=== PATIENT | female | born 1980 | race Caucasian/White ===

== ENCOUNTER → 2016-07-22 | Outpatient (CLI) | payer OTHER ==
[~2016-07-22] MED LIST: ALBUAER INH; ALBUAER2 INH; BUDE0.25 INH; ESCI10TA17 PO; FLUT0.15 INH; IPRASOL4 INH; MONT1TAB3 PO; MULT-506 PO; OMEP40CA PO; PLMINSR25 INH; PRED20TA2 PO; PRLSR20 PO; PROM25TA9 PO; PRVIN525X INH; RANI300T PO; RANI300T2 PO; VNTHFA/IN INH
--- NOTE | 2016-07-22 16:03 | DIAGNOSTIC IMAGING REPORT ---
Right upper quadrant ultrasound GALLBLADDER-ABD LIMITED CLINICAL HISTORY: R10.11 Abdominal pain, RUQ (right upper quadrant)Eval for joesph. Pain. Nausea. TECHNIQUE: Ultrasound COMPARISON STUDY: 07/03/2015 FINDINGS: Fatty infiltration of liver. Normal gallbladder. Common bile duct 4 mm. Pancreas and right kidney unremarkable. IMPRESSION: Fatty infiltration of liver. Otherwise negative study Electronically signed by: Norberto Craft M.D. 07/22/2016 4:02 PM Dictated Date/Time: 07/22/2016 4:01 PM
[2016-07-22 16:37] LABS: BASO % 0.5 %; BASO ABS # 0.03 K/uL (0-0.2); COMPLETE YES; EOS % 1.2 %; HEMATOCRIT 38.4 % (37-47); IG% 0.2 %; LYMPH % 34.9 %; LYMPH ABS # 2.27 K/uL (1.2-3.4); MEAN CELL VOLUME 86.3 fL (80-100); MEAN CORPUSCULAR HGB CONC 33.6 g/dl (32-36); MEAN PLATELET VOLUME 9.6 fL (7.4-10.4); MONO % 6.8 %; NEUT % 56.4 %; PLATELET COUNT 370 K/uL (130-400); RED BLOOD COUNT 4.45 M/uL (4.2-5.4); WHITE BLOOD COUNT 6.51 K/uL (4.8-10.8)
[2016-07-22 16:52] LABS: MANUAL MICROSCOPIC REQUIRED? YES; URINE APPEARANCE SL CLOUDY (CLEAR); URINE BILIRUBIN NEG (NEG); URINE COLOR YELLOW; URINE NITRITE NEG (NEG); URINE PH 5.5 (4.5-7.5); URINE SPECIFIC GRAVITY >= 1.030 (1.000-1.030); UROBILINOGEN NEG (NEG)
[2016-07-22 16:55] LABS: ALT/SGPT 23 U/L (12-78); AMYLASE 92 U/L (25-115); BLOOD UREA NITROGEN 10 mg/dl (7-18); BUN/CREATININE RATIO 10.6 (10-20); CALCIUM 8.9 mg/dl (8.5-10.1); CARBON DIOXIDE 27 mmol/L (21-32); CHLORIDE 106 mmol/L (98-107); CREATININE 0.98 mg/dl (0.60-1.20); GLUCOSE 84 mg/dl (70-99); POTASSIUM 3.9 mmol/L (3.5-5.1); SODIUM 141 mmol/L (136-145)
[2016-07-22 16:59] LABS: ALB/GLOB RATIO 0.9 (0.9-2); ALKALINE PHOSPHATASE 51 U/L (45-117); AST/SGOT 36 U/L (15-37); CHOLESTEROL 185 mg/dl (0-200); CHOLESTEROL/HDL RATIO 3.4; HDL CHOLESTEROL 55 mg/dl; TRIGLYCERIDES 113 mg/dl (0-150); VERY LOW DENSITY LIPOPROT CALC 23 mg/dl
[2016-07-22 17:05] LABS: REVIEW REQ? NO
[2016-07-22 17:08] LABS: URINE RBC 0-4 /hpf (0-4); URINE WBC 0 /hpf (0-5)
[2016-07-22 17:10] LABS: URINE BACTERIA 1+ (NEG); ZZUR CULT IF INDIC CLEAN CATCH YES
== END | disposition home or self-care (01) ==
LOC: C.ULTR 15:14
PROVIDERS: ATTEND Nurse Practitioner Family
DX: R10.11 Right upper quadrant pain (principal); Z13.220 Encounter for screening for lipoid disorders; K76.0 Fatty (change of) liver, not elsewhere classified

== ENCOUNTER → 2016-08-10 | Outpatient (CLI) | payer OTHER ==
[~2016-08-10] MED LIST changes: -PRED20TA2 PO; +SINCALIDE INJ 2.1 MCG in SODIUM CHLORIDE 0.9% 100ML 100 ML IV ONE
--- NOTE | 2016-08-10 11:48 | DIAGNOSTIC IMAGING REPORT ---
NUCLEAR HEPATOBILIARY SCAN WITH EJECTION FRACTION IMAGING CLINICAL HISTORY: Right upper quadrant abdominal pain. COMPARISON STUDY: Abdominal ultrasound dated 07/22/16. TECHNIQUE: Dynamic images of the liver and anterior abdomen were obtained every 5 minutes for a total of 60 minutes following the IV administration of 5.7mCi of technetium 99m Choletec. 2.1 mcg of sincalide was then injected with additional images acquired every 5 minutes for 45 minutes to calculate the gallbladder ejection fraction. The patient noted discomfort with the Kinevac injection. FINDINGS: The hepatobiliary scan shows prompt and homogeneous hepatic uptake. There is visualized activity within the intra and extrahepatic biliary tree at 15 minutes, and within the gallbladder at 15 minutes. There is normal biliary to bowel transit, with small bowel visualized by 70 minutes. On the sincalide imaging, the gallbladder ejection fraction was measured at 65%. IMPRESSION: 1. Unremarkable nuclear hepatobiliary scan. There is no scintigraphic evidence of cholecystitis. 2. The gallbladder ejection fraction measured 65% which is normal. Electronically signed by: Carlos Rodriguez M.D. 08/10/2016 11:47 AM Dictated Date/Time: 08/10/2016 11:45 AM
== END | disposition home or self-care (01) ==
LOC: C.NUCL 07:55
PROVIDERS: ATTEND Surgery
DX: R10.11 Right upper quadrant pain (principal)

== ENCOUNTER → 2016-08-31 | Day surgery (SDC) | payer OTHER ==
[2016-08-28 14:39] VITALS: BMI 42.0
[~2016-08-31] VITALS: Ht 157.5 cm; Wt 104.5 kg
[~2016-08-31] MED LIST changes: -ALBUAER2 INH; -BUDE0.25 INH; -ESCI10TA17 PO; +LIDOCAINE HCL 2% 2 ML VIAL (20MG/ML) ONE; -MULT-506 PO; -OMEP40CA PO; +PROPOFOL IV EMULSION 10 MG/ML 20 ML VIAL IV ONE; -RANI300T PO; -SINCALIDE INJ 2.1 MCG in SODIUM CHLORIDE 0.9% 100ML 100 ML IV ONE
[2016-08-31 09:37] VITALS: Ht 157.5 cm; Wt 104.5 kg
--- NOTE | 2016-08-31 10:10 | Endo History and Physical ---
History & Physical Date of Service: Aug 31, 2016. Chief Complaint: ABDOMINAL PAIN Referring Physician: GEOVANNY PRINCE NP History of Present Illness 36 yo CF who presents for EGD secondary to RUQ abdominal pain. Past Surgical History Hx Cardiac Surgery: No Hx Internal Defibrillator: No Hx Pacemaker: No Hx Abdominal Surgery: Yes (LEFT OOPHERECTOMY, PARTIAL HYSTER, , APPY, TUBAL LIGATION) Hx of Implantable Prosthesis: No Hx Post-Op Nausea and Vomiting: Yes Hx Cancer Surgery: No Hx Thoracic Surgery: No Hx Orthopedic: No Hx Urinary Tract Surgery: No Family History IBD Social History Smoking Status: Never Smoker Hx Substance Use: No Hx Alcohol Use: Yes (RARELY) Allergies Coded Allergies: Ciprofloxacin (Verified Allergy, Intermediate, FACIAL SWELLING/HIVES, 08/28) Moxifloxacin (Verified Adverse Reaction, Mild, VOMITING, 08/28/16) Current Medications Reported Home Medications Medications Dose Route/Sig Max Daily Dose Days Date Category Zantac (Ranitidine HCl) 300 Mg Tab 300 Mg PO HS 08/28/16 Reported Proventil Hfa (Albuterol Sulfate) 108 Mcg/Act Aer 1-2 Puff INH DIRECTED PRN 08/28/16 Reported Phenergan (Promethazine HCl) 25 Mg Tab 25 Mg PO Q6H PRN 08/28/16 Reported Prilosec (Omeprazole) 20 Mg Capcr 20 Mg PO BID 08/28/16 Reported Singulair (Montelukast Sodium) 10 Mg Tab 10 Mg PO HS 08/28/16 Reported Duoneb (Ipratropium-Albuterol) 3 Ml Nebu 1 Treatment INH Q4H PRN 08/28/16 Reported Flonase Allergy Relief (Fluticasone Propionate (Nasal)) 50 Mcg/Act Spr 1 [place] INH QAM 08/28/16 Reported Pulmicort Respules 0.25MG/2ML (Budesonide) 0.25 Mg/2 Ml Nebu 2 Ml INH DIRECTED PRN 08/28/16 Reported Vital Signs Weight (Kilograms): 104.55 Height (Feet): 5 Height (Inches): 2 Date Time Temp Pulse Resp B/P Pulse Ox O2 Delivery O2 Flow Rate FiO2 08/31/16 09:35 36.8 58 16 114/60 98 Room Air Physical Exam General Appearance: WD/WN, no apparent distress Respiratory/Chest: Auscultation: breath sounds normal Cardiovascular: Heart Auscultation: RRR Abdomen: Bowel Sounds: normal Inspection & Palpation: soft, non-distended, no tenderness, guarding & rebound Assessment and Plan Assessment: 36 yo CF who presents for EGD secondary to RUQ abdominal pain. Plan: Proceed with EGD.
--- NOTE | 2016-08-31 11:06 | GI REPORT ---
Procedure Date: 08/31/2016 10:48 AM Procedure: Upper GI endoscopy Indications: Abdominal pain in the right upper quadrant Medicines: Monitored Anesthesia Care Complications: No immediate complications. Estimated Blood Loss: Estimated blood loss: none. Procedure: Pre-Anesthesia Assessment: - Prior to the procedure, a History and Physical was performed, and patient medications and allergies were reviewed. The patient's tolerance of previous anesthesia was also reviewed. The risks and benefits of the procedure and the sedation options and risks were discussed with the patient. All questions were answered, and informed consent was obtained. Prior Anticoagulants: The patient has taken no previous anticoagulant or antiplatelet agents. ASA Grade Assessment: III - A patient with severe systemic disease. After reviewing the risks and benefits, the patient was deemed in satisfactory condition to undergo the procedure. After obtaining informed consent, the endoscope was passed under direct vision. Throughout the procedure, the patient's blood pressure, pulse, and oxygen saturations were monitored continuously. The scope was introduced through the mouth, and advanced to the second part of duodenum. The upper GI endoscopy was accomplished without difficulty. The patient tolerated the procedure well. Findings: LA Grade A (one or more mucosal breaks less than 5 mm, not extending between tops of 2 mucosal folds) esophagitis with no bleeding was found. A small hiatus hernia was present. Localized mild inflammation characterized by erythema was found in the gastric antrum. Biopsies were taken with a cold forceps for histology. The examined duodenum was normal. Impression: - LA Grade A reflux esophagitis. - Small hiatus hernia. - Gastritis. Biopsied. - Normal examined duodenum. Recommendation: - Resume previous diet. - Continue present medications. - Await pathology results. - Return to primary care physician as previously scheduled. Cayetano Garcia DO 08/31/2016 11:06:04 AM This report has been signed electronically. Note Initiated On: 08/31/2016 10:48 AM I attest to the content of the Intraoperative Record and orders documented therein, exceptions below
--- NOTE | 2016-08-31 11:14 | Discharge Instructions ---
Endoscopy Patient Instructions Date / Procedure(s) Performed Aug 31, 2016. EGD Allergy Information Coded Allergies: Ciprofloxacin (Verified Allergy, Intermediate, FACIAL SWELLING/HIVES, 08/28) Moxifloxacin (Verified Adverse Reaction, Mild, VOMITING, 08/28/16) Discharge Date / Findings Aug 31, 2016. Gastritis s/p biopsies Hiatal hernia Reflux esophagitis Medication Instructions OK to resume all medications today as prescribed. Reported Home Medications Medications Dose Route/Sig Max Daily Dose Days Date Category Zantac (Ranitidine HCl) 300 Mg Tab 300 Mg PO HS 08/28/16 Reported Proventil Hfa (Albuterol Sulfate) 108 Mcg/Act Aer 1-2 Puff INH DIRECTED PRN 08/28/16 Reported Phenergan (Promethazine HCl) 25 Mg Tab 25 Mg PO Q6H PRN 08/28/16 Reported Prilosec (Omeprazole) 20 Mg Capcr 20 Mg PO BID 08/28/16 Reported Singulair (Montelukast Sodium) 10 Mg Tab 10 Mg PO HS 08/28/16 Reported Duoneb (Ipratropium-Albuterol) 3 Ml Nebu 1 Treatment INH Q4H PRN 08/28/16 Reported Flonase Allergy Relief (Fluticasone Propionate (Nasal)) 50 Mcg/Act Spr 1 [place] INH QAM 08/28/16 Reported Pulmicort Respules 0.25MG/2ML (Budesonide) 0.25 Mg/2 Ml Nebu 2 Ml INH DIRECTED PRN 08/28/16 Reported Provider Instructions Activity Restrictions - No exercising or heavy lifting for 24 hours. - Do not drink alcohol the day of the procedure. - Do not drive a car or operate machinery until the day after the procedure. - Do not make any important decisions or sign important papers in 24 hours after the procedure. Following Day: - Return to full activity which may include returning to work/school. Diet Start your diet with liquids and light foods (jello, soup, juice, toast). Then eat your usual diet if not nauseated. Treatment For Common After Affects For mild abdominal pain, bloating, or excessive gas: - Rest - Eat lightly - Lie on right side Follow-Up Information Follow-up with GEOVANNY PRINCE NP as scheduled Anesthesia Information What You Should Know You have had a procedure that required some medicine to reduce anxiety and discomfort. This treatment is called moderate sedation. After receiving the treatment, you may be sleepy, but you will be able to breathe on your own. The effects of the treatment may last for several hours. Follow these instructions along with Activity/Diet recommendations noted above: * Do NOT do anything where dizziness or clumsiness would be dangerous. * Rest quietly at home today, then you can be up and about tomorrow. * Have a responsible person stay with you the rest of today. * You may have had an I.V. today. If so, you may take the dressing off later today. Recommendations Call your doctor if: * Trouble breathing * Continuous vomiting for more than 24 hours * Temperature above 101 degrees * Severe abdominal pain or bloating * Pain not relieved by pain medicine ordered * There is increased drainage or redness from any incision * A large amount of rectal bleeding greater than 2-3 tablespoons. (If you had a polyp/s removed or have hemorrhoids, a small amount of blood - from the rectum is to be expected.) * You have any unanswered questions or concerns. IN THE EVENT OF A SERIOUS EMERGENCY, GO TO THE NEAREST EMERGENCY ROOM Your discharge instructions were prepared by provider Cayeatno Garcia. Patient Instructions Signature Page Estefanía Phani Patient (or Guardian) Signature/Date: I have read and understand the instructions given to me by my caregivers. Caregiver/RN/Doctor Signature/Date: The above-named patient and/or guardian has received patient instructions on this date. + Original Patient Signature Page (only) stays with chart. Please make copy for patient.
[2016-08-31 11:34] VITALS: BP 106/57; PULSE 64; O2SAT 98
--- NOTE | 2016-08-31 11:34 | Anesthesiology Progress Note ---
Anesthesia Post Op Note Date & Time Aug 31, 2016 at 11:33 Vital Signs Pain Intensity: 6 Vital Signs Past 12 Hours Date Time Temp Pulse Resp B/P Pulse Ox O2 Delivery O2 Flow Rate FiO2 08/31/16 11:19 57 18 113/58 98 Room Air 08/31/16 11:04 75 18 91/52 97 Room Air 08/31/16 09:35 36.8 58 16 114/60 98 Room Air Notes Mental Status: alert / awake / arousable, participated in evaluation Pt Amnestic to Procedure: Yes Nausea / Vomiting: adequately controlled Pain: adequately controlled Airway Patency, RR, SpO2: stable & adequate BP & HR: stable & adequate Hydration State: stable & adequate Anesthetic Complications: no major complications apparent
== END | disposition home or self-care (01) ==
LOC: C.GI 09:16
PROVIDERS: ATTEND Internal Medicine
DX: R10.11 Right upper quadrant pain (principal); K21.0 Gastro-esophageal reflux disease with esophagitis; K44.9 Diaphragmatic hernia without obstruction or gangrene

== ENCOUNTER → 2016-09-15 | Outpatient (CLI) | payer OTHER ==
[~2016-09-15] MED LIST changes: -LIDOCAINE HCL 2% 2 ML VIAL (20MG/ML) ONE; -PROPOFOL IV EMULSION 10 MG/ML 20 ML VIAL IV ONE; -PRVIN525X INH; -VNTHFA/IN INH
[2016-09-16 12:53] LABS: URINE APPEARANCE CLEAR (CLEAR); URINE BILIRUBIN NEG (NEG); URINE COLOR YELLOW; URINE NITRITE NEG (NEG); URINE SPECIFIC GRAVITY 1.021 (1.000-1.030); UROBILINOGEN NEG (NEG)
[2016-09-16 13:04] LABS: MANUAL MICROSCOPIC REQUIRED? NO; REVIEW REQ? YES
== END | disposition home or self-care (01) ==
LOC: C.LABSPEC 11:28
PROVIDERS: ATTEND Nurse Practitioner Family
DX: R35.0 Frequency of micturition (principal); R39.15 Urgency of urination; A49.8 Other bacterial infections of unspecified site

== ENCOUNTER → 2017-01-07 | Outpatient (CLI) | payer OTHER ==
[2017-01-10 14:08] LABS: CHLAMYDIA TRACH RNA*** NOT DETECTED (NOT DETECTED); GC (NEIS GONORRHOEAE)RNA** NOT DETECTED (NOT DETECTED)
== END | disposition home or self-care (01) ==
LOC: C.LABSPEC 13:13
PROVIDERS: ATTEND Obstetrics & Gynecology
DX: Z11.3 Encounter for screening for infections with a predominantly sexual mode of transmission (principal)

== ENCOUNTER → 2017-01-07 | Outpatient (CLI) | payer OTHER | END | disposition home or self-care (01) | LOC: C.LAB 10:50 | PROVIDERS: ATTEND Obstetrics & Gynecology | DX: Z11.3 Encounter for screening for infections with a predominantly sexual mode of transmission (principal) ==

== ENCOUNTER → 2017-05-20 | Outpatient (CLI) | payer OTHER ==
[2017-05-20 17:55] LABS: BASO % 0.4 %; BASO ABS # 0.03 K/uL (0-0.2); COMPLETE YES; EOS % 4.2 %; HEMATOCRIT 38.6 % (37-47); IG% 0.3 %; LYMPH % 37.2 %; LYMPH ABS # 2.49 K/uL (1.2-3.4); MEAN CELL VOLUME 87.9 fL (80-100); MEAN CORPUSCULAR HEMOGLOBIN 28.9 pg (25-34); MEAN CORPUSCULAR HGB CONC 32.9 g/dl (32-36); MEAN PLATELET VOLUME 9.3 fL (7.4-10.4); MONO % 9.4 %; NEUT % 48.5 %; PLATELET COUNT 364 K/uL (130-400); RED BLOOD COUNT 4.39 M/uL (4.2-5.4)
[2017-05-20 18:11] LABS: ALT/SGPT 22 U/L (12-78); BLOOD UREA NITROGEN 15 mg/dl (7-18); BUN/CREATININE RATIO 15.4 (10-20); C-REACTIVE PROTEIN < 0.29 mg/dl (0-0.29); CALCIUM 8.5 mg/dl (8.5-10.1); CARBON DIOXIDE 26 mmol/L (21-32); CHLORIDE 105 mmol/L (98-107); GLUCOSE 79 mg/dl (70-99); POTASSIUM 3.8 mmol/L (3.5-5.1); SODIUM 138 mmol/L (136-145)
[2017-05-20 18:13] LABS: ALB/GLOB RATIO 0.9 (0.9-2); ALKALINE PHOSPHATASE 62 U/L (45-117); AST/SGOT 35 U/L (15-37)
[2017-05-25 05:31] LABS: IGA SERUM 242 mg/dL (81-463); TIS TRANS IGA 1 U/mL (<4)
== END | disposition home or self-care (01) ==
LOC: C.LAB1850 16:39
PROVIDERS: ATTEND Registered Nurse
DX: K63.89 Other specified diseases of intestine (principal)

== ENCOUNTER → 2017-07-06 | Outpatient (CLI) | payer OTHER | END | disposition home or self-care (01) | LOC: C.LAB1850 11:14 | PROVIDERS: ATTEND Family Medicine | DX: E53.8 Deficiency of other specified B group vitamins (principal); R53.83 Other fatigue ==

== ENCOUNTER → 2017-07-06 | Outpatient (CLI) | payer OTHER | END | disposition home or self-care (01) | LOC: C.PAPS 13:26 | PROVIDERS: ATTEND Obstetrics & Gynecology | DX: Z01.419 Encounter for gynecological examination (general) (routine) without abnormal findings (principal) ==

== ENCOUNTER → 2017-07-12 | Outpatient (CLI) | payer OTHER ==
--- NOTE | 2017-07-12 16:16 | DIAGNOSTIC IMAGING REPORT ---
CHEST 2 VIEWS ROUTINE HISTORY: J45.901 Asthma with acute [id number] COMPARISON: Chest 09/23/2013. FINDINGS: The lungs are clear. Cardiac silhouette is normal in size. No pleural effusions. No pneumothorax. IMPRESSION: No acute process. Electronically signed by: German Slade M.D. 07/12/2017 4:15 PM Dictated Date/Time: 07/12/2017 4:14 PM
== END | disposition home or self-care (01) ==
LOC: C.LAB1850 15:38
PROVIDERS: ATTEND Nurse Practitioner Family
DX: J45.901 Unspecified asthma with (acute) exacerbation (principal)

== ENCOUNTER 2020-04-21 19:11 | Inpatient (IN) ==
[2020-04-21] MEDS ORDERED: SODIUM CHLORIDE 0.9% 1000ML 1,000 ML IV ONE (19:28)
--- NOTE | 2020-04-21 19:32 | Emergency Department Note ---
Impression & Plan Syncope, Anemia, GI bleed ED Provider Note NAME: SHANA TATE AGE: 39 SEX: F : 1980 ARRIVES VIA: Walk-In INFORMANT: Patient ED PROVIDER(S): Garland Khan DO CHIEF COMPLAINT: Unresponsiveness HPI: Patient is a 39-year-old female with a past medical history of asthma and esophagitis and Crohn's disease who presents the ER for an episode where she pas sed out and had diffuse upper body shaking for about 20 seconds. This resolved. She was out for about a total of 2 to 3 minutes. When she woke up she was a little confused but within 3 minutes knew exactly where she was or what was and what was going on. This was witnessed by her daughters. Following this she has some paresthesias of the left lateral mid forearm to 1st digit. No weakness. S he also has some paresthesias in her tongue. Denies any loss of bowel or bladder. Admits to some midsternal chest pain. No shortness of breath. No belly pain nausea vomiting or diarrhea. She has had this happen to her once before in the past but was never seen. ROS: See above HPI for pertinent positives & negatives. A total of 10 systems reviewed and were otherwise negative. PAST MEDICAL HISTORY:See Below PAST SURGICAL HISTORY:See Below FAMILY HISTORY:See Below SOCIAL HISTORY:See Below HOME MEDICATIONS:See Below ALLERGIES:See Below VITALS:See Below PHYSICAL EXAMINATION: GENERAL: Sitting up in bed, alert, well appearing, well nourished, no distress, non-toxic EYE EXAM: normal conjunctiva. PERRL and EOM's grossly intact. OROPHARYNX: no exudate, no erythema, lips, buccal mucosa, and tongue normal and mucous membranes are moist NECK: supple, no nuchal rigidity, no adenopathy, non-tender LUNGS: Clear to auscultation. Normal chest wall mechanics HEART: no murmurs, S1 normal and S2 normal ABDOMEN: abdomen soft, non-tender, normo-active bowel sounds, no masses, no rebound or guarding. BACK: Back is symmetrical on inspection and there is no deformity, no midline tenderness, no CVA tenderness. SKIN: no rashes and no bruising UPPER EXTREMITIES: upper extremities are grossly normal. LOWER EXTREMITIES: No pitting edema. NEURO EXAM: Normal sensorium, cranial nerves II-XII intact, normal speech, no weakness of arms, no weakness of legs. No drift. Finger to nose intact. Gross sensation intact. [id number] intact. Rapid alternating movements of upper extremities intact MEDICAL DECISION MAKING: Pt is a 39 y/o female who presents to the ER for syncope versus seizure episode of unresponsiveness. There was no shaking of the upper extremities. When she woke up there is a slight postictal phase. She is completely appropriate at this time. She has some paresthesias in the left upper extremity and tongue which are resolved in the tongue and improving in the left hand. She is completely neurologically intact. Significant anemia at 7.3 with a hemoglobin is trended down from 11. D-dimer was elevated and CT angio was performed and unremarkable. BMP on LFTs bilirubin and troponin was negative. Lipase was normal. Rectal with scant heme positive stool. Patient was given IV fluids. EKG was nondiagnostic. She was updated bedside admitted for further work-up of her syncope/seizure in combination with worsening anemia and midsternal chest pain with an unchanged EKG and negative troponin. Triage Nursing notes reviewed. Prior medical records reviewed Vital Signs: reviewed and remarkable for HTN and tachy Differential diagnosis: Differential diagnosis includes etiologies such as infection, hypoglycemia, electrolyte abnormalities, cardiac sources, intracerebral event, trauma, toxi cologic, neurologic, as well as others were entertained. ER treatment provided: See below Diagnostics interpreted by me: ECG: Sinus rhythm rate 81 Normal axis T wave inversion in lead III Normal QTC No PVCs Cardiac Monitoring: An order was placed for continuous cardiac monitoring. The monitor shows a rate of 84 with sinus rhythm. Laboratory studies: As stated above and show below. Imaging studies: CT of the head was negative CT Angio of the chest shows no acute pathology. Consultation(s): Discussed with Dr. Duke Savage for further evaluation ED COURSE: Procedures: none Critical Care: None Past Med/Surg History Medical History (Updated 04/21/20 @ 23:28 by Garland Khan DO) Asthmatic bronchitis delivery delivered Depression Dysfunctional uterine bleeding (11/15/11) Pneumonia Solitary thyroid nodule Surgical History H/O section H/O oophorectomy Left H/O: hysterectomy History of appendectomy Hx of tubal ligation [place] teeth removed Family History Mother Breast cancer Colon cancer Father COPD (chronic obstructive pulmonary disease) Colon cancer Crohn's disease Other Arthritis Asthma Atypical chest pain Cancer Chronic cough Hypertension Kidney stone Migraine Denies family history of Ovarian cancer Prostate cancer Myocardial infarction Social History Smoking Status: Never smoker Hx Alcohol Use: Yes Alcohol type: wine Alcohol Intake Frequency: Monthly or Less Hx Substance Use: No Preferred Language: Venezuelan Communication Ability: Effective Visual Impairment: No Limitations Hearing Ability: Normal marital status: Current Living Situation: Spouse current occupational status: employed current occupation: works at [employer] Feels Safe at Home: Yes Childhood Exposure to Second-Hand Smoke: Yes Dental Care, Regularly: Yes Physical Activity Frequency: 3-4 Times per Week Seatbelt Use: always Sunscreen Use: Yes Do you think of yourself as: straight/heterosexual Allergies Allergies Allergy/AdvReac Type Severity Reaction Status Date / Time Cipro Allergy Intermediate FACIAL Verified 08/31/16 14:37 SWELLING/HIVES ciprofloxacin Allergy MO FACIAL Verified 04/21/20 20:14 SWELLING/HIVES cat dander Allergy Unknown Verified 04/21/20 20:14 dog dander Allergy Unknown Verified 04/21/20 20:14 house dust Allergy Unknown Verified 04/21/20 20:14 mold Allergy Unknown Verified 04/21/20 20:14 pollen extracts Allergy Unknown Verified 04/21/20 20:14 wheat Allergy Unknown Verified 04/21/20 20:14 moxifloxacin AdvReac CA VOMITING Verified 04/21/20 20:14 Home Meds Home Medications Medication Instructions Recorded Confirmed ipratropium-albuterol 3 ml INHALATION Q4H PRN 03/06/18 04/21/20 fluticasone 500 mcg-salmeterol 50 1 puffs INHALATION BID PRN ea 07/11/19 04/21/20 mcg/dose blistr powdr for inhalation fluticasone propionate [Flonase 1 spray INTRANASAL QAM PRN 04/21/20 04/21/20 Allergy Relief] Previous Rx's Medication Instructions Recorded montelukast 10 mg tablet 10 mg PO PM #90 tab 01/19/19 famotidine 20 mg tablet 20 mg PO BID 42 Days #84 tab 04/14/19 albuterol sulfate 90 mcg/actuation 1 - 2 puff INHALATION Q6H PRN #6.7 09/29/19 aerosol inhaler gm inhaler,assist devices,access #1 ea 09/29/19 pantoprazole 40 mg tablet,delayed 40 mg PO BID #180 tab 01/25/20 release escitalopram oxalate 20 mg tablet 20 mg PO DAILY #30 tab 02/14/20 ferrous sulfate 325 mg (65 mg 325 mg PO BID #60 tab 02/23/20 iron) tablet,delayed release cyclobenzaprine 5 mg tablet 5 mg PO DAILY PRN #30 tab 03/27/20 sodium,potassium,mag sulfates 17.5 177 ml PO .COMPLEX #354 ml 04/15/20 gram-3.13 gram-1.6 gram oral soln Results & Data (ED) Vital Signs Vital Signs - 24 hr 04/21/20 19:13 04/21/20 20:38 04/21/20 21:15 Temperature 36.9 C Temperature Source Oral Pulse Rate 100 H Pulse Rate [Finger] 99 H Respiratory Rate 20 21 Respiratory Effort / Characteristics Non-Labored Spontaneous Non-Labored Spontaneous Respiratory Depth Normal Normal Blood Pressure 169/100 H Blood Pressure [Right Arm] 132/94 Blood Pressure Mean 123 Blood Pressure Mean [Right Arm] 106 Pulse Oximetry 98 99 Oxygen Delivery Method Room Air Room Air Room Air Sepsis Recent Fever Within 48 Hours No Sepsis New/Unexplained Change in Mental Status No Sepsis Action Taken by Nursing No Action Required Laboratory Data Result diagrams: 04/21/20 20:10 04/21/20 20:10 Lab Results 04/21/20 04/21/20 04/21/20 Range/Units 20:10 20:10 20:10 WBC 7.67 (4.8-10.8) K/uL RBC 3.77 L (4.2-5.4) M/uL Hgb 7.3 L (12.0-16.0) g/dL Hct 26.0 L (37-47) % MCV 69.0 L (80-100) fL MCH 19.4 L (25-34) pg MCHC 28.1 L (32-36) g/dL RDW Std Deviation 44.5 (36.4-46.3) fL RDW Coeff of [place] 17.5 H (11.5-14.5) % Plt Count 531 H (130-400) K/uL MPV 9.0 (7.4-10.4) fL Immature Gran % (Auto) 0.3 % Neut % (Auto) 57.3 % Lymph % (Auto) 32.1 % [place] % (Auto) 6.4 % Eos % (Auto) 3.4 % Baso % (Auto) 0.5 % Neut # (Auto) 4.40 (1.4-6.5) K/uL Lymph # (Auto) 2.46 (1.2-3.4) K/uL [place] # (Auto) 0.49 (0.11-0.59) K/uL Eos # (Auto) 0.26 (0-0.5) K/uL Baso # (Auto) 0.04 (0-0.2) K/uL Immature Gran # (Auto) 0.02 (0.00-0.02) K/uL Hypochromasia Present Microcytosis Present Ovalocytes 1+ PT 10.2 (9.0-12.0) Seconds INR 1.0 (0.9-1.1) APTT 23.4 (21.0-31.0) Seconds PTT Ratio 0.8 D-Dimer 1080 H* (0-500) ug/L FEU Sodium 139 (136-145) mmol/L Potassium 3.8 (3.5-5.1) mmol/L Chloride 107 (98-107) mmol/L Carbon Dioxide 27 (21-32) mmol/L Anion Gap 5.0 (3-11) BUN 14 (7-18) mg/dl Creatinine 0.98 (0.6-1.2) mg/dl Est Cr Clr Drug Dosing 94.0 ml/min Est GFR ( Amer) 83.0 Est GFR (Non-Af Amer) 71.6 BUN/Creatinine Ratio 14.6 (10-20) Glucose 97 (70-99) mg/dl Calcium 8.7 (8.5-10.1) mg/dl Total Bilirubin 0.2 (0.2-1) mg/dl AST 34 (15-37) U/L ALT 18 (12-78) U/L Alkaline Phosphatase 77 (45-117) U/L Troponin I < 0.015 (0-0.045) ng/ml Total Protein 7.8 (6.4-8.2) gm/dl Albumin 3.5 (3.4-5.0) gm/dl Globulin 4.3 H (2.5-4.0) gm/dl Albumin/Globulin Ratio 0.8 L (0.9-2) Lipase 216 (73-393) U/L Administered Medications Discontinued Medications Sodium Chloride (Nss 1000ml) 1,000 mls @ 999 mls/hr IV .Q1H1M ONE Stop: 04/21/20 20:28 Last Infusion: 04/21/20 21:31 Dose: 0 mls/hr Documented by: [id number] Admin: 04/21/20 20:28 Dose: 999 mls/hr Documented by: [id number] Ioversol (Optiray 320 125ml) 120 ml IV ONCE ONE Stop: 04/21/20 21:27 Last Admin: 04/21/20 21:28 Dose: 120 ml Documented by: [id number] Discharge Plan Visit Data Chief Complaint: Illness Stated Complaint: SYNCOPE, TINGLING IN L HAND, CHEST PAIN, [place] ED Provider: Garland Khan Discharge Problem: Syncope, Anemia, GI bleed Forms Stand Alone Forms: [facility] Hypertension Diagnostics Prescriptions Prescriptions: No Action famotidine [Acid Salvage Clerk (famotidine)] 20 mg tablet 20 mg PO BID 42 Days Qty: 84 RF: 3 pantoprazole 40 mg tablet,delayed release (DR/EC) 40 mg PO BID Qty: 180 RF: 1 escitalopram oxalate 20 mg tablet 20 mg PO DAILY Qty: 30 RF: 5 ferrous sulfate 325 mg (65 mg iron) tablet,delayed release (DR/EC) 325 mg PO BID Qty: 60 RF: 0 Suprep Bowel Prep Kit 17.5-3.13-1.6 gram recon soln 177 ml PO .COMPLEX Qty: 354 RF: 0 montelukast [Singulair] 10 mg tablet 10 mg PO PM Qty: 90 RF: 0 cyclobenzaprine 5 mg tablet 5 mg PO DAILY PRN (Reason: muscle spasm) Qty: 30 RF: 0 fluticasone propion-salmeterol 500-50 mcg/dose blister with device 1 puffs inhalation BID PRN (Reason: Shortness Of Breath) RF: 0 albuterol sulfate [Proventil HFA] 90 mcg/actuation HFA aerosol inhaler 1 - 2 puff INHALATION Q6H PRN (Reason: Shortness Of Breath) Qty: 6.7 RF: 3 (DME) inhaler,assist devices,access Device See Rx Instructions .ROUTE .MEDSUPPLY Qty: 1 RF: 0 fluticasone propionate [Flonase Allergy Relief] 50 mcg/actuation spray,suspension 1 spray INTRANASAL QAM PRN (Reason: Nasal Congestion) RF: 0 ipratropium-albuterol 0.5 mg-3 mg(2.5 mg base)/3 mL Solution For Nebulization 3 ml Inhalation Q4H PRN (Reason: Shortness Of Breath) RF: 0 Discharge Problem: Syncope Qualifiers: Syncope type: unspecified Qualified Code(s): R55 - Syncope and collapse Anemia Qualifiers: Anemia type: unspecified type Qualified Code(s): D64.9 - Anemia, unspecified GI bleed Qualifiers: GI bleed type/associated pathology: unspecified gastrointestinal hemorrhage type Qualified Code(s): K92.2 - Gastrointestinal hemorrhage, unspecified
--- NOTE | 2020-04-21 20:01 | XRay Report ---
XR chest 1V portable CLINICAL HISTORY: Atypical chest pain. COMPARISON STUDY: Chest radiograph July 11, 2019. FINDINGS: Lung volumes are normal. There is no pneumothorax or pleural effusion. A small hiatal herni a is present. Cardiac size is at the upper limits of normal. There is no consolidation or evidence fo r pulmonary edema. IMPRESSION: 1. No acute cardiopulmonary findings. 2. Hiatal hernia. ACT 112: Negative or not required by law. Electronically signed by: Wojciech Emery M.D. 04/21/2020 7:59 PM
[2020-04-21 20:33] LABS: Partial Thromboplastin Ratio 0.8; Partial Thromboplastin Time 23.4 Seconds (21.0-31.0); Prothrombin Time 10.2 Seconds (9.0-12.0)
[2020-04-21 20:37] LABS: D Dimer 1080 ug/L FEU (0-500)
[2020-04-21 20:43] LABS: Alanine Aminotransferase 18 U/L (12-78); Albumin Level 3.5 gm/dl (3.4-5.0); Aspartate Aminotransferase 34 U/L (15-37); BUN Creatinine Ratio 14.6 (10-20); Blood Urea Nitrogen 14 mg/dl (7-18); Calcium 8.7 mg/dl (8.5-10.1); Carbon Dioxide 27 mmol/L (21-32); Chloride 107 mmol/L (98-107); Est GFR (Non-African American) 71.6; Glucose 97 mg/dl (70-99); Lipase 216 U/L (73-393); Potassium 3.8 mmol/L (3.5-5.1); Sodium 139 mmol/L (136-145)
[2020-04-21 20:45] LABS: Basophils # (auto) 0.04 K/uL (0-0.2); Basophils % (auto) 0.5 %; Eosinophils # (auto) 0.26 K/uL (0-0.5); Eosinophils % (auto) 3.4 %; Hemoglobin 7.3 g/dL (12.0-16.0); Hypochromasia Present; Immature Granulocytes # (auto) 0.02 K/uL (0.00-0.02); Immature Granulocytes % (auto) 0.3 %; Lymphocytes # (auto) 2.46 K/uL (1.2-3.4); Lymphocytes % (auto) 32.1 %; Mean Corpuscular Hemoglobin 19.4 pg (25-34); Mean Corpuscular Hgb Conc 28.1 g/dL (32-36); Microcytosis Present; Monocytes # (auto) 0.49 K/uL (0.11-0.59); Monocytes % (auto) 6.4 %; Neutrophils % (auto) 57.3 %; Ovalocytes 1+; Platelet Count 531 K/uL (130-400); RDW Coefficient of Variation 17.5 % (11.5-14.5); RDW Standard Deviation 44.5 fL (36.4-46.3); Red Blood Count 3.77 M/uL (4.2-5.4); White Blood Count 7.67 K/uL (4.8-10.8)
[2020-04-21 20:48] LABS: Albumin Globulin Ratio 0.8 (0.9-2); Alkaline Phosphatase 77 U/L (45-117); Bilirubin,Total 0.2 mg/dl (0.2-1); Globulin 4.3 gm/dl (2.5-4.0); Total Protein 7.8 gm/dl (6.4-8.2); Troponin I < 0.015 ng/ml (0-0.045)
[2020-04-21] MEDS ORDERED: OPTIRAY 320 125ml IV ONE (21:26)
--- NOTE | 2020-04-21 23:10 | History & Physical Report ---
Date of Service April 21, 2020 Assessment & Plan (1) Syncope: Estefanía Faith is a 39-year-old female with a past medical history of asthma, reflux esophagitis with hiatal hernia, concern for Crohn's versus IBD not on steroids or Biologics, and progressive lightheadedness who presents to [facility] emergency department following an episode of syncope. Syncope suspect 2/2 anemia of chronic GI bleed Patient with syncopal episode, lasted less than 1 minute, did not strike her head. No tongue biting, does not appear consistent with seizure by history. CThead: No acute findings Hemoglobin decreased to 7.2, Hemoccult positive. Patient with hemoglobin of 11 2 years ago, 8.32 months ago. Pending outpatient work-up and was to have GI evaluation this Wednesday. Microcytosis 69fL Iron studies pending Type and screen ordered, blood consent completed. Transfused 2 hemoglobin threshold of 7.0. Continue iron supplementation, patient may benefit from IV iron infusion during admission GI bleed management as below EKG shows no acute changes and no signs of ischemia Cardiac exam reveals a systolic murmur most likely flow murmur, given episode of sudden syncope x2 we will proceed with TTE Chronic GI bleed Hemoccult positive stool, patient with no dick bleeding or hematemesis by hi story Microcytosis and anemia as above Protonix 40 mg twice daily IV push Famotidine 20 mg twice daily IV push GI consulted Hemodynamically stable at this time N.p.o. plus meds 2 g Rocephin x1 dose given for GI bleed. No signs of acute abdomen Chest pain Patient with some chest pain on admission. Reproducible, center of chest EKG without ischemic findings, troponin negative on admission. Repeat troponin at 6 hours. Suspect noncardiac, differential includes costochondritis TTE pending for syncope with murmur as above D-dimer elevated at 1080, unclear etiology. CTA shows no PE, no effusion/consolidation consistent with pneumonia. No leg swelling Or edema on LE exam. Asthma Continue home inhalers Continue montelukast 10 mg daily DuoNebs as needed Anxiety Continue Lexapro 20 mg daily Patient has a pending outpatient Covid test which was ordered as preop by gastroenterology. She has a history of allergy with cough when exposed to dust or allergens, but otherwise has not had any cough, shortness of breath, fever, chills, change in taste or smell, or diarrhea. She denies any Covid exposures prior to admission. DVT prophylaxis: SCDs. Defer pharmacal prophylaxis pharmacal prophylaxis contraindicated in the setting of GI bleed Diet: N.p.o. NSS +20 KCl 125 cc/h Disposition: Medical/surgical with telemetry CODE STATUS: Full code, discussed with patient at bedside (2) Anemia: (3) Chronic reflux esophagitis: (4) Allergic rhinitis: (5) Asthma: History of Present Illness Chief Complaint: Syncope Primary Care Provider: Bhavya Israel MD Estefanía Faith is a 39-year-old female with a past medical history of asthma, reflux esophagitis with hiatal hernia, concern for Crohn's versus IBD not on steroids or Biologics, and progressive lightheadedness who presents to the emergency department following an episode of syncope. Estefanía reports her symptoms began several months ago and she had a syncopal episode in February. She was found to have low blood counts at that time. She was pursuing outpatient work-up, and was scheduled for a GI evaluation this Wednesday for which she has a pending Covid test although she has had no symptoms of Covid. She reports that she presented to the emergency department because at dinner the evening of admission she was in an otherwise normal state of health when she became extremely lightheaded and her 16 and 17-year-old girls saw her become confused, lay back, and have an episode of body shaking. This episode lasted less than 1 minute and when she came to she quickly returned to her normal baseline level of cognitive function with no strength or neurologic deficits. She had a headache in the back and front of her head following this episode which has been throbbing. She did not have any incontinence or tongue biting during this episode. In the past few weeks she has had progressively worsening lightheadedness when standing too quickly or bending over. She has had intermittently low blood pressure. She had a Hemoccult positive stool on admission. At her outpatient work-up she was noted to be progressively anemic, with a hemoglobin of 11 2 years ago which had dropped to 8/9 as an outpatient 2 months ago. She was pending outpatient work-up as above. She has been taking iron twice daily, but notes that this upsets her stomach and sometimes cause her to become nauseous or vomit. She has intermittently had episodes of sudden nausea and vomiting without blood or bile when eating meals, but reports that this is inconsistent and is not usually preceded by feeling nauseous during the day. She has a history of intermittent bowel changes which were thought to be possibly due to Crohn's versus IBD, she reports she does not have any family history of Crohn's or autoimmune disease. She has not had blood in her bowel movements. She denies recent diarrhea and constipation. She has not had any fever, chills, cough, change in taste or smell, or Covid exposure. She is having some central chest pain which is worse with pressing on it. Du ring her episode she did not fall and strike her head or chest. Medical history: Reviewed Surgical history: Reviewed Allergies: Reviewed Family history: No family history of colorectal cancer, remaining family history reviewed Social history: Denies tobacco, alcohol, and recreational drug use. Lives at home with her and 2 daughters. No sick contacts in the home. CODE STATUS: Full code Allergies Allergy/AdvReac Type Severity Reaction Status Date / Time Cephalosporins Allergy Severe anaphylaxis Verified 04/21/20 23:54 Cipro Allergy Intermediate FACIAL Verified 08/31/16 14:37 SWELLING/HIVES ciprofloxacin Allergy MO FACIAL Verified 04/21/20 20:14 SWELLING/HIVES cat dander Allergy Unknown Verified 04/21/20 20:14 dog dander Allergy Unknown Verified 04/21/20 20:14 house dust Allergy Unknown Verified 04/21/20 20:14 mold Allergy Unknown Verified 04/21/20 20:14 pollen extracts Allergy Unknown Verified 04/21/20 20:14 wheat Allergy Unknown Verified 04/21/20 20:14 moxifloxacin AdvReac [place] VOMITING Verified 04/21/20 20:14 Home Medications Home Medications Medication Instructions Recorded Confirmed Type ipratropium-albuterol 3 ml INHALATION Q4H PRN 03/06/18 04/21/20 History montelukast 10 mg tablet 10 mg PO PM #90 tab 01/19/19 04/21/20 Rx famotidine 20 mg tablet 20 mg PO BID 42 Days #84 tab 04/14/19 04/21/20 Rx fluticasone 500 mcg-salmeterol 50 1 puffs INHALATION BID PRN ea 07/11/19 04/21/20 History mcg/dose blistr powdr for inhalation albuterol sulfate 90 mcg/actuation 1 - 2 puff INHALATION Q6H PRN #6.7 09/29/19 04/21/20 Rx aerosol inhaler gm inhaler,assist devices,access #1 ea 09/29/19 04/21/20 Rx pantoprazole 40 mg tablet,delayed 40 mg PO BID #180 tab 01/25/20 04/21/20 Rx release escitalopram oxalate 20 mg tablet 20 mg PO DAILY #30 tab 02/14/20 04/21/20 Rx ferrous sulfate 325 mg (65 mg 325 mg PO BID #60 tab 02/23/20 04/21/20 Rx iron) tablet,delayed release cyclobenzaprine 5 mg tablet 5 mg PO DAILY PRN #30 tab 03/27/20 04/21/20 Rx sodium,potassium,mag sulfates 17.5 177 ml PO .COMPLEX #354 ml 04/15/20 04/21/20 Rx gram-3.13 gram-1.6 gram oral soln fluticasone propionate [Flonase 1 spray INTRANASAL QAM PRN 04/21/20 04/21/20 History Allergy Relief] Past Med/Surg History Medical History Asthmatic bronchitis delivery delivered Depression Dysfunctional uterine bleeding (11/15/11) Pneumonia Solitary thyroid nodule Surgical History H/O section H/O oophorectomy Left H/O: hysterectomy History of appendectomy Hx of tubal ligation [place] teeth removed Family History Mother Breast cancer Colon cancer Father COPD (chronic obstructive pulmonary disease) Colon cancer Crohn's disease Other Arthritis Asthma Atypical chest pain Cancer Chronic cough Hypertension Kidney stone Migraine Denies family history of Ovarian cancer Prostate cancer Myocardial infarction Social History Smoking Status: Never smoker Hx Alcohol Use: Yes Alcohol type: wine Alcohol Intake Frequency: Monthly or Less Hx Substance Use: No Preferred Language: Yakut Communication Ability: Effective Visual Impairment: No Limitations Hearing Ability: Normal Wire Dropper Required: No Beliefs That Will Affect Care: None marital status: Current Living Situation: Spouse and Family Current Living Situation Comment: and 2 children current occupational status: employed current occupation: works at intermediate Feels Safe at Home: Yes Safety Concerns: Feels Safe At This Time Childhood Exposure to Second-Hand Smoke: Yes Dental Care, Regularly: Yes Physical Activity Frequency: 3-4 Times per Week Seatbelt Use: always Sunscreen Use: Yes Do you think of yourself as: straight/heterosexual Assistive Devices: None Review of Systems Review of Systems: All systems reviewed & are unremarkable except as noted in HPI & below Physical Exam Physical Exam: General: A&Ox3. NAD. Cooperative. HEENT: Atraumatic, normocephalic.Pupils equal and reactive to light and accommodation. Extraocular movements intact without nystagmus. Visual acuity grossly intact. Hearing grossly intact. Pulm: CTAB A&P. -wheezes, -rales, -rhonchi. Symmetrical chest rise. No increase work of breathing. No respiratory distress. Cardiac: RRR, Systolic murmur present at right upper sternal border consistent with flow murmur.. No carotid bruits appreciated. Abdominal: Nontender, nondistended, soft. BS present. Extremities: Warm, dry. Family Services Specialist strength, shoulder flexion/extension, internal rotation, external rotation, ankle dorsiflexion/plantar flexion, hip flexion intact with 5/5 strength and symmetrical. Sensation to soft touch intact in fingers and toes bilaterally without asymmetry. PT and radial pulses intact without asymmetry. Results & Data Results & Data ([facility]) Vital Signs (Past 12 Hours) Vital Signs Temp Pulse Pulse Resp BP BP Pulse Ox 04/21/20 21:15 99 H 21 132/94 99 04/21/20 19:13 36.9 C 100 H 20 169/100 H 98 Code Status & VTE Plan VTE Prophylaxis Plan VTE Prophylaxis will be ordered: Yes Supervising Physician Co-Signing Physician Notes Attending addendum: I have physically seen this patient, have supervised the medical residents activities, and agree with the H&P unless as otherwise noted. Assessment and Plan: Syncope and collapse- Secondary to symptomatic anemia Symptomatic anemia secondary to presumptive upper GI bleed/moderate hiatal hernia- Hemoglobin 7.3 upon admission. Hemoglobin was 8.3 on 02/22/2020, and baseline is around 11.1. Patient has been using increased amount of NSAIDs over the past several months. NPO except essential medications Protonix 40 mg IV twice daily NSS + KCl 20 mEq at 100 mL's per hour H&H every 6 hours Zofran 4 mg IV every 6 hours as needed Ceftriaxone 1 g IV daily Consult gastroenterology Asthma continue usual home inhalers and montelukast. Duonebs every 2 hours when necessary. Anxiety- Continue Lexapro 20 mg daily Remaining orders and notations as noted Resident Activity Tracking Resident Involvement: Resident Care Provided Care Provided: Adult Hospital Medicine
[2020-04-21] MEDS ORDERED: SODIUM CHLORIDE 0.9% 1000ML 500 ML IV ONE (23:55)
[2020-04-21] MEDS ORDERED: CYCLOBENZAPRINE HCL 10 MG TAB PO PRN (23:55)
[2020-04-21] MEDS ORDERED: ALBUT/IPRATROP 3MG/0.5MG NEB 3 ML VIAL INH PRN (23:55)
[2020-04-22] MEDS ORDERED: FLUTICASONE/VILANTEROL 200/25MCG 14 PUFFS/INHALER INH PRN (00:15)
[2020-04-22] MEDS: NSS + 20MEQ KCL 20 MEQ/1,000 ML BAG IV SCH ×3 (00:29→15:24)
[2020-04-22] MEDS: FAMOTIDINE 20 MG in SYRINGE 3 ML IV SCH ×3 (00:35→21:21)
[2020-04-22] MEDS: PANTOprazole 40 MG in SYRINGE 0 ML IV SCH ×3 (00:35→21:21)
[2020-04-22 00:47] LABS: Ferritin 2.5 ng/ml (8-388)
[2020-04-22] MEDS: ACETAMINOPHEN 325 MG TAB PO PRN (01:04)
[2020-04-22 05:35] LABS: BUN Creatinine Ratio 19.7 (10-20); Blood Urea Nitrogen 15 mg/dl (7-18); Carbon Dioxide 24 mmol/L (21-32); Chloride 111 mmol/L (98-107); Creatinine Clr Calc Pharmacy 121.1 ml/min; Est GFR (African American) 112.9; Est GFR (Non-African American) 97.4; Glucose 88 mg/dl (70-99); Potassium 4.3 mmol/L (3.5-5.1); Sodium 140 mmol/L (136-145)
[2020-04-22 05:40] LABS: Hematocrit (blood only) 23.6 % (37-47); Hemoglobin 6.5 g/dL (12.0-16.0); Mean Corpuscular Hemoglobin 19.1 pg (25-34); Mean Corpuscular Hgb Conc 27.5 g/dL (32-36); Mean Corpuscular Volume 69.4 fL (80-100); Mean Platelet Volume 8.2 fL (7.4-10.4); Platelet Count 426 K/uL (130-400); RDW Coefficient of Variation 17.4 % (11.5-14.5); RDW Standard Deviation 44.4 fL (36.4-46.3)
[2020-04-22 05:42] LABS: Troponin I < 0.015 ng/ml (0-0.045)
[2020-04-22 05:43] LABS: Basophils # (auto) 0.03 K/uL (0-0.2); Basophils % (auto) 0.6 %; Eosinophils # (auto) 0.26 K/uL (0-0.5); Hypochromasia Present; Lymphocytes # (auto) 2.21 K/uL (1.2-3.4); Lymphocytes % (auto) 42.5 %; Monocytes # (auto) 0.36 K/uL (0.11-0.59); Monocytes % (auto) 6.9 %; Neutrophils # (auto) 2.34 K/uL (1.4-6.5)
[2020-04-22] MEDS ORDERED: SODIUM CHLORIDE 0.9% 250 ML IV PRN (05:43)
[2020-04-22] MEDS ORDERED: diphenhydrAMINE Capsule 25 MG CAP PO ONE (05:43)
[2020-04-22] MEDS ORDERED: ACETAMINOPHEN 500 MG TAB PO ONE (05:46)
--- NOTE | 2020-04-22 06:59 | CT Scan Report ---
CT head/brain wo con CLINICAL HISTORY: 39 years-old Female with TIMMONS. Acute headache TECHNIQUE: Multiple axial CT images of the head were obtained without contrast. A dose lowering tech nique was utilized adhering to the principles of ALARA. CT DOSE: 537.48 mGy.cm COMPARISON: Head CT 02/16/2007 FINDINGS: No acute intracranial hemorrhage, midline shift, intracranial mass, hydrocephalus, territorial ischem ia or abnormal extra-axial collection. The calvarium is intact. Mastoid air cells are clear. Mild mucosal thickening of the imaged ethmoid air cells. Soft tissues and imaged orbits are unremarkable. IMPRESSION: No acute intracranial abnormality. ACT 112: Negative or not required by law. The above report was generated using voice recognition software. It may contain grammatical, syntax o r spelling errors. Electronically signed by: Marco Padilla M.D. 04/22/2020 6:58 AM
--- NOTE | 2020-04-22 07:22 | CT Scan Report ---
CT angio chest PE protocol CT DOSE: 768.71 mGy.cm HISTORY: 39 years-old Female with +dd and cp. Acute midsternal chest pain TECHNIQUE: Multiple CTA images of the chest were obtained after the intravenous administration of 120 ml Optiray 320. Coronal and sagittal MIPS were obtained from the axial data set and were submitted for review. All measurements were obtained according to NASCET criteria. A dose lowering technique w as utilized adhering to the principles of ALARA. COMPARISON: Chest radiograph of same day, CTA chest 09/23/2013 FINDINGS: CTA: Heart is upper limits of normal in size. No pericardial effusion. No thoracic aortic aneurysm or diss ection. There is patency of the imaged great vessels. The pulmonary artery is opacified to the level of the proximal subsegmental branches and demonstrates no filling defects to suggest thromboembolic d isease. CT CHEST: Unremarkable thyroid. No adenopathy by CT size criteria. The inferior left lung base is partially out side the [id number]. No pneumothorax, pleural effusion, overt pulmonary edema or airspace consolid ation typical for pneumonia. Mild bilateral bronchial wall thickening is noted in addition to mild bi lateral mosaic attenuation of the lungs. Central airways appear patent. Moderate hiatal hernia with mild mid and distal esophageal wall thickening. Soft tissues and breast p arenchyma appear unremarkable. Right shoulder rotator cuff calcific tendinosis. IMPRESSION: 1. No evidence of pulmonary thromboembolic disease. 2. No pleural effusion, adenopathy or airspace consolidation. 3. Mild bronchial wall thickening suggests reactive airway disease versus bronchitis. Mild associated air trapping. 4. Moderate hiatal hernia. ACT 112: Negative or not required by law. The above report was generated using voice recognition software. It may contain grammatical, syntax o r spelling errors. Electronically signed by: Marco Padilla M.D. 04/22/2020 7:21 AM
[2020-04-22] MEDS: FERROUS SULFATE 325 MG TAB PO SCH ×2 (07:34→21:11)
[2020-04-22] MEDS: ESCITALOPRAM OXALATE 20 MG TAB PO SCH (07:35)
--- NOTE | 2020-04-22 09:27 | Gastrointestinal Consultation ---
Date of Consultation April 22, 2020 Assessment & Plan (1) GI bleed: (2) Chest pain: (3) Syncope: Diff dx: PUD vs AVM vs IBD vs malignancy vs other. 1. Remain NPO for now. 2. Stat COVID-19 LINUX DEVELOPER swab pre-op. 3. EGD with Dr. Lemons for further evaluation. 4. Continue IV blood resuscitation. 5. Maintain 2 large bore IVs. 6. Continue Pantoprazole 40 mg IV BID. 7. Continue Famotidine 20 mg IV BID. 8. Additional recommendations pending results of testing. Thank you for allowing us to participate in the care of this pleasant patient. If you have questions or concerns, please do not hesitate to contact us. Supervising Physician Co-Signing Physician Notes I personally evaluated the patient and agree with the findings as documented by MACY Gregorio Exam: abd: soft, nt, nd Proceed with EGD. risks/benefits and procedure discussed with patient, who agrees to proceed History of Present Illness Reason for Consultation: [facility] Requesting Physician: Dr. 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 At that time, due to reports of worsened symptoms of 6-MP and mesalamine, a trial of mesalamine alone was suggested. She then became lost to follow up but had stopped all therapy. Despite this, she states she was doing very well from an IBD standpoint. Denies having any abdominal pain, diarrhea, bloody or black stools. She has been noted, however, to have intermittent postprandial vomiting which occurs within 30 minutes of eating. She states there are no specific food triggers. In addition, she has been having hypotension and syncopal episodes for the past few months. Given her history, an outpatient colonoscopy was ordered by her PCP and is pending. She presented to the ER last night with complaints of chest pain, shortness of breath and syncope. On arrival, she was noted to be profoundly anemic with a H&H of 7.3/26.0. MCV 69.0. She is currently receiving IV blood products and have been stated on double dose PPI and H2RA IV. She endorses occasional NSAID use and alcohol 1-2 glasses of wine per day. No tobacco. No family history of IBD but father with colon cancer. Allergies Allergy/AdvReac Type Severity Reaction Status Date / Time Cephalosporins Allergy Severe anaphylaxis Verified 04/21/20 23:54 Cipro Allergy Intermediate FACIAL Verified 08/31/16 14:37 SWELLING/HIVES ciprofloxacin Allergy MO FACIAL Verified 04/21/20 20:14 SWELLING/HIVES cat dander Allergy Unknown Verified 04/21/20 20:14 dog dander Allergy Unknown Verified 04/21/20 20:14 house dust Allergy Unknown Verified 04/21/20 20:14 mold Allergy Unknown Verified 04/21/20 20:14 pollen extracts Allergy Unknown Verified 04/21/20 20:14 wheat Allergy Unknown Verified 04/21/20 20:14 moxifloxacin AdvReac [place] VOMITING Verified 04/21/20 20:14 Home Medications Home Medications Medication Instructions Recorded Confirmed Type ipratropium-albuterol 3 ml INHALATION Q4H PRN 03/06/18 04/21/20 History montelukast 10 mg tablet 10 mg PO PM #90 tab 01/19/19 04/21/20 Rx famotidine 20 mg tablet 20 mg PO BID 42 Days #84 tab 04/14/19 04/21/20 Rx fluticasone 500 mcg-salmeterol 50 1 puffs INHALATION BID PRN ea 07/11/19 04/21/20 History mcg/dose blistr powdr for inhalation albuterol sulfate 90 mcg/actuation 1 - 2 puff INHALATION Q6H PRN #6.7 09/29/19 04/21/20 Rx aerosol inhaler gm inhaler,assist devices,access #1 ea 09/29/19 04/21/20 Rx pantoprazole 40 mg tablet,delayed 40 mg PO BID #180 tab 01/25/20 04/21/20 Rx release escitalopram oxalate 20 mg tablet 20 mg PO DAILY #30 tab 02/14/20 04/21/20 Rx ferrous sulfate 325 mg (65 mg 325 mg PO BID #60 tab 02/23/20 04/21/20 Rx iron) tablet,delayed release cyclobenzaprine 5 mg tablet 5 mg PO DAILY PRN #30 tab 03/27/20 04/21/20 Rx sodium,potassium,mag sulfates 17.5 177 ml PO .COMPLEX #354 ml 04/15/20 04/21/20 Rx gram-3.13 gram-1.6 gram oral soln fluticasone propionate [Flonase 1 spray INTRANASAL QAM PRN 04/21/20 04/21/20 History Allergy Relief] Patient History Medical History Asthmatic bronchitis delivery delivered Depression Dysfunctional uterine bleeding (11/15/11) Pneumonia Solitary thyroid nodule Surgical History H/O section H/O oophorectomy Left H/O: hysterectomy History of appendectomy Hx of tubal ligation [place] teeth removed Family History Mother Breast cancer Colon cancer Father COPD (chronic obstructive pulmonary disease) Colon cancer Crohn's disease Other Arthritis Asthma Atypical chest pain Cancer Chronic cough Hypertension Kidney stone Migraine Denies family history of Ovarian cancer Prostate cancer Myocardial infarction Social History Smoking Status: Never smoker Hx Alcohol Use: Yes Alcohol type: wine Alcohol Intake Frequency: Monthly or Less Hx Substance Use: No Preferred Language: Indonesian Communication Ability: Effective Visual Impairment: No Limitations Hearing Ability: Normal Link Wire Fabric Machine Operator Required: No Beliefs That Will Affect Care: None marital status: Current Living Situation: Spouse and Family Current Living Situation Comment: and 2 children current occupational status: employed current occupation: works at skilled nursing Feels Safe at Home: Yes Safety Concerns: Feels Safe At This Time Childhood Exposure to Second-Hand Smoke: Yes Dental Care, Regularly: Yes Physical Activity Frequency: 3-4 Times per Week Seatbelt Use: always Sunscreen Use: Yes Do you think of yourself as: straight/heterosexual Assistive Devices: None Review of Systems Review of Systems: All systems reviewed & are unremarkable except as noted in HPI & below Physical Exam Constitutional: WD/WN, vitals as above Eyes: EOM intact bilaterally Neck: normal appearance Respiratory: normal respiratory effort, lungs clear to auscultation Cardiovascular: Rate/Rhythm: regular rate and regular rhythm Heart Sounds: no gallop and no murmur Gastrointestinal (Abdomen): normal bowel sounds, soft, nontender, no hepatosplenomegaly Inspection/Auscultation: abdomen not distended Musculoskeletal: Extremities: no cyanosis no lower extremity edema Skin: no rashes, warm and dry + pallor Neurologic: moves all extremities Psychiatric: A+Ox3, euthymic affect Results & Data ([facility]) Vital Signs (Past 12 Hours) Vital Signs Temp Pulse Pulse Resp BP BP BP 04/22/20 09:12 36.8 C 76 22 118/82 04/22/20 08:24 36.8 C 67 16 118/80 04/22/20 08:09 36.8 C 76 18 112/74 04/22/20 08:06 36.6 C 74 18 109/72 04/22/20 07:50 36.4 C L 93 H 18 125/82 04/22/20 07:43 36.4 C L 78 16 111/49 L 04/22/20 07:23 84 04/22/20 04:35 76 04/22/20 03:20 36.7 C 78 20 129/81 04/21/20 23:55 36.8 C 87 20 148/67 H 04/21/20 23:35 127/72 04/21/20 23:30 95 H 19 04/21/20 23:00 94 H 22 Pulse Ox 04/22/20 09:12 100 04/22/20 08:24 99 04/22/20 08:09 99 04/22/20 08:06 98 04/22/20 07:50 99 04/22/20 07:43 97 04/22/20 07:23 04/22/20 04:35 04/22/20 03:20 99 04/21/20 23:55 99 04/21/20 23:35 04/21/20 23:30 97 04/21/20 23:00 97 Laboratory Results Abnormal lab results 04/21/20 04/21/20 04/21/20 Range/Units 20:10 20:10 20:10 RBC 3.77 L (4.2-5.4) M/uL Hgb 7.3 L (12.0-16.0) g/dL Hct 26.0 L (37-47) % MCV 69.0 L (80-100) fL MCH 19.4 L (25-34) pg MCHC 28.1 L (32-36) g/dL RDW Coeff of [place] 17.5 H (11.5-14.5) % Plt Count 531 H (130-400) K/uL D-Dimer 1080 H* (0-500) ug/L FEU Chloride (98-107) mmol/L Calcium (8.5-10.1) mg/dl Iron (35-150) mcg/dl Ferritin (8-388) ng/ml Globulin 4.3 H (2.5-4.0) gm/dl Albumin/Globulin Ratio 0.8 L (0.9-2) Crossmatch 04/22/20 04/22/20 04/22/20 Range/Units 00:12 00:12 05:04 RBC 3.40 L (4.2-5.4) M/uL Hgb 6.5 L* (12.0-16.0) g/dL Hct 23.6 L (37-47) % MCV 69.4 L (80-100) fL MCH 19.1 L (25-34) pg MCHC 27.5 L (32-36) g/dL RDW Coeff of [place] 17.4 H (11.5-14.5) % Plt Count 426 H (130-400) K/uL D-Dimer (0-500) ug/L FEU Chloride (98-107) mmol/L Calcium (8.5-10.1) mg/dl Iron 12 L (35-150) mcg/dl Ferritin 2.5 L (8-388) ng/ml Globulin (2.5-4.0) gm/dl Albumin/Globulin Ratio (0.9-2) Crossmatch See Detail 04/22/20 Range/Units 05:04 RBC (4.2-5.4) M/uL Hgb (12.0-16.0) g/dL Hct (37-47) % MCV (80-100) fL MCH (25-34) pg MCHC (32-36) g/dL RDW Coeff of [place] (11.5-14.5) % Plt Count (130-400) K/uL D-Dimer (0-500) ug/L FEU Chloride 111 H (98-107) mmol/L Calcium 8.0 L (8.5-10.1) mg/dl Iron (35-150) mcg/dl Ferritin (8-388) ng/ml Globulin (2.5-4.0) gm/dl Albumin/Globulin Ratio (0.9-2) Crossmatch PG Care Time/CCT Total # of Minutes Spent Total Time Spent with Patient: Total time spent is greater than 50% in coordination of care (as documented) at patient's floor/unit and/or counseling patient: Coding Level of Care Code 19430 Inpt Consult Level 4 Diagnoses GI bleed K92.2 GI bleed type/associated pathology: unspecified gastrointestinal hemorrhage type Chest pain R07.9 Syncope R55 Syncope type: unspecified (1) GI bleed GI bleed type/associated pathology: unspecified gastrointestinal hemorrhage type Qualified Code(s): K92.2 - Gastrointestinal hemorrhage, unspecified (2) Syncope Syncope type: unspecified Qualified Code(s): R55 - Syncope and collapse
--- NOTE | 2020-04-22 09:44 | XRay Report ---
XR chest 1V portable HISTORY: 39 years-old Female SOB with transfusion acute shortness of breath COMPARISON: CTA of the chest and chest radiograph 04/21/2020. TECHNIQUE: Portable AP view of the chest FINDINGS: Cardiomediastinal and hilar silhouettes are within normal limits. No pneumothorax, pleural effusion, airspace consolidation or overt pulmonary edema. Hiatal hernia. Bones appear grossly intact. Right sh oulder rotator cuff calcific tendinosis. IMPRESSION: No acute process. ACT 112: Negative or not required by law. The above report was generated using voice recognition software. It may contain grammatical, syntax o r spelling errors. Electronically signed by: Marco Padilla M.D. 04/22/2020 9:42 AM
--- NOTE | 2020-04-22 10:13 | Electrocardiogram Report ---
Test Reason : Blood Pressure : / mmHG Vent. Rate : 081 BPM Atrial Rate : 081 BPM P-R Int : 176 ms QRS Dur : 088 ms QT Int : 390 ms P-R-T Axes : 021 -15 -01 degrees QTc Int : 453 ms Normal sinus rhythm Normal ECG When compared with ECG of 23-SEP-2013 12:20, T wave amplitude has decreased in Anterior leads Confirmed by Chetan Argueta ([id number]) on 04/22/2020 10:12:31 AM Referred By: REFERRED SELF Confirmed By:Chetan Argueta
[2020-04-22 10:15] LABS: Blood Urine Negative (Negative)
--- NOTE | 2020-04-22 11:56 | XCELERA ---
[id number]
--- NOTE | 2020-04-22 14:47 | Anesthesiology Consultation ---
Date of Service April 22, 2020 Assessment & Plan (1) Encounter for pre-operative examination: Chart Review Chart Review: Acceptable Risk for Surgery and Patient NOT seen in Pre Admission Testing Consults Requested none ASA ASA2 Proposed Anesthesia Anesthesia Type: MAC Risk / Benefits Reviewed With: PT / POA / Parent / Guardian, Accepts Plan and Informed Consent Obtained Additional Comments: patient was transfused on the floor after this morning Hb of 6.5 History Surgery Operation Date: 04/22/20 18:00 Proposed Procedures p Esophagogastroduodenoscopy Dr. Vesta Lemons MD Height/Weight Height: 5 ft 2 in Weight: 121.8 kg Allergies Allergy/AdvReac Type Severity Reaction Status Date / Time Cephalosporins Allergy Severe anaphylaxis Verified 04/21/20 23:54 Cipro Allergy Intermediate FACIAL Verified 08/31/16 14:37 SWELLING/HIVES ciprofloxacin Allergy MO FACIAL Verified 04/21/20 20:14 SWELLING/HIVES cat dander Allergy Unknown Verified 04/21/20 20:14 dog dander Allergy Unknown Verified 04/21/20 20:14 house dust Allergy Unknown Verified 04/21/20 20:14 mold Allergy Unknown Verified 04/21/20 20:14 pollen extracts Allergy Unknown Verified 04/21/20 20:14 wheat Allergy Unknown Verified 04/21/20 20:14 moxifloxacin AdvReac NC VOMITING Verified 04/21/20 20:14 Medications Home Medications Medication Instructions Recorded Confirmed Last Taken ipratropium-albuterol 3 ml INHALATION Q4H PRN 03/06/18 04/21/20 Unknown montelukast 10 mg tablet 10 mg PO PM #90 tab 01/19/19 04/21/20 Unknown famotidine 20 mg tablet 20 mg PO BID 42 Days #84 tab 04/14/19 04/21/20 Unknown fluticasone 500 mcg-salmeterol 50 1 puffs INHALATION BID PRN ea 07/11/19 04/21/20 Unknown mcg/dose blistr powdr for inhalation albuterol sulfate 90 mcg/actuation 1 - 2 puff INHALATION Q6H PRN #6.7 09/29/19 04/21/20 Unknown aerosol inhaler gm inhaler,assist devices,access #1 ea 09/29/19 04/21/20 Unknown pantoprazole 40 mg tablet,delayed 40 mg PO BID #180 tab 01/25/20 04/21/20 Unknown release escitalopram oxalate 20 mg tablet 20 mg PO DAILY #30 tab 02/14/20 04/21/20 Unknown ferrous sulfate 325 mg (65 mg 325 mg PO BID #60 tab 02/23/20 04/21/20 Unknown iron) tablet,delayed release cyclobenzaprine 5 mg tablet 5 mg PO DAILY PRN #30 tab 03/27/20 04/21/20 Unknown sodium,potassium,mag sulfates 17.5 177 ml PO .COMPLEX #354 ml 04/15/20 04/21/20 Unknown gram-3.13 gram-1.6 gram oral soln fluticasone propionate [Flonase 1 spray INTRANASAL QAM PRN 04/21/20 04/21/20 Unknown Allergy Relief] Active Medications Generic Name Dose Route Start Last Admin Trade Name Freq PRN Reason Stop Dose Admin Acetaminophen 650 mg 04/21/20 23:55 04/22/20 01:04 Acetaminophen 325 Mg Tab PO 05/21/20 23:54 650 mg Q4H PRN Administration Pain or Fever Escitalopram Oxalate 20 mg 04/22/20 09:00 04/22/20 07:35 Escitalopram Oxalate 20 Mg Tab PO 05/22/20 08:59 20 mg DAILY HELEN Administration Ferrous Sulfate 325 mg 04/22/20 09:00 04/22/20 07:34 Ferrous Sulfate 325 Mg Tab PO 05/22/20 08:59 Not Given BID HELEN Potassium Chloride/Sodium Chloride 20 meq in 1,000 mls @ 120 mls/hr 04/21/20 23:55 04/22/20 13:42 Normal Saline W/20 Meq Kcl IV 05/21/20 23:54 120 mls/hr .Q8H20M HELEN Infusion Pantoprazole Sodium 40 mg/ 10 mls @ 5 mls/min 04/21/20 23:55 04/22/20 07:35 Syringe IV 05/21/20 23:54 5 mls/min BID HELEN Administration Famotidine 20 mg/ Syringe 5 mls @ 2.5 mls/min 04/21/20 23:55 04/22/20 07:35 IV 05/21/20 23:54 2.5 mls/min BID HELEN Administration NPO Date Last Intake of Fluids: 04/22/20 Time Last Intake of Fluids: 14:30 Last Intake of Fluids Comment: sips and chips till patient arrived to endoscopy unit Date Last Intake of Solids: 04/21/20 Time Last Intake of Solids: 18:00 Past Medical History Medical History Asthmatic bronchitis delivery delivered Depression Dysfunctional uterine bleeding (11/15/11) Pneumonia Solitary thyroid nodule Exercise / Class Metabolic Activity II 4-5 Yardwork/Stairs/Walk up hill Past Family History Family History Mother Breast cancer Colon cancer Father COPD (chronic obstructive pulmonary disease) Colon cancer Crohn's disease Other Arthritis Asthma Atypical chest pain Cancer Chronic cough Hypertension Kidney stone Migraine Denies family history of Ovarian cancer Prostate cancer Myocardial infarction Past Surgical History Surgical History H/O section H/O oophorectomy Left H/O: hysterectomy History of appendectomy Hx of tubal ligation [place] teeth removed Past Anesthesia History No Hx of Anesthesia Complications and No Family Hx of Anesthesia Complications History of PONV No Hx of PONV and No Hx of Motion Sickness Social History Smoking Status: Never smoker Hx Alcohol Use: Yes Alcohol type: wine alcohol intake frequency: holidays/special occasions only Hx Substance Use: No Physical Exam Vital Signs Last Vital Signs Temp 36.8 C 04/22/20 14:35 Pulse 75 04/22/20 14:35 Resp 18 04/22/20 14:35 BP 131/69 04/22/20 14:35 Pulse Ox 98 04/22/20 14:35 ENMT Mouth: no dentition abnormality Thyromental Distance: > or= 3.5 Finger Breadths Mallampati Class: II Neck normal visual inspection Respiratory normal respiratory effort Auscultation: lungs clear to auscultation bilaterally Cardiovascular Rate/Rhythm: regular rate and regular rhythm Psychiatric Orientation: alert Testing Laboratory Results 04/22/20 05:04 04/22/20 05:04 PT 10.2 Seconds (9.0-12.0) 04/21/20 20:10 INR 1.0 (0.9-1.1) 04/21/20 20:10 APTT 23.4 Seconds (21.0-31.0) 04/21/20 20:10 Blood Type O Positive 04/22/20 00:12 Antibody Screen NEGATIVE 04/22/20 00:12
--- NOTE | 2020-04-22 15:19 | GI REPORT ---
Patient Name: Estefanía Jeronimo Procedure Date: 04/22/2020 2:46 PM Date of : 1980 Admit Type: Inpatient Age: 39 Gender: Female Attending MD: Mohamud Lemons MD Procedure: Upper GI endoscopy Providers: Mohamud Lemons MD Referring MD: Chrystal Rick Indications: Unexplained iron deficiency anemia Medicines: Monitored Anesthesia Care Complications: No immediate complications. Estimated blood loss: None. Estimated Blood Loss: Estimated blood loss: none. Procedure: Pre-Anesthesia Assessment: - Prior Anticoagulants: The patient has taken no previous anticoagulant or antiplatelet agents. - ASA Grade Assessment: II - A patient with mild systemic disease. After obtaining informed consent, the endoscope was passed under direct vision. Throughout the procedure, the patient's blood pressure, pulse, and oxygen saturations were monitored continuously. The Endoscope was introduced through the mouth, and advanced to the second part of duodenum. The upper GI endoscopy was accomplished without difficulty. The patient tolerated the procedure well. Findings: LA Grade B (one or more mucosal breaks greater than 5 mm, not extending between the tops of two mucosal folds) esophagitis with no bleeding was found. Biopsies were taken with a cold forceps for histology. Estimated blood loss: none. A medium-sized hiatal hernia was present. A single 8 mm sessile polyp with no stigmata of recent bleeding was found in the stomach. The polyp was removed with a cold snare. Resection and retrieval were complete. Estimated blood loss: none. Diffuse moderate inflammation characterized by erosions and erythema was found in the stomach. Biopsies were taken with a cold forceps for Helicobacter pylori testing. Estimated blood loss: none. The duodenal bulb and second portion of the duodenum were normal. Impression: - LA Grade B esophagitis. Biopsied. - Medium-sized hiatal hernia. - A single gastric polyp. Resected and retrieved. - Gastritis. Biopsied. - Normal duodenal bulb and second portion of the duodenum. Recommendation: - Return patient to hospital blood for ongoing care. - Clear liquid diet today. - Await pathology results. -prep with golytely/nulytely tonight, colonoscopy tomorrow to further evaluate anemia. Mohamud Lemons MD 04/22/2020 3:19:28 PM This report has been signed electronically. Note Initiated On: 04/22/2020 2:46 PM Number of Addenda: 0 I attest to the content of the Intraoperative Record and orders documented therein, exceptions below {[id number]}
--- NOTE | 2020-04-22 16:18 | Anesthesiology Progress Note ---
Date of Service April 22, 2020 Anesthesia Post Procedure Vital Signs Vital Signs: Temp Pulse Pulse Resp BP BP BP 04/22/20 16:14 36.6 C 61 20 113/75 04/22/20 15:49 68 17 121/94 04/22/20 15:33 75 17 127/77 04/22/20 15:19 88 18 103/71 04/22/20 15:07 72 04/22/20 14:35 36.8 C 75 18 131/69 04/22/20 13:41 36.5 C 65 18 113/75 04/22/20 11:48 36.7 C 79 18 127/85 04/22/20 11:18 36.7 C 76 20 116/75 04/22/20 11:03 36.4 C L 86 20 129/79 04/22/20 10:46 36.7 C 79 20 124/83 04/22/20 10:00 36.7 C 72 18 116/82 04/22/20 09:12 36.8 C 76 22 118/82 04/22/20 08:24 36.8 C 67 16 118/80 04/22/20 08:09 36.8 C 76 18 112/74 04/22/20 08:06 36.6 C 74 18 109/72 04/22/20 07:50 36.4 C L 93 H 18 125/82 04/22/20 07:43 36.4 C L 78 16 111/49 L 04/22/20 07:23 84 04/22/20 04:35 76 04/22/20 03:20 36.7 C 78 20 129/81 04/21/20 23:55 36.8 C 87 20 148/67 H 04/21/20 23:35 127/72 04/21/20 23:30 95 H 19 04/21/20 23:00 94 H 22 04/21/20 21:15 99 H 21 132/94 04/21/20 19:13 36.9 C 100 H 20 169/100 H Pulse Ox 04/22/20 16:14 100 04/22/20 15:49 100 04/22/20 15:33 100 04/22/20 15:19 98 04/22/20 15:07 04/22/20 14:35 98 04/22/20 13:41 97 04/22/20 11:48 98 04/22/20 11:18 95 04/22/20 11:03 94 04/22/20 10:46 98 04/22/20 10:00 99 04/22/20 09:12 100 04/22/20 08:24 99 04/22/20 08:09 99 04/22/20 08:06 98 04/22/20 07:50 99 04/22/20 07:43 97 04/22/20 07:23 04/22/20 04:35 04/22/20 03:20 99 04/21/20 23:55 99 04/21/20 23:35 04/21/20 23:30 97 04/21/20 23:00 97 04/21/20 21:15 99 04/21/20 19:13 98 Pain Intensity Chest: Pain Intensity: 6 Head: Pain Intensity: 6 Transfer of Care Handoff Completed per policy Notes Mental Status: alert / awake / arousable and participated in evaluation Patient Amnestic to Procedure: Yes Nausea / Vomiting: adequately controlled Pain: adequately controlled Airway Patency, RR, SpO2: stable & adequate BP & HR: stable & adequate Hydration State: stable & adequate Anesthetic Complications: no major complications apparent and Pt Satisfied with anesthetic care
[2020-04-22 16:27] LABS: Hematocrit (blood only) 28.2 % (37-47); Hemoglobin 8.4 g/dL (12.0-16.0)
--- NOTE | 2020-04-22 16:41 | Hospitalist Progress Note ---
Date of Service April 22, 2020 Assessment & Plan (1) Chest pain: Likely related to sx anemia EKG without ischemic findings, trop x3 D-dimer elevated at 1080, unclear etiology. CTA shows no PE, no effusion/consolidation consistent with pneumonia ECHO with EF 55-60, neg for valvular issues (2) Syncope: (1) Syncope: Estefanía Faith is a 39-year-old female with a past medical history of asthma, reflux esophagitis with hiatal hernia, concern for Crohn's versus IBD not on steroids or Biologics, and progressive lightheadedness who presents to the emergency department following an episode of syncope. Syncope suspect 2/2 anemia of chronic GI bleed Patient with syncopal episode, lasted less than 1 minute, did not strike her head. No tongue biting, does not appear consistent with seizure by history. CThead: No acute findings Hemoglobin decreased to 7.2 on admission, was 8.3 2 months ago Pt has ongoing outpt work-up and was to have c-scope this Wednesday. Hemoccult positive in ED. Microcytosis 69fL Iron studies with low iron and high normal TIBC Type and screen ordered, blood consent completed. 2 units PRBC ordered. Pt with chest pain and SOB with initial bag, sx similar to prior CP and SOB CXR WNL, VSS Tolerated 2nd unit without issue. Hb s/p 2nd unit was 8.4 (has received roughly 1.5 units), will hold on further transfusion GI c/s: EGD 04/22 with esophagitis, gastritis, polyp and bx pending Planning for c-scope tomorrow Continue iron supplementation, patient may benefit from IV iron infusion during admission as she has not tolerated PO iron as outpt Start venofer 200mg IV x5 doses, first dose 04/22 EKG shows no acute changes and no signs of ischemia Cardiac exam reveals a systolic murmur most likely flow murmur, given episode of sudden syncope x2 we will proceed with TTE (3) GI bleed: Microcytosis and anemia as above Protonix 40 mg twice daily IV push Famotidine 20 mg twice daily IV push GI consulted (4) Asthma: Stable, continue home meds Continue home inhalers Continue montelukast 10 mg daily DuoNebs as needed (5) Chronic reflux esophagitis: As above (6) Anxiety: Continue Lexapro 20 mg daily (7) DVT prophylaxis: SCDs given above Patient has a pending outpatient Covid test which was ordered as preop by gastroenterology. She has a history of allergy with cough when exposed to dust or allergens, but otherwise has not had any cough, shortness of breath, fever, chills, change in taste or smell, or diarrhea. She denies any Covid exposures prior to admission. Admission and Anticipated Discharge Date Admission Date: April 21, 2020 Results & Data Results & Data ([facility]) Vital Signs (Past 12 Hours) Vital Signs Temp Pulse Pulse Resp BP BP Pulse Ox 04/22/20 16:14 36.6 C 61 20 113/75 100 04/22/20 15:49 68 17 121/94 100 04/22/20 15:33 75 17 127/77 100 04/22/20 15:19 88 18 103/71 98 04/22/20 15:07 72 04/22/20 14:35 36.8 C 75 18 131/69 98 04/22/20 13:41 36.5 C 65 18 113/75 97 04/22/20 11:48 36.7 C 79 18 127/85 98 04/22/20 11:18 36.7 C 76 20 116/75 95 04/22/20 11:03 36.4 C L 86 20 129/79 94 04/22/20 10:46 36.7 C 79 20 124/83 98 04/22/20 10:00 36.7 C 72 18 116/82 99 04/22/20 09:12 36.8 C 76 22 118/82 100 04/22/20 08:24 36.8 C 67 16 118/80 99 04/22/20 08:09 36.8 C 76 18 112/74 99 04/22/20 08:06 36.6 C 74 18 109/72 98 04/22/20 07:50 36.4 C L 93 H 18 125/82 99 04/22/20 07:43 36.4 C L 78 16 111/49 L 97 04/22/20 07:23 84 PG Care Time/CCT Total # of Minutes Spent Total Time Spent with Patient: Total time spent is greater than 50% in coordination of care (as documented) at patient's floor/unit and/or counseling patient: Coding Level of Care Code 70932 Subseq Hosp Care Lvl 3 Diagnoses Chest pain R07.9 Syncope R55 Syncope type: unspecified GI bleed K92.2 GI bleed type/associated pathology: unspecified gastrointestinal hemorrhage type Asthma J45.909 Chronic reflux esophagitis K21.0 Anxiety F41.9 DVT prophylaxis Z29.9 (1) GI bleed GI bleed type/associated pathology: unspecified gastrointestinal hemorrhage type Qualified Code(s): K92.2 - Gastrointestinal hemorrhage, unspecified (2) Syncope Syncope type: unspecified Qualified Code(s): R55 - Syncope and collapse
[2020-04-22] MEDS ORDERED: ONDANSETRON INJ 2 MG/ML 2 ML VIAL IV PRN (18:03)
[2020-04-22] MEDS: IRON SUCROSE 200 MG in 0.9 % SODIUM CHLORIDE 100 ML IV SCH (18:44)
[2020-04-22] MEDS: LAVAGE SOLUTION 4000ML PO SCH ×2 (19:30→19:40)
--- NOTE | 2020-04-22 19:52 | Billing Data ---
Date of Service April 22, 2020 Coding Level of Care Code 92852 Initial Inpt Care Lvl 3
[2020-04-22] MEDS: MONTELUKAST SODIUM 10 MG TABLET PO SCH (21:12)
[2020-04-23] MEDS: NSS + 20MEQ KCL 20 MEQ/1,000 ML BAG IV SCH ×3 (02:22→20:15)
[2020-04-23] MEDS: PANTOprazole 40 MG in SYRINGE 0 ML IV SCH ×2 (08:52→21:45)
[2020-04-23] MEDS: FAMOTIDINE 20 MG in SYRINGE 3 ML IV SCH ×2 (08:52→21:54)
[2020-04-23 09:20] LABS: Basophils # (auto) 0.02 K/uL (0-0.2); Basophils % (auto) 0.3 %; Eosinophils # (auto) 0.18 K/uL (0-0.5); Eosinophils % (auto) 3.1 %; Hemoglobin 8.4 g/dL (12.0-16.0); Immature Granulocytes # (auto) 0.01 K/uL (0.00-0.02); Immature Granulocytes % (auto) 0.2 %; Lymphocytes % (auto) 20.4 %; Mean Corpuscular Hemoglobin 20.7 pg (25-34); Mean Corpuscular Volume 71.6 fL (80-100); Monocytes # (auto) 0.37 K/uL (0.11-0.59); Monocytes % (auto) 6.3 %; Neutrophils # (auto) 4.09 K/uL (1.4-6.5); Neutrophils % (auto) 69.7 %; Platelet Count 480 K/uL (130-400); RDW Coefficient of Variation 19.1 % (11.5-14.5); RDW Standard Deviation 49.1 fL (36.4-46.3); Red Blood Count 4.05 M/uL (4.2-5.4); White Blood Count 5.87 K/uL (4.8-10.8)
[2020-04-23] MEDS: ESCITALOPRAM OXALATE 20 MG TAB PO SCH (09:48)
[2020-04-23] MEDS: FERROUS SULFATE 325 MG TAB PO SCH ×2 (09:48→21:44)
[2020-04-23 09:49] LABS: Hypochromasia Present; Microcytosis Present
[2020-04-23] MEDS ORDERED: POLYETHYLENE (MIRALAX) 17 GM PACK PO SCH ×2 (10:00→18:00)
--- NOTE | 2020-04-23 10:05 | Gastroenterology Progress Note ---
Date of Service April 23, 2020 Assessment & Plan (1) GI bleed: (2) Chest pain: (3) Syncope: Diff dx: PUD vs AVM vs IBD vs malignancy vs other. No findings on EGD to explain anemia. 1. Due to poor preparation, colonoscopy for today was cancelled. 2. Continue clear liquid diet today. 3. MiraLAX/Gatorade preparation this evening. 4. Colonoscopy with Dr. Garcia tomorrow. 5. Maintain 2 large bore IVs. 6. Continue Pantoprazole 40 mg IV BID. 7. Continue Famotidine 20 mg IV BID. 8. Additional recommendations pending results of testing. Thank you for allowing us to participate in the care of this pleasant patient. If you have questions or concerns, please do not hesitate to contact us. Admission and Anticipated Discharge Date Admission Date: April 21, 2020 Subjective Patient did not tolerated Golytely bowel preparation last evening due to reports of intolerance to taste. She denies any abdominal pain, n/v, or overt GIB sx. H&H has improved to 8.4/29.0. Continues twice daily PPI and H2RA. Review of Systems Review of Systems: All systems reviewed & are unremarkable except as noted in HPI & below Physical Exam Constitutional: WD/WN, vitals as above Respiratory: normal respiratory effort, lungs clear to auscultation Cardiovascular: RRR, no murmur, no edema Gastrointestinal (Abdomen): normal bowel sounds, soft, nontender, no hepatosplenomegaly Psychiatric: A+Ox3, euthymic affect Results & Data Results & Data ([facility]) Vital Signs (Past 12 Hours) Vital Signs Temp Pulse Pulse Resp BP Pulse Ox 04/23/20 07:43 36.4 C L 70 20 119/78 97 04/23/20 07:41 70 04/23/20 03:59 36.6 C 80 20 121/74 96 04/23/20 01:28 68 04/22/20 23:20 36.4 C L 76 20 138/80 98 Laboratory Results Abnormal lab results 04/22/20 04/22/20 04/23/20 Range/Units 00:12 16:18 08:43 RBC 4.05 L (4.2-5.4) M/uL Hgb 8.4 L 8.4 L (12.0-16.0) g/dL Hct 28.2 L 29.0 L (37-47) % MCV 71.6 L (80-100) fL MCH 20.7 L (25-34) pg MCHC 29.0 L (32-36) g/dL RDW Std Deviation 49.1 H (36.4-46.3) fL RDW Coeff of [place] 19.1 H (11.5-14.5) % Plt Count 480 H (130-400) K/uL Crossmatch See Detail PG Care Time/CCT Total # of Minutes Spent Total Time Spent with Patient: Total time spent is greater than 50% in coordination of care (as documented) at patient's floor/unit and/or counseling patient: Coding Level of Care Code 16414 Subseq Hosp Care Lvl 3 Diagnoses GI bleed K92.2 GI bleed type/associated pathology: unspecified gastrointestinal hemorrhage type Chest pain R07.9 Syncope R55 Syncope type: unspecified (1) GI bleed GI bleed type/associated pathology: unspecified gastrointestinal hemorrhage type Qualified Code(s): K92.2 - Gastrointestinal hemorrhage, unspecified (2) Syncope Syncope type: unspecified Qualified Code(s): R55 - Syncope and collapse
[2020-04-23] MEDS: ACETAMINOPHEN 325 MG TAB PO PRN ×2 (13:24→21:44)
[2020-04-23] MEDS ORDERED: bisacodyL 5 MG TABEC PO ONE (16:00)
--- NOTE | 2020-04-23 17:23 | Hospitalist Progress Note ---
Date of Service April 23, 2020 Assessment & Plan (1) Syncope: (1) Syncope: Estefanía Faith is a 39-year-old female with a past medical history of asthma, reflux esophagitis with hiatal hernia, concern for Crohn's versus IBD not on steroids or Biologics, and progressive lightheadedness who presents to the emergency department following an episode of syncope. Syncope suspect 2/2 anemia of chronic GI bleed Patient with syncopal episode, lasted less than 1 minute, did not strike her head. No tongue biting, does not appear consistent with seizure by history. CThead: No acute findings Hemoglobin decreased to 7.2 on admission, was 8.3 2 months ago Pt has ongoing outpt work-up and was to have c-scope this Wednesday. Hemoccult positive in ED. Microcytosis 69fL Iron studies with low iron and high normal TIBC Type and screen ordered, blood consent completed. 2 units PRBC ordered. Pt with chest pain and SOB with initial bag, sx similar to prior CP and SOB CXR WNL, VSS Tolerated 2nd unit without issue. Hb s/p 2nd unit was 8.4 (has received roughly 1.5 units), will hold on further transfusion GI c/s: EGD 04/22 with esophagitis, gastritis, polyp and bx pending Planning for c-scope tomorrow Continue iron supplementation, patient may benefit from IV iron infusion during admission as she has not tolerated PO iron as outpt Start venofer 200mg IV x5 doses, first dose 04/22 EKG shows no acute changes and no signs of ischemia Cardiac exam reveals a systolic murmur most likely flow murmur, given episode of sudden syncope x2 we will proceed with TTE Awaiting for colonscopy. This will be done on 04/24/20 (2) Anemia: hemoglobin is stable. (3) Chronic reflux esophagitis: As above (4) Allergic rhinitis: (5) Asthma: Stable, continue home meds Continue home inhalers Continue montelukast 10 mg daily DuoNebs as needed (6) Chronic head pain: NSAIDs likely cause of pain. will monitor. may need to place on preventative meds as she has headaches 2-3 times a week. Admission and Anticipated Discharge Date Admission Date: April 21, 2020 Subjective Patient is a pleasant 39 yo female who complains of chornic heaComplaining of headahce Review of Systems Review of Systems: All systems reviewed & are unremarkable except as noted in HPI & below Physical Exam Constitutional: WD/WN, vitals as above Eyes: PERRL, conjunctivae normal, anicteric sclerae ENMT: external ear and nose normal, oropharynx normal Neck: trachea midline, no thyromegaly Respiratory: normal respiratory effort, lungs clear to auscultation Cardiovascular: RRR, no murmur, no edema Gastrointestinal (Abdomen): normal bowel sounds, soft, nontender, no hepatosplenomegaly Musculoskeletal: no cyanosis or clubbing, extremities motor strength 5/5 Skin: no rashes, warm and dry Neurologic: PERRL, EOMI, accommodation nl, no face palsy, no dysarthria Psychiatric: A+Ox3, euthymic affect Results & Data Results & Data ([facility]) Vital Signs (Past 12 Hours) Vital Signs Temp Pulse Pulse Resp BP Pulse Ox 04/23/20 15:45 37.2 C 74 20 115/77 98 04/23/20 15:00 73 04/23/20 11:29 36.9 C 79 20 125/89 98 04/23/20 07:43 36.4 C L 70 20 119/78 97 04/23/20 07:41 70 PG Care Time/CCT Total # of Minutes Spent Total Time Spent with Patient: Total time spent is greater than 50% in coordination of care (as documented) at patient's floor/unit and/or counseling patient: Coding Level of Care Code 67119 Subseq Hosp Care Lvl 3 Diagnoses Syncope R55 Syncope type: unspecified Anemia D64.9 Anemia type: unspecified type Chronic reflux esophagitis K21.0 Allergic rhinitis J30.9 Asthma J45.909 Chronic head pain R51.9; G89.29 Time Spent (min) 35 (1) Anemia Anemia type: unspecified type Qualified Code(s): D64.9 - Anemia, unspecified (2) Syncope Syncope type: unspecified Qualified Code(s): R55 - Syncope and collapse
[2020-04-23] MEDS: IRON SUCROSE 200 MG in 0.9 % SODIUM CHLORIDE 100 ML IV SCH (17:50)
[2020-04-23] MEDS: MONTELUKAST SODIUM 10 MG TABLET PO SCH (21:44)
[2020-04-24] MEDS ORDERED: POLYETHYLENE (MIRALAX) 17 GM PACK PO SCH (03:00)
[2020-04-24] MEDS: NSS + 20MEQ KCL 20 MEQ/1,000 ML BAG IV SCH ×2 (04:33→11:28)
[2020-04-24] MEDS: ACETAMINOPHEN 325 MG TAB PO PRN ×3 (05:45→16:23)
[2020-04-24] MEDS: PANTOprazole 40 MG in SYRINGE 0 ML IV SCH (08:41)
[2020-04-24] MEDS: FAMOTIDINE 20 MG in SYRINGE 3 ML IV SCH (08:41)
--- NOTE | 2020-04-24 09:36 | History & Physical Bridge Note ---
Date of Service April 24, 2020 History & Physical Bridge Note I have examined the patient, reviewed the History & Physical and in the interval since the performance of the History & Physical I have noted the following changes of clinical significance: tolerated bowel preparation. Reports passing liquids stools. No abdominal pain, nausea or vomiting or overt GIB symptoms. PE: A&Ox3. VSS. RRR without M/R/G. Lungs CTA bilaterally. Abdomen soft, nontender. Normal bowel sounds. Extremities normal to inpsection. A/P: Symptomatic anemia and history of Crohn's colitis. For colonoscopy with Dr. Garcia today. Keep NPO for now. Additional recommendations pending results of testing. Supervising Physician Co-Signing Physician Notes Agree with Lianne Rivas Abd: Soft, NT, ND, +BS Continue current therapy Proceed with colonoscopy.
[2020-04-24 10:07] LABS: Hematocrit (blood only) 28.9 % (37-47); Hemoglobin 8.2 g/dL (12.0-16.0); Mean Corpuscular Hemoglobin 20.3 pg (25-34); Mean Corpuscular Hgb Conc 28.4 g/dL (32-36); Mean Corpuscular Volume 71.7 fL (80-100); Mean Platelet Volume 8.6 fL (7.4-10.4); Nucleated RBC # (auto) 0.02 K/uL (0-0); Nucleated RBC % (auto) 0.4 %; Platelet Count 463 K/uL (130-400); RDW Coefficient of Variation 19.6 % (11.5-14.5); RDW Standard Deviation 50.1 fL (36.4-46.3); Red Blood Count 4.03 M/uL (4.2-5.4)
[2020-04-24 10:47] LABS: BUN Creatinine Ratio 6.8 (10-20); Calcium 8.6 mg/dl (8.5-10.1); Creatinine Clr Calc Pharmacy 113.5 ml/min; Est GFR (African American) 106.1; Est GFR (Non-African American) 91.6; Potassium 4.2 mmol/L (3.5-5.1)
[2020-04-24] MEDS: FERROUS SULFATE 325 MG TAB PO SCH (10:59)
[2020-04-24] MEDS: ESCITALOPRAM OXALATE 20 MG TAB PO SCH (11:28)
--- NOTE | 2020-04-24 14:25 | Anesthesiology Consultation ---
Date of Service April 24, 2020 Assessment & Plan (1) Encounter for pre-operative examination: Chart Review Chart Review: Acceptable Risk for Surgery and Patient NOT seen in Pre Admission Testing Consults Requested none ASA ASA3 Proposed Anesthesia Anesthesia Type: MAC Risk / Benefits Reviewed With: PT / POA / Parent / Guardian, Accepts Plan and In formed Consent Obtained History Surgery Operation Date: 04/22/20 18:00 Proposed Procedures p Colonoscopy EGD Dr. Vesta Lemons MD Operation Date: 04/23/20 16:30 Proposed Procedures p Colonoscopy Dr. Vesta Lemons MD Operation Date: 04/24/20 14:50 Proposed Procedures p Colonoscopy Dr. Jose Garcia, Height/Weight Height: 5 ft 2 in Weight: 119 kg Allergies Allergy/AdvReac Type Severity Reaction Status Date / Time Cephalosporins Allergy Severe anaphylaxis Verified 04/21/20 23:54 Cipro Allergy Intermediate FACIAL Verified 08/31/16 14:37 SWELLING/HIVES ciprofloxacin Allergy MO FACIAL Verified 04/21/20 20:14 SWELLING/HIVES cat dander Allergy Unknown Verified 04/21/20 20:14 dog dander Allergy Unknown Verified 04/21/20 20:14 house dust Allergy Unknown Verified 04/21/20 20:14 mold Allergy Unknown Verified 04/21/20 20:14 pollen extracts Allergy Unknown Verified 04/21/20 20:14 wheat Allergy Unknown Verified 04/21/20 20:14 moxifloxacin AdvReac MT VOMITING Verified 04/21/20 20:14 Medications Home Medications Medication Instructions Recorded Confirmed Last Taken ipratropium-albuterol 3 ml INHALATION Q4H PRN 03/06/18 04/21/20 Unknown montelukast 10 mg tablet 10 mg PO PM #90 tab 01/19/19 04/21/20 Unknown famotidine 20 mg tablet 20 mg PO BID 42 Days #84 tab 04/14/19 04/21/20 Unknown fluticasone 500 mcg-salmeterol 50 1 puffs INHALATION BID PRN ea 07/11/19 04/21/20 Unknown mcg/dose blistr powdr for inhalation albuterol sulfate 90 mcg/actuation 1 - 2 puff INHALATION Q6H PRN #6.7 09/29/19 04/21/20 Unknown aerosol inhaler gm inhaler,assist devices,access #1 ea 09/29/19 04/21/20 Unknown pantoprazole 40 mg tablet,delayed 40 mg PO BID #180 tab 01/25/20 04/21/20 Unknown release escitalopram oxalate 20 mg tablet 20 mg PO DAILY #30 tab 02/14/20 04/21/20 Unknown ferrous sulfate 325 mg (65 mg 325 mg PO BID #60 tab 02/23/20 04/21/20 Unknown iron) tablet,delayed release cyclobenzaprine 5 mg tablet 5 mg PO DAILY PRN #30 tab 03/27/20 04/21/20 Unknown sodium,potassium,mag sulfates 17.5 177 ml PO .COMPLEX #354 ml 04/15/20 04/21/20 Unknown gram-3.13 gram-1.6 gram oral soln fluticasone propionate [Flonase 1 spray INTRANASAL QAM PRN 04/21/20 04/21/20 Unknown Allergy Relief] Active Medications Generic Name Dose Route Start Last Admin Trade Name Freq PRN Reason Stop Dose Admin Acetaminophen 650 mg 04/21/20 23:55 04/24/20 11:32 Acetaminophen 325 Mg Tab PO 05/21/20 23:54 650 mg Q4H PRN Administration Pain or Fever Escitalopram Oxalate 20 mg 04/22/20 09:00 04/24/20 11:28 Escitalopram Oxalate 20 Mg Tab PO 05/22/20 08:59 20 mg DAILY HELEN Administration Ferrous Sulfate 325 mg 04/22/20 09:00 04/24/20 10:59 Ferrous Sulfate 325 Mg Tab PO 05/22/20 08:59 Not Given BID HELEN Potassium Chloride/Sodium Chloride 20 meq in 1,000 mls @ 120 mls/hr 04/21/20 23:55 04/24/20 11:28 Normal Saline W/20 Meq Kcl IV 05/21/20 23:54 120 mls/hr .Q8H20M HELEN Administration Pantoprazole Sodium 40 mg/ 10 mls @ 5 mls/min 04/21/20 23:55 04/24/20 08:41 Syringe IV 05/21/20 23:54 5 mls/min BID HELEN Administration Famotidine 20 mg/ Syringe 5 mls @ 2.5 mls/min 04/21/20 23:55 04/24/20 08:41 IV 05/21/20 23:54 2.5 mls/min BID HELEN Administration Iron Sucrose 200 mg/ Sodium 110 mls @ 220 mls/hr 04/22/20 18:00 04/23/20 18:23 Chloride IV 04/26/20 18:29 Infused DAILY@1800 HELEN Infusion Montelukast Sodium 10 mg 04/22/20 21:00 04/23/20 21:44 Montelukast Sodium 10 Mg Tablet PO 05/22/20 20:59 10 mg PM HELEN Administration NPO Date Last Intake of Fluids: 04/24/20 Time Last Intake of Fluids: 11:00 Last Intake of Fluids Comment: miralax prep Date Last Intake of Solids: 04/21/20 Time Last Intake of Solids: 18:00 Past Medical History Medical History Asthmatic bronchitis delivery delivered Depression Dysfunctional uterine bleeding (11/15/11) Pneumonia Solitary thyroid nodule Exercise / Class Metabolic Activity II 4-5 Yardwork/Stairs/Walk up hill Past Family History Family History Mother Breast cancer Colon cancer Father COPD (chronic obstructive pulmonary disease) Colon cancer Crohn's disease Other Arthritis Asthma Atypical chest pain Cancer Chronic cough Hypertension Kidney stone Migraine Denies family history of Ovarian cancer Prostate cancer Myocardial infarction Past Surgical History Surgical History H/O section H/O oophorectomy Left H/O: hysterectomy History of appendectomy Hx of tubal ligation Cal[place] teeth removed Past Anesthesia History No Hx of Anesthesia Complications and No Family Hx of Anesthesia Complications History of PONV No Hx of PONV and No Hx of Motion Sickness Social History Smoking Status: Never smoker Hx Alcohol Use: Yes Alcohol type: wine alcohol intake frequency: holidays/special occasions only Hx Substance Use: No Physical Exam Vital Signs Last Vital Signs Temp 36.8 C 04/24/20 14:06 Pulse 77 04/24/20 14:06 Resp 16 04/24/20 14:06 BP 141/93 H 04/24/20 14:06 Pulse Ox 97 04/24/20 14:06 Constitutional + morbidly obese ENMT Mouth: no dentition abnormality Thyromental Distance: > or= 3.5 Finger Breadths Mallampati Class: II Neck normal visual inspection Respiratory normal respiratory effort Auscultation: lungs clear to auscultation bilaterally Cardiovascular Rate/Rhythm: regular rate and regular rhythm Psychiatric Orientation: alert Testing Laboratory Results 04/24/20 09:39 04/24/20 09:39 PT 10.2 Seconds (9.0-12.0) 04/21/20 20:10 INR 1.0 (0.9-1.1) 04/21/20 20:10 APTT 23.4 Seconds (21.0-31.0) 04/21/20 20:10 Blood Type O Positive 04/22/20 00:12 Antibody Screen NEGATIVE 04/22/20 00:12
[2020-04-24] MEDS ORDERED: PROPOFOL IV EMULSION 10 MG/ML 20 ML VIAL IV ONE (14:33)
[2020-04-24] MEDS ORDERED: MIDAZOLAM HCL 1 MG/ML 2ML VIAL ONE (14:33)
[2020-04-24] MEDS ORDERED: LIDOCAINE HCL 2% 2 ML VIAL/AMP(20MG/ML) INFIL ONE (14:33)
--- NOTE | 2020-04-24 15:09 | Anesthesiology Progress Note ---
Date of Service April 24, 2020 Anesthesia Post Procedure Vital Signs Vital Signs: Temp Pulse Pulse Resp BP BP Pulse Ox 04/24/20 14:59 75 16 102/60 95 04/24/20 14:06 36.8 C 77 16 141/93 H 97 04/24/20 11:30 37.0 C 72 18 116/74 96 04/24/20 07:33 69 04/24/20 07:26 36.5 C 70 20 129/80 96 04/24/20 03:15 36.7 C 74 20 142/80 H 96 04/24/20 00:05 68 04/23/20 22:54 36.6 C 66 20 118/69 95 04/23/20 18:23 72 18 136/83 97 04/23/20 15:45 37.2 C 74 20 115/77 98 Pain Intensity Chest: Pain Intensity: 6 Head: Pain Intensity: 5 Transfer of Care Handoff Completed per policy Notes Mental Status: alert / awake / arousable and participated in evaluation Patient Amnestic to Procedure: Yes Nausea / Vomiting: adequately controlled Pain: adequately controlled Airway Patency, RR, SpO2: stable & adequate BP & HR: stable & adequate Hydration State: stable & adequate Anesthetic Complications: no major complications apparent and Pt Satisfied with anesthetic care
--- NOTE | 2020-04-24 15:18 | GI REPORT ---
Patient Name: Estefanía Jeronimo Procedure Date: 04/24/2020 2:38 PM Date of : 1980 Admit Type: Inpatient Age: 39 Gender: Female Attending MD: Cayetano Garcia DO Procedure: Colonoscopy Providers: Cayetano Garcia DO Referring MD: Nic Nair M.d. Indications: Iron deficiency anemia Medicines: Monitored Anesthesia Care Complications: No immediate complications. Estimated Blood Loss: Estimated blood loss: none. Procedure: Pre-Anesthesia Assessment: - Prior to the procedure, a History and Physical was performed, and patient medications and allergies were reviewed. The patient's tolerance of previous anesthesia was also reviewed. The risks and benefits of the procedure and the sedation options and risks were discussed with the patient. All questions were answered, and informed consent was obtained. Prior Anticoagulants: The patient has taken no previous anticoagulant or antiplatelet agents. ASA Grade Assessment: II - A patient with mild systemic disease. After reviewing the risks and benefits, the patient was deemed in satisfactory condition to undergo the procedure. After I obtained informed consent, the scope was passed under direct vision. Throughout the procedure, the patient's blood pressure, pulse, and oxygen saturations were monitored continuously. The scope was introduced through the anus and advanced to the terminal ileum. The colonoscopy was performed without difficulty. The patient tolerated the procedure well. The quality of the bowel preparation was good. The terminal ileum, ileocecal valve, appendiceal orifice, and rectum were photographed. Findings: The perianal and digital rectal examinations were normal. A scattered area of moderately ulcerated mucosa was found in the entire colon. Biopsies were taken with a cold forceps for histology. Impression: - Ulcerated mucosa in the entire examined colon. Biopsied. Recommendation: - Return patient to hospital blood for ongoing care. - Advance diet as tolerated. - Continue present medications. - Repeat colonoscopy for surveillance based on pathology results. - Return to primary care physician as previously scheduled. Cayetano Garcia DO 04/24/2020 3:17:24 PM This report has been signed electronically. Note Initiated On: 04/24/2020 2:38 PM Number of Addenda: 0 I attest to the content of the Intraoperative Record and orders documented therein, exceptions below {[id number]}
--- NOTE | 2020-05-02 08:14 | Discharge Summary ---
Date of Service April 24, 2020 Admission HPI Per Admitting Provider Estefanía Faith is a 39-year-old female with a past medical history of asthma, reflux esophagitis with hiatal hernia, concern for Crohn's versus IBD not on steroids or Biologics, and progressive lightheadedness who presents to the emergency department following an episode of syncope. Estefanía reports her symptoms began several months ago and she had a syncopal episode in February. She was found to have low blood counts at that time. She was pursuing outpatient work-up, and was scheduled for a GI evaluation this Wednesday for which she has a pending Covid test although she has had no symptoms of Covid. She reports that she presented to the emergency department because at dinner the evening of admission she was in an otherwise normal state of health when she became extremely lightheaded and her 16 and 17-year-old girls saw her become confused, lay back, and have an episode of body shaking. This episode lasted less than 1 minute and when she came to she quickly returned to her normal baseline level of cognitive function with no strength or neurologic deficits. She had a headache in the back and front of her head following this episode which has been throbbing. She did not have any incontinence or tongue biting during this episode. In the past few weeks she has had progressively worsening lightheadedness when standing too quickly or bending over. She has had intermittently low blood pressure. She had a Hemoccult positive stool on admission. At her outpatient work-up she was noted to be progressively anemic, with a hemoglobin of 11 2 years ago which had dropped to 8/9 as an outpatient 2 months ago. She was pending outpatient work-up as above. She has been taking iron twice daily, but notes that this upsets her stomach and sometimes cause her to become nauseous or vomit. She has intermittently had episodes of sudden nausea and vomiting without blood or bile when eating meals, but reports that this is inconsistent and is not usually preceded by feeling nauseous during the day. She has a history of intermittent bowel changes which were thought to be possibly due to Crohn's versus IBD, she reports she does not have any family history of Crohn's or autoimmune disease. She has not had blood in her bowel movements. She denies recent diarrhea and constipation. She has not had any fever, chills, cough, change in taste or smell, or Covid exposure. She is having some central chest pain which is worse with pressing on it. During her episode she did not fall and strike her head or chest. Medical history: Reviewed Surgical history: Reviewed Allergies: Reviewed Family history: No family history of colorectal cancer, remaining family history reviewed Social history: Denies tobacco, alcohol, and recreational drug use. Lives at home with her and 2 daughters. No sick contacts in the home. CODE STATUS: Full code Principal Diagnosis syncope/ Crohn's disease Discharge Exam Constitutional: WD/WN, vitals as above Eyes: PERRL, conjunctivae normal, anicteric sclerae ENMT: external ear and nose normal, oropharynx normal Neck: trachea midline, no thyromegaly Respiratory: normal respiratory effort, lungs clear to auscultation Cardiovascular: RRR, no murmur, no edema Gastrointestinal (Abdomen): normal bowel sounds, soft, nontender, no hepatosplenomegaly Musculoskeletal: no cyanosis or clubbing, extremities motor strength 5/5 Skin: no rashes, warm and dry Neurologic: PERRL, EOMI, accommodation nl, no face palsy, no dysarthria Psychiatric: A+Ox3, euthymic affect Discharge Data Allergies Allergy/AdvReac Type Severity Reaction Status Date / Time Cephalosporins Allergy Severe anaphylaxis Verified 05/01/20 15:55 Cipro Allergy Intermediate FACIAL Verified 08/31/16 14:37 SWELLING/HIVES ciprofloxacin Allergy MO FACIAL Verified 05/01/20 15:55 SWELLING/HIVES cat dander Allergy Unknown Verified 05/01/20 15:55 dog dander Allergy Unknown Verified 05/01/20 15:55 house dust Allergy Unknown Verified 05/01/20 15:55 mold Allergy Unknown Verified 05/01/20 15:55 pollen extracts Allergy Unknown Verified 05/01/20 15:55 wheat Allergy Unknown Verified 05/01/20 15:55 moxifloxacin AdvReac TN VOMITING Verified 05/01/20 15:55 Consultations 04/21/20 21:59 ED Decision to Admit Stat 04/21/20 23:55 Consult Gastroenterology Stat Procedures Performed Operation Date: 04/22/20 18:00 Actual Procedures p EGD Biopsy Cytology - Mohamud Lemons MD s EGD Polypectomy(Not Applicable) - Mohamud Lemons MD Operation Date: 04/23/20 16:30 <No data on this case meets the specified criteria> Operation Date: 04/24/20 14:50 Actual Procedures p Colonoscopy Biopsy Cytology - Cayetano Ramirez Case, DO Ordered Studies 04/21/20 19:27 CT head/brain wo con Urgent 04/21/20 20:54 CT angio chest PE protocol Urgent Hospital Course (1) Syncope: (1) Syncope: Estefanía aFith is a 39-year-old female with a past medical history of asthma, reflux esophagitis with hiatal hernia, concern for Crohn's versus IBD not on steroids or Biologics, and progressive lightheadedness who presents to the emergency department following an episode of syncope. Syncope suspect 2/2 anemia of chronic GI bleed secondary to crohn's disease Patient with syncopal episode, lasted less than 1 minute, did not strike her head. No tongue biting, does not appear consistent with seizure by history. CThead: No acute findings Hemoglobin decreased to 7.2 on admission, was 8.3 2 months ago Pt has ongoing outpt work-up and was to have c-scope this Wednesday. Hemoccult positive in ED. Microcytosis 69fL Iron studies with low iron and high normal TIBC Type and screen ordered, blood consent completed. 2 units PRBC ordered. Pt with chest pain and SOB with initial bag, sx similar to prior CP and SOB CXR WNL, VSS Tolerated 2nd unit without issue. Hb s/p 2nd unit was 8.4 (has received roughly 1.5 units), will hold on further transfusion. Stable for discharge. will discharge on budesonide 9 mg PO Daily GI c/s: EGD 04/22 with esophagitis, gastritis, polyp and bx pending Findings of moderately active Crohn's colitis was noted on colonoscopy. Continue iron supplementation, patient may benefit from IV iron infusion during admission as she has not tolerated PO iron as outpt Start venofer 200mg IV x5 doses, first dose 04/22 EKG shows no acute changes and no signs of ischemia Cardiac exam reveals a systolic murmur most likely flow murmur, given episode of sudden syncope x2 we will proceed with TTE ok for discharge. will closely f/u with GI. (2) Anemia: hemoglobin is stable. (3) Chronic reflux esophagitis: As above (4) Allergic rhinitis: (5) Asthma: Stable, continue home meds Continue home inhalers Continue montelukast 10 mg daily DuoNebs as needed (6) Chronic head pain: NSAIDs likely cause of pain. will monitor. may need to place on preventative meds as she has headaches 2-3 times a week. Total Time Total Time Spent Total Time Spent (In Minutes): 32 Total Time Includes: Examination of the Patient, Discharge Planning and Medication Reconciliation Discharge Plan Discharge Items Patient Disposition: Home - Self-Care Reason For Visit: SYNCOPE,ANEMIA Discharge Diagnosis: Anemia Activity: Resume your previous activity Non-emergency contact: Primary Care Provider Call non-emergency contact if: you have any medication questions Follow-up/Referrals: Bhavya Israel MD [Primary Care Provider] - 04/29/20 10:20 am (If you need to change this appointment, please call [phone].) Diet: Regular and Low Fat Addtl Attending Provider Instructions: You have been hospitalized for an acute medical problem. During your stay at [facility], we have made an effort to correct the problem that brought you to the hospital while keeping you as comfortable as possible. Medications were used to bring your condition under control and your discharge instructions will include directions for any medications you should take after leaving the hospital. Please make sure you see your Primary Care Provider as part of your follow up plan. Pending Studies at Discharge: No Stand-Alone Forms: My [facility], Work/School Release (Inpt), Smoking Cessation Medications and DC Order Prescriptions: New ferrous gluconate 324 mg (37.5 mg iron) tablet 324 mg PO TID Qty: 90 RF: 0 budesonide 9 mg tablet,delayed and ext.release 9 mg PO DAILY 56 Days Qty: 56 RF: 0 Continued pantoprazole 40 mg tablet,delayed release (DR/EC) 40 mg PO BID Qty: 180 RF: 1 escitalopram oxalate 20 mg tablet 20 mg PO DAILY Qty: 30 RF: 5 montelukast [Singulair] 10 mg tablet 10 mg PO PM Qty: 90 RF: 0 cyclobenzaprine 5 mg tablet 5 mg PO DAILY PRN (Reason: muscle spasm) Qty: 30 RF: 0 fluticasone propion-salmeterol 500-50 mcg/dose blister with device 1 puffs inhalation BID PRN (Reason: Shortness Of Breath) RF: 0 albuterol sulfate [Proventil HFA] 90 mcg/actuation HFA aerosol inhaler 1 - 2 puff INHALATION Q6H PRN (Reason: Shortness Of Breath) Qty: 6.7 RF: 3 (DME) inhaler,assist devices,access Device See Rx Instructions .ROUTE .MEDSUPPLY Qty: 1 RF: 0 fluticasone propionate [Flonase Allergy Relief] 50 mcg/actuation spray,suspension 1 spray INTRANASAL QAM PRN (Reason: Nasal Congestion) RF: 0 ipratropium-albuterol 0.5 mg-3 mg(2.5 mg base)/3 mL Solution For Nebulization 3 ml Inhalation Q4H PRN (Reason: Shortness Of Breath) RF: 0 Discontinued ferrous sulfate 325 mg (65 mg iron) tablet,delayed release (DR/EC) 325 mg PO BID Qty: 60 RF: 0 No Action famotidine [Acid Dancing Master (famotidine)] 20 mg tablet 20 mg PO BID 42 Days Qty: 84 RF: 3 mesalamine 1.2 gram tablet,delayed release (DR/EC) 4.8 g PO DAILY Qty: 120 RF: 0 Discharge Orders: Discharge Order (Routine); Ordered 04/24/20 Ordered By: Nic Sepulveda/Other Patient Handouts: Lifestyle Changes for Controlling GERD, Discharge Instructions- Eating a ... Admission Data Admit Date/Time: 04/21/20 23:05 Attending Provider: Nic Nair Admit Provider: Josue Escalante Primary Care Provider: Bhavya Israel Other Providers: Duke Morales ; Cayetano Garcia Other Interventions: Discharge Summary Assessment (RN) Last Done: 04/24/20 16:52 Coding Level of Care Code D/C Day Management >30 mins Diagnoses Syncope R55 Syncope type: unspecified Anemia D64.9 Anemia type: unspecified type Chronic reflux esophagitis K21.0 Allergic rhinitis J30.9 Asthma J45.909 Chronic head pain R51.9; G89.29
== END 2020-04-24 17:48 | disposition home or self-care (01) | DRG 386 ==
LOC: ED 19:11 → SUATTDRO 23:05 → 2N 23:05

== ENCOUNTER 2024-09-08 16:34 | Inpatient (IN) ==
--- NOTE | 2024-09-08 17:23 | Emergency Department Note ---
Impression & Plan SOB (shortness of breath), RSV bronchiolitis, Asthma exacerbation, Failure of outpatient treatment ED Provider Note NAME: SHANA TATE AGE: 44 SEX: F : 1980 ARRIVES VIA: Walk-In INFORMANT: [Patient] ED PROVIDER(S): [Carlos Garcia MD] CHIEF COMPLAINT: Shortness of breath HISTORY OF PRESENT ILLNESS: The patient is a 44-year-old asthmatic who has had increasing dyspnea over the last 4 to 5 days. Her doctors started prednisone 2 days ago, she has been using her nebulizer 3 times a day, she still feels winded. She was at the outpatient office today, she was given a DuoNeb and referred to the ER. The patient thinks that she is having a flareup of asthma from outside environmental allergies. She is on an allergy medication. She has had coughing but there has been no fever. No sick contacts. The patient states that she has no history of DVT or PE, no recent long/prolonged travel by car plane or train. The patient was given a DuoNeb prior to arrival. PMHx/PSHx/Social Hx: See Below PHYSICAL EXAM: GENERAL: Patient is in no acute distress. HEENT: No acute trauma, normocephalic atraumatic, mucous membranes moist, no nasal congestion. NECK: No stridor, no adenopathy, no meningismus, trachea is midline. LUNGS: Diminished breath sounds with wheezing and crackles bilaterally. Dry cough noted. HEART: Without murmurs gallops or rubs, regular rate and rhythm. Heart tones quite distant. ABDOMEN: Soft, nontender, no peritonitis. Obese. EXTREMITIES: No cyanosis, full range of motion of all the joints without pain or difficulty. Mild bilateral pedal edema. NEUROLOGIC: Oriented x 3, no acute motor or sensory deficits, no focal weakness. SKIN: No jaundice, no diaphoresis. DIFFERENTIAL DIAGNOSIS: Asthma flare, bronchitis or pneumonia, cardiac ischemia, PE, viral illness, among others. EMERGENCY DEPARTMENT PROCEDURES: MEDICAL DECISION MAKING: There is no leukocytosis or concerning anemia. There is a normal platelet count. No coagulopathy. No renal failure or significant electrolyte abnormality. No concerning liver enzyme elevation. BNP is not elevated making CHF unlikely. ECG showed a sinus rhythm, no obvious ST elevation. Cardiac enzyme testing x 1 was not consistent with acute cardiac injury. Chest x-ray showed some diffuse parenchymal congestion, likely from her body habitus. No focal pneumonia. Respiratory bio fire was positive for RSV. The patient received a DuoNeb, a second DuoNeb was given. She was given IV Tylenol for pain, IV Toradol for pain, she was given IV magnesium. She received IV Decadron. Despite the above treatment, the patient is still short of breath and wheezing. She has RSV and this has flared her asthma, I do think she requires a hospital stay. She has failed outpatient management. I spoke with the patient and case management. The on-call hospitalist was consulted. Prior/Outside records/notes reviewed: Outpatient notes describing her presentation, the care and the plan outpatient. ECG per my interpretation: Indication was shortness of breath. The ECG shows a normal sinus rhythm with some subtle sinus arrhythmia. The rate is 81. There is no acute ST elevation, there are no PVCs. There is an incomplete right bundle branch block. QTc was 448. Continuous Cardiac Monitoring per my interpretation: An order was placed for continuous cardiac monitoring. The monitor shows a rate of 96 with normal sinus rhythm. Imaging/x-ray results per my interpretation: Chest x-ray does not show pneumonia, pneumothorax or CHF. Chronic Medical/Social conditions affecting care: Obesity, history of asthma. Care/Management discussed with: Case management, the on-call hospitalist Level of care consideration(s): After review of the information above and other included data: --I believe the patient requires escalation of care to admission DISPOSITION: Admission Past Med/Surg History Problem List Failure of outpatient treatment (Acute) Asthma exacerbation (Acute) RSV bronchiolitis (Acute) SOB (shortness of breath) (Acute) Dietary counseling and surveillance Obesity Diarrhea Routine gynecological examination Obesity, morbid, BMI 50 or higher [place] (obstructive sleep apnea) Allergic rhinitis with postnasal drip Exertional shortness of breath Calcific tendinitis of right shoulder GERD (gastroesophageal reflux disease) Intermittent lightheadedness Palpitations Biliary dyskinesia Large hiatal hernia RUQ abdominal tenderness (Acute) "on again off again" Crohn's colitis Chronic head pain Anxiety Anemia (Acute) chronic>being monitored Allergic rhinitis (Chronic) Asthma (Chronic) inhalers/nebulizer prn>last used inhaler March 2023 Chronic reflux esophagitis (Chronic) Chronic sinusitis (Chronic) Depression Allergic reaction (Chronic) Medical History History of depression HILL (dyspnea on exertion) Follows [facility] Pulm Crohn's colitis History of anxiety Asthma Anemia CCP/[place] monitoring History of COVID-19 spring/summer 2021, tested at PCP, not hosp; no taste and smell, "cold" symptoms>resolved. Hiatal hernia History of blood transfusion 2020 Morbid obesity with BMI of 45.0-49.9, adult Hypotension states she normally runs 90s/50s Esophageal reflux Sleep apnea APAP per sleep clinic--cpap per patient Surgical History S/P shoulder surgery Slow to wake up after anesthesia S/P cholecystectomy History of anesthesia reaction Nausea and vomiting after administration of anesthetic agent History of lumpectomy of left breast History of esophagogastroduodenoscopy (EGD) S/P colonoscopy Hx of tubal ligation H/O oophorectomy H/O section H/O: hysterectomy History of appendectomy [place] teeth removed Family History Mother Colon cancer Breast cancer Family history of reaction to anesthesia Father Colon cancer Crohn's disease COPD (chronic obstructive pulmonary disease) Other Arthritis Asthma Atypical chest pain Cancer Chronic cough Hypertension Kidney stone Migraine Denies family history of Ovarian cancer Prostate cancer Myocardial infarction Social History Smoking Status: Never smoker Second Hand Exposure: No; Do You Dip or Chew Tobacco: No; Hx Alcohol Use: No Hx Substance Use: No Preferred Language: Greek Communication Ability: Effective Visual Impairment: No Limitations Hearing Ability: Normal 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 Beliefs That Will Affect Care: None marital status: Current Living Situation: Spouse and Family current occupational status: employed current occupation: works at detention How many Children do You have: 2 Feels Safe at Home: Yes Childhood Exposure to Second-Hand Smoke: Yes Diet: regular caffeine: Yes during the past year weight has: increased > 10 lbs Dental Care, Regularly: Yes Physical Activity Frequency: 1-2 Times per Week Seatbelt Use: always Sunscreen Use: Yes Do you think of yourself as: straight/heterosexual Assistive Devices: CPAP Allergies Allergies Allergy/AdvReac Type Severity Reaction Status Date / Time wheat Allergy Intermediate stomach Verified 09/08/24 15:23 pains cat dander Allergy Mild sneezing/watery Verified 09/08/24 15:23 eyes dog dander Allergy Mild sneezing/watery Verified 09/08/24 15:23 eyes house dust Allergy Mild sneezing/watery Verified 09/08/24 15:23 eyes mold Allergy Mild sneezing/watery Verified 09/08/24 15:23 eyes pollen extracts Allergy Mild sneezing/watery Verified 09/08/24 15:23 eyes ciprofloxacin AdvReac Severe Anaphylaxis Verified 09/08/24 15:23 moxifloxacin AdvReac Intermediate Vomiting Verified 09/08/24 15:23 Home Meds Home Medications Medication Instructions Recorded Confirmed multivitamin 1 tab PO QAM 11/21/21 09/08/24 vitamin D3 125 mcg (5,000 2 cap PO DAILY 04/27/24 09/08/24 unit)-vitamin K2 100 mcg capsule Previous Rx's Medication Instructions Recorded famotidine 40 mg tablet (Pepcid) 40 mg PO BID #180 tabs 03/16/23 ipratropium 0.5 mg-albuterol 3 mg 3 ml inhalation QID PRN wheezing 09/03/23 (2.5 mg base)/3 mL nebulization #90 mL soln albuterol 90 mcg-budesonide 80 2 inh inhalation QID PRN shortness 09/15/23 mcg/actuation HFA aerosol inhaler of breath or wheezing #10.7 grams (Airsupra) fluticasone furoate 100 1 inh inhalation DAILY #60 ea 03/02/24 mcg-vilanterol 25 mcg/dose inhalation powder (Breo Ellipta) montelukast 10 mg tablet 10 mg PO HS #90 tabs 03/02/24 (Singulair) risankizumab-rzaa 360 mg/2.4 mL See Rx Instructions .Route 04/24/24 (150 mg/mL) subcut wearable .COMPLEX #2.4 mL injector (Skyrizi) sertraline 100 mg tablet See Rx Instructions .Route 04/27/24 .COMPLEX #135 tabs pantoprazole 40 mg tablet,delayed 40 mg PO BID #180 tabs 05/31/24 release (Protonix) bupropion HCl 150 mg tablet,12 hr See Rx Instructions .Route 07/11/24 sustained-release (Wellbutrin SR) .COMPLEX #60 ea naltrexone 50 mg tablet See Rx Instructions .Route 07/25/24 .COMPLEX #30 tabs albuterol sulfate 90 mcg/actuation 1 - 2 puff inhalation Q6H PRN 08/25/24 aerosol inhaler Shortness Of Breath #6.7 grams prednisone 20 mg tablet 40 mg (2 x 20 mg) PO DAILY 5 days 09/06/24 #10 tabs Results & Data (ED) Vital Signs Vital Signs - 24 hr 09/08/24 16:52 09/08/24 17:12 09/08/24 17:22 Temperature 37 C Temperature Source Skin Pulse Rate 96 H Pulse Rate [Apical] Respiratory Rate 26 H Respiratory Effort / Characteristics Short of Breath Non-Labored Spontaneous Respiratory Depth Normal Blood Pressure 132/79 Blood Pressure [Left Arm] Blood Pressure Mean 96 Blood Pressure Mean [Left Arm] Pulse Oximetry 91 93 Oxygen Delivery Method Room Air Room Air Sepsis Recent Fever Within 48 Hours No Sepsis New/Unexplained Change in Mental Status N/A Sepsis Action Taken by Nursing No Action Required 09/08/24 18:30 09/08/24 19:00 09/08/24 19:04 Temperature Temperature Source Pulse Rate 79 Pulse Rate [Apical] 88 Respiratory Rate 18 Respiratory Effort / Characteristics Respiratory Depth Blood Pressure Blood Pressure [Left Arm] 117/65 Blood Pressure Mean Blood Pressure Mean [Left Arm] 82 Pulse Oximetry 96 95 Oxygen Delivery Method Room Air Room Air Sepsis Recent Fever Within 48 Hours Sepsis New/Unexplained Change in Mental Status Sepsis Action Taken by Half-Way Medications Current Medication List: was personally reviewed by me Laboratory Data Attestation: I reviewed the patient's lab results. 09/08/24 17:30 09/08/24 17:30 Lab Results 09/08/24 09/08/24 Range/Units 17:30 Unknown WBC 8.65 (4.8-10.8) K/ul RBC 4.31 (4.20-5.40) M/uL Hgb 12.7 (12.0-16.0) g/dl Hct 37.6 (37.0-47.0) % MCV 87.2 (80.0-100.0) fL MCH 29.5 (25.0-34.0) pg MCHC 33.8 (32.0-36.0) g/dL RDW Std Deviation 44.7 (36.4-46.3) fL RDW Coeff of [place] 13.8 (11.5-14.5) % Plt Count 301 (130-400) K/uL MPV 9.0 L (9.4-12.4) fL Immature Gran % (Auto) 0.6 % Neut % (Auto) 85.7 % Lymph % (Auto) 10.1 % [place] % (Auto) 3.1 % Eos % (Auto) 0.2 % Baso % (Auto) 0.3 % Neut # (Auto) 7.41 H (1.40-6.50) K/uL Lymph # (Auto) 0.87 L (1.20-3.40) K/uL [place] # (Auto) 0.27 (0.11-0.59) K/uL Eos # (Auto) 0.02 (0.00-0.50) K/uL Baso # (Auto) 0.03 (0.00-0.20) K/uL Immature Gran # (Auto) 0.05 (0.01-0.20) K/uL PT 10.2 (9.0-12.0) Seconds INR 0.9 (0.9-1.1) APTT 27 (21-31) Seconds PTT Ratio 1.0 Sodium 137 (136-145) mmol/L Potassium 4.0 (3.5-5.1) mmol/L Chloride 104 (98-107) mmol/L Carbon Dioxide 27 (21-32) mmol/L Anion Gap 6 (3-11) BUN 18 (6-23) mg/dl Creatinine 0.89 (0.6-1.2) mg/dl Est Cr Clr Drug Dosing 109.8 ml/min eGFR 80.92 BUN/Creatinine Ratio 20.2 H (10-20) Glucose 159 H (70-99(Fasting)) mg/dl Calcium 9.0 (8.6-10.3) mg/dl Magnesium 2.0 (1.7-2.4) mg/dl Total Bilirubin 0.4 (0.2-1.0) mg/dl AST 31 (13-39) U/L ALT 13 (7-52) U/L Alkaline Phosphatase 65 (34-104) U/L Troponin I High Sens 4.3 (0-14) pg/ml B-Natriuretic Peptide 40 (0-100) pg/ml Total Protein 7.9 (6.0-8.3) gm/dl Albumin 4.3 (3.4-5.0) gm/dl Globulin 3.6 (2.5-4.0) gm/dl Albumin/Globulin Ratio 1.2 (0.9-2) Adenovirus (PCR) Not Detected (NotDetected) B. pertussis DNA (PCR) Not Detected (NotDetected) B.parapertussis DNA PCR Not Detected (NotDetected) C. pneumoniae DNA (PCR) Not Detected (NotDetected) Coronavirus OC43 (PCR) Not Detected (NotDetected) Coronavirus HKU1 (PCR) Not Detected (NotDetected) Coronavirus 229E (PCR) Not Detected (NotDetected) SARS-CoV-2 (PCR) Not Detected (NotDetected) Coronavirus NL63 (PCR) Not Detected (NotDetected) Human Metapneumovir PCR Not Detected (NotDetected) Influenza Type A (PCR) Not Detected (NotDetected) Influenza Type B (PCR) Not Detected (NotDetected) M. pneumoniae (PCR) Not Detected (NotDetected) Parainfluenza 1 (PCR) Not Detected (NotDetected) Parainfluenza 2 (PCR) Not Detected (NotDetected) Parainfluenza 3 (PCR) Not Detected (NotDetected) Parainfluenza 4 (PCR) Not Detected (NotDetected) RSV (PCR) DETECTED A (NotDetected) Entero/Rhino (PCR) Not Detected (NotDetected) Administered Medications Discontinued Medications Albuterol (Albut/Ipratrop 3mg/0.5mg Neb 3 Ml Vial) 3 ml NEB NOW STA; Protocol Stop: 09/08/24 17:13 Last Admin: 09/08/24 17:32 Dose: 3 ml Documented By: NRB Albuterol (Albut/Ipratrop 3mg/0.5mg Neb 3 Ml Vial) 3 ml NEB NOW STA; Protocol Stop: 09/08/24 18:28 Last Admin: 09/08/24 19:00 Dose: 3 ml Documented By: EMB Dexamethasone Sodium Phosphate (DexamethasonePf 10 Mg/Ml Vial) 10 mg IV NOW ONE Stop: 09/08/24 17:21 Last Admin: 09/08/24 17:32 Dose: 10 mg Documented By: NRB Magnesium Sulfate/Dextrose (Magnesium Sulfate / D5w) 1 gm in 100 mls @ 100 mls/hr IV NOW STA Stop: 09/08/24 18:19 Last Infusion: 09/08/24 18:39 Dose: Infused Documented By: Admin: 09/08/24 17:32 Dose: 100 mls/hr Documented By: NRB Acetaminophen (Ofirmev) 1,000 mg in 100 mls @ 400 mls/hr IV NOW STA Stop: 09/08/24 19:19 Last Admin: 09/08/24 19:17 Dose: 400 mls/hr Documented By: BLANKA Ketorolac Tromethamine (Ketorolac Tromethamine 15 Mg/Ml Vial) 15 mg IV NOW STA Stop: 09/08/24 19:06 Last Admin: 09/08/24 19:15 Dose: 15 mg Documented By: EMB Imaging Data Radiologist's Impression: Chest X-Ray 09/08/24 17:12 Clinical History: Dyspnea Technique: A frontal view of the chest was obtained Comparison is made to the prior examination dated 08/02/2023 Findings: There is new diffuse interstitial prominence, concerning for mild pulmonary edema. The heart is mildly enlarged. No pleural effusion or pneumothorax is seen. There is no definite pulmonary nodule. No fracture is noted. No foreign body is seen Impression: Mild cardiomegaly and suspected mild pulmonary edema ACT 112: Positive. There are findings on this exam that require communication between the performing entity and the patient following Patient Test Result Information Act ([place] ACT 112) guidelines. Electronically signed by Scottie Gregorio 09-08-2024 6:07 PM Discharge Plan Visit Data Chief Complaint: Shortness of Breath/Dyspnea Stated Complaint: SOB, WHEEZING, COUGH, REF BY DOC ED Provider: Carlos Garcia Discharge Problem: SOB (shortness of breath), RSV bronchiolitis, Asthma exacerbation, Failure of outpatient treatment Patient Disposition: Admitted As Inpatient Condition: Fair Forms Stand Alone Forms: [facility] [place] Prescriptions Prescriptions: No Action Airsupra 90-80 mcg/actuation HFA aerosol inhaler 2 inh inhalation QID PRN (Reason: shortness of breath or wheezing) Qty: 10.7 4RF Skyrizi 360 mg/2.4 mL (150 mg/mL) wearable injector See Rx Instructions .ROUTE .COMPLEX Qty: 2.4 6RF Dose Instruction: INSERT 1 CARTRIDGE INTO ON-BODY INJECTOR AND INJECT 360 MG UNDER THE SKIN EVERY 8 WEEKS. Rx Instructions: INSERT 1 CARTRIDGE INTO ON-BODY INJECTOR AND INJECT 360 MG UNDER THE SKIN EVERY 8 WEEKS. pantoprazole [Protonix] 40 mg tablet,delayed release (DR/EC) 40 mg PO BID Qty: 180 3RF albuterol sulfate 90 mcg/actuation HFA aerosol inhaler 1 - 2 puff INHALATION Q6H PRN (Reason: Shortness Of Breath) Qty: 6.7 3RF famotidine [Pepcid] 40 mg tablet 40 mg PO BID Qty: 180 3RF vitamin D3-vitamin K2 125 mcg (5,000 unit)-100 mcg capsule 2 cap PO DAILY sertraline 100 mg tablet See Rx Instructions .ROUTE .COMPLEX Qty: 135 3RF Dose Instruction: TAKE 1 & 1/2 TABLETS BY MOUTH DAILY Patient Comments: qam Rx Instructions: TAKE 1 & 1/2 TABLETS BY MOUTH DAILY QAM bupropion HCl [Wellbutrin SR] 150 mg tablet sustained-release 12 hr See Rx Instructions .Route .COMPLEX Qty: 60 2RF Rx Instructions: One tablet by mouth once daily for 7 days then increase to twice daily; naltrexone 50 mg tablet See Rx Instructions .Route .COMPLEX Qty: 30 2RF Rx Instructions: Take 1/2 tablet by mouth once daily for 7 days and then increase to 1/2 tablet by mouth twice daily; fluticasone furoate-vilanterol [Breo Ellipta] 100-25 mcg/dose blister with device 1 inh inhalation DAILY Qty: 60 7RF montelukast [Singulair] 10 mg tablet 10 mg PO HS Qty: 90 1RF ipratropium-albuterol 0.5 mg-3 mg(2.5 mg base)/3 mL solution for nebulization 3 ml inhalation QID PRN (Reason: wheezing) Qty: 90 6RF prednisone 20 mg tablet 40 mg PO DAILY 5 Days Qty: 10 0RF multivitamin Tablet 1 tab PO QAM Referrals Referrals: Bhavya Israel MD [Primary Care Provider] - Discharge Problem: Asthma exacerbation Qualifiers: Asthma severity: moderate Asthma persistence: persistent Qualified Code(s): J 45.41 - Moderate persistent asthma with (acute) exacerbation
[2024-09-08] MEDS: dexAMETHasone**PF** 10 MG/ML VIAL IV ONE (17:32)
[2024-09-08] MEDS: ALBUT/IPRATROP 3MG/0.5MG NEB 3 ML VIAL NEB STA ×2 (17:32→19:00)
[2024-09-08] MEDS: MAGNESIUM SULFATE / D5W 1 GM/100 ML BAG IV STA (17:32)
[2024-09-08 17:42] LABS: Basophils # (auto) 0.03 K/uL (0.00-0.20); Basophils % (auto) 0.3 %; Eosinophils # (auto) 0.02 K/uL (0.00-0.50); Eosinophils % (auto) 0.2 %; Hematocrit (blood only) 37.6 % (37.0-47.0); Hemoglobin 12.7 g/dl (12.0-16.0); Immature Granulocytes # (auto) 0.05 K/uL (0.01-0.20); Immature Granulocytes % (auto) 0.6 %; Lymphocytes # (auto) 0.87 K/uL (1.20-3.40); Lymphocytes % (auto) 10.1 %; Mean Corpuscular Hemoglobin 29.5 pg (25.0-34.0); Mean Corpuscular Hgb Conc 33.8 g/dL (32.0-36.0); Mean Corpuscular Volume 87.2 fL (80.0-100.0); Monocytes # (auto) 0.27 K/uL (0.11-0.59); Monocytes % (auto) 3.1 %; Neutrophils # (auto) 7.41 K/uL (1.40-6.50); Neutrophils % (auto) 85.7 %; Platelet Count 301 K/uL (130-400); RDW Coefficient of Variation 13.8 % (11.5-14.5); RDW Standard Deviation 44.7 fL (36.4-46.3); Red Blood Count 4.31 M/uL (4.20-5.40); White Blood Count 8.65 K/ul (4.8-10.8)
[2024-09-08 18:01] LABS: Albumin Globulin Ratio 1.2 (0.9-2); Albumin Level 4.3 gm/dl (3.4-5.0); BUN Creatinine Ratio 20.2 (10-20); Bilirubin,Total 0.4 mg/dl (0.2-1.0); Creatinine Clr Calc Pharmacy 109.8 ml/min; Globulin 3.6 gm/dl (2.5-4.0); Total Protein 7.9 gm/dl (6.0-8.3)
[2024-09-08 18:07] LABS: Troponin I High Sensitivity 4.3 pg/ml (0-14)
--- NOTE | 2024-09-08 18:08 | XRay Report ---
Clinical History: Dyspnea Technique: A frontal view of the chest was obtained Comparison is made to the prior examination dated 08/02/2023 Findings: There is new diffuse interstitial prominence, concerning for mild pulmonary edema. The heart is mildly enlarged. No pleural effusion or pneumothorax is seen. There is no definite pulmonary nodule. No fracture is noted. No foreign body is seen Impression: Mild cardiomegaly and suspected mild pulmonary edema ACT 112: Positive. There are findings on this exam that require communication between the performing entity and the patient following Patient Test Result Information Act ([place] ACT 112) guidelines. Electronically signed by Scottie Gregorio 09-08-2024 6:07 PM
[2024-09-08 18:09] LABS: INR 0.9 (0.9-1.1); Partial Thromboplastin Time 27 Seconds (21-31); Prothrombin Time 10.2 Seconds (9.0-12.0)
[2024-09-08 18:32] LABS: Adenovirus PCR Not Detected (NotDetected); Bordetella parapertussis PCR Not Detected (NotDetected); Bordetella pertussis PCR Not Detected (NotDetected); Chlamydia pneumoniae PCR Not Detected (NotDetected); Coronavirus 229E PCR Not Detected (NotDetected); Coronavirus CoV-2 (COVID19)PCR Not Detected (NotDetected); Coronavirus HKU1 PCR Not Detected (NotDetected); Coronavirus NL63 PCR Not Detected (NotDetected); Coronavirus OC43PCR Not Detected (NotDetected); Human Metapneumovirus PCR Not Detected (NotDetected); Influenza A PCR Not Detected (NotDetected); Influenza B PCR Not Detected (NotDetected); Mycoplasma pneumoniae PCR Not Detected (NotDetected); Parainfluenza Virus 1 PCR Not Detected (NotDetected); Parainfluenza Virus 2 PCR Not Detected (NotDetected); Parainfluenza Virus 3 PCR Not Detected (NotDetected); Parainfluenza Virus 4 PCR Not Detected (NotDetected); Respiratory Syncytial VirusPCR DETECTED (NotDetected); Rhinovirus/Enterovirus PCR Not Detected (NotDetected)
[2024-09-08] MEDS: KETOROLAC TROMETHAMINE 15 MG/ML VIAL IV STA (19:15)
[2024-09-08] MEDS: ACETAMINOPHEN 1,000 MG/100 ML VIAL IV STA (19:17)
--- NOTE | 2024-09-08 19:36 | History & Physical Report ---
Date of Service September 08, 2024 Assessment & Plan (1) Failure of outpatient treatment: (2) Asthma exacerbation: (3) RSV bronchiolitis: (4) SOB (shortness of breath): (5) Obesity: (6) MONIQUE (obstructive sleep apnea): (7) GERD (gastroesophageal reflux disease): (8) Crohn's colitis: Plan RSV | Asthma Exacerbation -Failed outpatient steroid treatment, symptom onset 09/06 -Respiratory biofire positive for RSV. Isolation precautions ordered -Afebrile, no leukocytosis- no evidence of bacterial infection at this time. Repeat CBC and metabolic panel in a.m. -Received 1g IV mag sulfate and 10 IV dexamethasone in ED, no significant change in symptoms -Currently 95% on room air, supplemental oxygen as needed -Guaifenesin with codeine and Tessalon Perles PRN for cough. -Negative troponin on admission. EKG without acute ST changes -Chest x-ray shows cardiomegaly and pulmonary edema. BNP negative -Will trial IV Lasix 40mg, echocardiogram ordered for tomorrow -Will continue with IV dexamethasone for asthma exacerbation, Duonebs QID MONIQUE -CPAP ordered nightly, family to bring in nasal pillow GERD -Continue PPI and famotidine Weight Disorder -Continue Naltrexone/bupropion Anxiety/Depression -Continue Sertraline Crohn's Disease -On [facility] as outpatient Admit to: med/tele Diet: Regular VTE Prophylaxis: Lovenox Code Status: Full Code History of Present Illness Primary Care Provider: Bhavya Israel MD Estefanía Jeronimo is a 44 year-old female who presented to the ED after ongoing shortness of breath despite oral steroid treatment. Medical history is significant for MONIQUE, GERD, asthma, crohn's colitis, anxiety/depression. States that on Wednesday she began to have a cough, shortness of breath, nasal drainage, and headache. Went to urgent care and was given a dose of IV steroids and then started oral prednisone on , no significant change in symptoms. Went to her PCP on Wednesday for same symptoms, was given a Duoneb treatment with no change in symptoms so she was instructed to go to the ED. Reports that her asthma regimen typically includes albuterol inhaler PRN, Airspura, Breo, and duonebs PRN. Had been using duonebs around the clock at home as well without improvement. Notes that she has previously been hospitalized for an asthma exacerbation but it has been many years. Denies fever/body aches. Endorses central chest pain only with coughing. Reports that she has some sputum produced with the cough. States she is not able to lay flat currently as it makes her breathing more difficult. ED Course: -IV mag sulfate, dexamethasone 10mg IV -Chest X-ray -CBC, CMP, BNP. Respiratory biofire Allergies Allergy/AdvReac Type Severity Reaction Status Date / Time wheat Allergy Intermediate stomach Verified 09/08/24 15:23 pains cat dander Allergy Mild sneezing/watery Verified 09/08/24 15:23 eyes dog dander Allergy Mild sneezing/watery Verified 09/08/24 15:23 eyes house dust Allergy Mild sneezing/watery Verified 09/08/24 15:23 eyes mold Allergy Mild sneezing/watery Verified 09/08/24 15:23 eyes pollen extracts Allergy Mild sneezing/watery Verified 09/08/24 15:23 eyes ciprofloxacin AdvReac Severe Anaphylaxis Verified 09/08/24 15:23 moxifloxacin AdvReac Intermediate Vomiting Verified 09/08/24 15:23 Home Medications Medication Instructions Recorded Confirmed Type multivitamin 1 tab PO QAM 11/21/21 09/08/24 History famotidine 40 mg tablet (Pepcid) 40 mg PO BID #180 tabs 03/16/23 09/08/24 Rx ipratropium 0.5 mg-albuterol 3 mg 3 ml inhalation QID PRN wheezing 09/03/23 09/08/24 Rx (2.5 mg base)/3 mL nebulization #90 mL soln albuterol 90 mcg-budesonide 80 2 inh inhalation QID PRN shortness 09/15/23 09/08/24 Rx mcg/actuation HFA aerosol inhaler of breath or wheezing #10.7 grams (Airsupra) fluticasone furoate 100 1 inh inhalation DAILY #60 ea 03/02/24 09/08/24 Rx mcg-vilanterol 25 mcg/dose inhalation powder (Breo Ellipta) montelukast 10 mg tablet 10 mg PO HS #90 tabs 03/02/24 09/08/24 Rx (Singulair) risankizumab-rzaa 360 mg/2.4 mL See Rx Instructions .Route 04/24/24 09/08/24 Rx (150 mg/mL) subcut wearable .COMPLEX #2.4 mL injector (Skyrizi) vitamin D3 125 mcg (5,000 2 cap PO DAILY 04/27/24 09/08/24 History unit)-vitamin K2 100 mcg capsule pantoprazole 40 mg tablet,delayed 40 mg PO BID #180 tabs 05/31/24 09/08/24 Rx release (Protonix) albuterol sulfate 90 mcg/actuation 1 - 2 puff inhalation Q6H PRN 08/25/2408/13 Rx aerosol inhaler Shortness Of Breath #6.7 grams prednisone 20 mg tablet 40 mg (2 x 20 mg) PO DAILY 5 days 09/06/24 09/08/24 Rx #10 tabs bupropion HCl 150 mg tablet,12 hr 150 mg PO BID 09/08/24 09/08/24 History sustained-release (Wellbutrin SR) naltrexone 50 mg tablet 25 mg PO BID 09/08/24 09/08/24 History sertraline 100 mg tablet (Zoloft) 150 mg PO DAILY 09/08/24 09/08/24 History Past Med/Surg History Problem List Failure of outpatient treatment (Acute) Asthma exacerbation (Acute) RSV bronchiolitis (Acute) SOB (shortness of breath) (Acute) Dietary counseling and surveillance Obesity Diarrhea Routine gynecological examination Obesity, morbid, BMI 50 or higher MONIQUE (obstructive sleep apnea) Allergic rhinitis with postnasal drip Exertional shortness of breath Calcific tendinitis of right shoulder GERD (gastroesophageal reflux disease) Intermittent lightheadedness Palpitations Biliary dyskinesia Large hiatal hernia RUQ abdominal tenderness (Acute) "on again off again" Crohn's colitis Chronic head pain Anxiety Anemia (Acute) chronic>being monitored Allergic rhinitis (Chronic) Asthma (Chronic) inhalers/nebulizer prn>last used inhaler March 2023 Chronic reflux esophagitis (Chronic) Chronic sinusitis (Chronic) Depression Allergic reaction (Chronic) Medical History History of depression HILL (dyspnea on exertion) Follows [facility] Pulm Crohn's colitis History of anxiety Asthma Anemia CCP/[place] monitoring History of COVID-19 spring/summer 2021, tested at PCP, not hosp; no taste and smell, "cold" symptoms>resolved. Hiatal hernia History of blood transfusion 2020 Morbid obesity with BMI of 45.0-49.9, adult Hypotension states she normally runs 90s/50s Esophageal reflux Sleep apnea APAP per sleep clinic--cpap per patient Surgical History S/P shoulder surgery Slow to wake up after anesthesia S/P cholecystectomy History of anesthesia reaction Nausea and vomiting after administration of anesthetic agent History of lumpectomy of left breast History of esophagogastroduodenoscopy (EGD) S/P colonoscopy Hx of tubal ligation H/O oophorectomy H/O section H/O: hysterectomy History of appendectomy [place] teeth removed Family History Mother Colon cancer Breast cancer Family history of reaction to anesthesia Father Colon cancer Crohn's disease COPD (chronic obstructive pulmonary disease) Other Arthritis Asthma Atypical chest pain Cancer Chronic cough Hypertension Kidney stone Migraine Denies family history of Ovarian cancer Prostate cancer Myocardial infarction Social History Smoking Status: Never smoker Second Hand Exposure: No; Do You Dip or Chew Tobacco: No; Hx Alcohol Use: Yes Alcohol type: wine Alcohol Intake Frequency: Monthly or Less Hx Substance Use: No Preferred Language: Chinese Communication Ability: Effective Visual Impairment: No Limitations Hearing Ability: Normal 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 Beliefs That Will Affect Care: None marital status: Current Living Situation: Spouse and Family Current Living Situation Comment: Home with and daughter current occupational status: employed current occupation: works at nursing home How many Children do You have: 2 Feels Safe at Home: Yes Childhood Exposure to Second-Hand Smoke: Yes Diet: regular caffeine: Yes during the past year weight has: increased > 10 lbs Dental Care, Regularly: Yes Physical Activity Frequency: 1-2 Times per Week Seatbelt Use: always Sunscreen Use: Yes Do you think of yourself as: straight/heterosexual Assistive Devices: CPAP Review of Systems Review of Systems: As per above Physical Exam Constitutional: WD/WN, vitals as above Eyes: PERRL, conjunctivae normal, anicteric sclerae ENMT: Ears: no external ear abnormality Nose: no external nose abnormality Throat: no posterior oropharynx abnormality Respiratory: Wheezing across lung guerrero, poor air movement throughout Cardiovascular: Rate/Rhythm: regular rate and regular rhythm Extremities: + edema Gastrointestinal (Abdomen): Inspection/Auscultation: abdomen normal to inspection; abdomen not distended Percussion/Palpation: abdomen soft; abdomen nontender and no guarding Musculoskeletal: Moves all limbs independently Skin: no rashes, warm and dry Neurologic: no focal motor deficits Psychiatric: A+Ox3, euthymic affect Results & Data Results & Data Vital Signs (Past 12 Hours) Vital Signs Temp Pulse Pulse Resp BP BP Pulse Ox 09/08/24 19:04 79 09/08/24 19:00 95 09/08/24 18:30 88 18 117/65 96 09/08/24 17:12 93 09/08/24 16:52 37 C 96 H 26 H 132/79 91 O2 Del Method 09/08/24 19:04 09/08/24 19:00 Room Air 09/08/24 18:30 Room Air 09/08/24 17:12 Room Air 09/08/24 16:52 Room Air Diagnostic Findings Chest X-Ray 09/08/24 17:12 Clinical History: Dyspnea Technique: A frontal view of the chest was obtained Comparison is made to the prior examination dated 08/02/2023 Findings: There is new diffuse interstitial prominence, concerning for mild pulmonary edema. The heart is mildly enlarged. No pleural effusion or pneumothorax is seen. There is no definite pulmonary nodule. No fracture is noted. No foreign body is seen Impression: Mild cardiomegaly and suspected mild pulmonary edema ACT 112: Positive. There are findings on this exam that require communication between the performing entity and the patient following Patient Test Result Information Act ([place] ACT 112) guidelines. Electronically signed by Scottie Gregorio 09-08-2024 6:07 PM Supervising Physician Co-Signing Physician Notes Attending addendum: I have physically seen this patient, have supervised the medical residents activities, and agree with the thought: Due to worsening symptoms she presented to the emergency department this evening. With no significant improvement with dexamethasone IV and DuoNebs in the ED significant, [facility]. Acute respiratory failure with hypoxia- Likely combination of RSV, asthma and pulmonary edema. RSV bronchiolitis/asthma exacerbation- Failure of outpatient treatment Dexamethasone 6 mg IV. a.m. DuoNebs QID, andq2h PRN Pulmonary edema- Give furosemide 40 g IV now and QAM The patient will be admitted to telemetry for serial cardiac enzymes, serial EKG's, cardiac rhythm monitoring and a 2-D echocardiogram with Dopplers. MONIQUE-continue CPAP GERD- Continue pantoprazole and famotidine Resident Activity Tracking Resident Involvement: Resident Care Provided Care Provided: Adult Hospital Medicine (2) Asthma exacerbation Asthma persistence: persistent Asthma severity: moderate Qualified Code(s): J45.41 - Moderate persistent asthma with (acute) exacerbation (5) Obesity Body mass index: BMI 50.0-59.9 Obesity classification: adult class 3 (BMI >= 40) Obesity type: due to excess calories Serious obesity comorbidity presence: with serious comorbidity Qualified Code(s): E66.813 - Obesity, class 3; E66.01 - Morbid (severe) obesity due to excess calories; Z68.43 - Body mass index [BMI] 50.0-59.9, adult (7) GERD (gastroesophageal reflux disease) Esophagitis presence: esophagitis presence not specified Qualified Code(s): K21.9 - Gastro-esophageal reflux disease without esophagitis (8) Crohn's colitis Digestive disease complication type: unspecified complication Qualified Code(s): K50.119 - Crohn's disease of large intestine with unspecified complications
[2024-09-08] MEDS ORDERED: ONDANSETRON INJ 2 MG/ML 2 ML VIAL IV PRN (23:10)
[2024-09-08] MEDS ORDERED: NON-FORMULARY MEDICATION (Albuterol-Budesonide [Airsupra] 90-80 mcg/actuation HFA aerosol INH PRN (23:10)
[2024-09-08] MEDS ORDERED: ACETAMINOPHEN 325 MG TAB PO PRN (23:10)
[2024-09-08] MEDS ORDERED: guaiFENesin/CODEINE 100MG/10MG 5ML UDC PO PRN (23:10)
[2024-09-08] MEDS ORDERED: POLYETHYLENE (MIRALAX) 17 GM PACK PO PRN (23:10)
[2024-09-08] MEDS ORDERED: PNEUMOCOCCAL VACCINE (PCV20) 20-VAL CONJ-DIP CRM/PF 0.5 ML SYR IM ONE (23:30)
[2024-09-08] MEDS: BENZONATATE 100 MG CAPSULE PO PRN (23:36)
[2024-09-08] MEDS ORDERED: ALBUTEROL HFA 8 GM INHALER INH PRN (23:36)
[2024-09-08] MEDS: FUROSEMIDE 40 MG/4 ML VIAL IV ONE (23:41)
[2024-09-08] MEDS: ALBUT/IPRATROP 3MG/0.5MG NEB 3 ML VIAL ONE (23:54)
[2024-09-09] MEDS: NALTREXONE HCL 50 MG TAB PO SCH (00:32)
[2024-09-09] MEDS: buPROPion SR 150 MG TABCR PO SCH (00:33)
[2024-09-09] MEDS: FAMOTIDINE 40 MG TABLET PO SCH (00:33)
[2024-09-09] MEDS: PANTOprazole 40 MG TAB PO SCH (00:33)
[2024-09-09] MEDS: guaiFENesin/DEXTROM SYRUP 100MG/10MG 5ML UDC PO PRN (00:34)
[2024-09-09] MEDS: MONTELUKAST SODIUM 10 MG TABLET PO SCH (00:34)
[2024-09-09] MEDS: KETOROLAC TROMETHAMINE 15 MG/ML VIAL IV PRN (03:44)
[2024-09-09 06:18] LABS: Basophils # (auto) 0.01 K/uL (0.00-0.20); Basophils % (auto) 0.1 %; Hematocrit (blood only) 37.1 % (37.0-47.0); Hemoglobin 12.4 g/dl (12.0-16.0); Immature Granulocytes # (auto) 0.05 K/uL (0.01-0.20); Immature Granulocytes % (auto) 0.7 %; Lymphocytes # (auto) 1.12 K/uL (1.20-3.40); Lymphocytes % (auto) 14.6 %; Mean Corpuscular Hemoglobin 29.2 pg (25.0-34.0); Mean Corpuscular Hgb Conc 33.4 g/dL (32.0-36.0); Mean Corpuscular Volume 87.5 fL (80.0-100.0); Mean Platelet Volume 8.9 fL (9.4-12.4); Monocytes # (auto) 0.65 K/uL (0.11-0.59); Monocytes % (auto) 8.5 %; Neutrophils # (auto) 5.86 K/uL (1.40-6.50); Neutrophils % (auto) 76.1 %; Platelet Count 320 K/uL (130-400); RDW Coefficient of Variation 13.9 % (11.5-14.5); Red Blood Count 4.24 M/uL (4.20-5.40); White Blood Count 7.69 K/ul (4.8-10.8)
[2024-09-09 06:28] LABS: Albumin Globulin Ratio 1.3 (0.9-2); Albumin Level 4.2 gm/dl (3.4-5.0); BUN Creatinine Ratio 17.2 (10-20); Bilirubin,Total 0.4 mg/dl (0.2-1.0); Calcium 8.8 mg/dl (8.6-10.3); Creatinine Clr Calc Pharmacy 104.7 ml/min; Globulin 3.2 gm/dl (2.5-4.0); Potassium 3.7 mmol/L (3.5-5.1); Total Protein 7.4 gm/dl (6.0-8.3)
[2024-09-09] MEDS: ALBUT/IPRATROP 3MG/0.5MG NEB 3 ML VIAL NEB SCH (07:12)
[2024-09-09] MEDS: dexAMETHasone 10 MG in SYRINGE 0 ML IV SCH (08:21)
[2024-09-09] MEDS: ENOXAPARIN INJ 40 MG/0.4 ML SYR SQ SCH (08:22)
[2024-09-09] MEDS: FLUTICASONE/VILANTEROL 100/25MCG 14 PUFFS/INHALER INH SCH (08:22)
[2024-09-09] MEDS: SERTRALINE HCL 50 MG TABLET PO SCH (08:22)
[2024-09-09] MEDS: CETIRIZINE HCL 10 MG TABLET PO SCH (10:37)
[2024-09-09] MEDS: PERFLUTREN LIPID MICROSPHERE (DEFINITY) IV ONE (10:49)
--- NOTE | 2024-09-09 12:23 | Electrocardiogram Report ---
Test Reason : Blood Pressure : */* mmHG Vent. Rate : 81 BPM Atrial Rate : 81 BPM P-R Int : 156 ms QRS Dur : 104 ms QT Int : 386 ms P-R-T Axes : 42 -22 26 degrees QTcB Int : 448 ms Normal sinus rhythm with sinus arrhythmia RSR' or QR pattern in V1 suggests right ventricular conduction delay Leftward axis nondiagnostic lateral Q waves Abnormal ECG When compared with ECG of 20-Aug-2022 11:48, Leftward axis is new RSR' pattern in V1 is new Confirmed by Carly Washburn (Gisela) on 09/09/2024 12:23:27 PM Referred By: Confirmed By: Carly Washburn
--- NOTE | 2024-09-09 13:59 | Hospitalist Progress Note ---
"Date of Service September 09, 2024 Assessment & Plan (1) Failure of outpatient treatment: (2) Asthma exacerbation: (3) RSV bronchiolitis: (4) SOB (shortness of breath): (5) Obesity: Plan: morbid - BMI 58 (6) MONIQUE (obstructive sleep apnea): (7) GERD (gastroesophageal reflux disease): (8) Crohn's colitis: Plan Estefanía is a 44-year-old female with a past medical history of MONIQUE on CPAP, GERD, anxiety and depression, Crohn's disease and asthma who presents with continued asthma exacerbation with symptom onset 09/06 that has not responded to outpatient steroids and nebulizer treatments. Initial workup revealed positive for RSV RSV | Asthma Exacerbation No evidence of bacterial coinfection at this time. Continue IV dexamethasone, scheduled nebs, home inhalers and montelukast Add Zyrtec twice a day Supportive care: Mucinex with codeine, Tessalon Perles, flutter valve Chest x-ray shows cardiomegaly and pulmonary edema. BNP negative. given IV Lasix 40 mg x 1, patient did not noticed difference in output. No lower extremity edema. Echo pending MONIQUE -continue CPAP GERD -Continue PPI and famotidine Weight Disorder -Continue Naltrexone/bupropion Anxiety/Depression -Continue Sertraline Crohn's Disease -On Skyrizi as outpatient dispo: continued inpatient stay, stable for downgrade to medical DVT proh: encourage ambulation Admission and Anticipated Discharge Date Admission Date: September 08, 2024 Supervising Physician Co-Signing Physician Notes Attending Attestation - Chart reviewed, care plan d/w ANDRES Thomas. I agree w/ the sullivan components of her documentation with the following addition- * morbid obesity - BMI 58 Echo results noted (normal EF, normal LV wall motion, normal valve function) Mak Willis MD Subjective patient seen earlier this morning sitting up in bed. Reports that this infection has really taken a toll on her. Feeling maybe slightly better than when she came in but not nearly ready to go home Given IV Lasix last night does not feel like she is peeing more often than her baseline. Starting to produce sputum would not be able to bring up Normally takes store brand Zyrtec once a day tele SR 60-90s, gets to the 100s with activity Review of Systems Review of Systems: All systems reviewed & are unremarkable except as noted in Subjective Physical Exam Physical Exam: General: NAD, VS as above Resp: does get conversationally dyspneic with prolonged conversation, rhonchi throughout all lung guerrero CV: RRR, no murmur, Abd: normal bowel sounds, non tender, no hepatosplenomegaly Extremities: Moves all extremities, no pitting lower extremity edema Neuro: A&O x3, Skin: intact, no lesions noted Results & Data Results & Data Vital Signs (Past 12 Hours) Vital Signs Temp Pulse Pulse Resp BP Pulse Ox O2 Del Method 09/09/24 11:30 98.2 F 73 20 123/77 96 Room Air 09/09/24 11:15 80 18 96 Room Air 09/09/24 09:09 92 H 09/09/24 08:10 97.9 F 93 H 20 126/82 92 Room Air 09/09/24 07:41 Room Air 09/09/24 07:12 72 16 98 Room Air 09/09/24 03:34 97.5 F L 77 20 138/81 95 Room Air Laboratory Results CBC and chemistry reviewed BioFire reviewed PG Care Time/CCT Total # of Minutes Spent Total Time Spent with Patient: Total time spent is greater than 50% in coordination of care (as documented) at patient's floor/unit and/or counseling patient: Coding Level of Care Code 41882 SUB INP/OBS CARE 3/50MIN Diagnoses Failure of outpatient treatment Z78.9 Asthma exacerbation J45.41 Asthma persistence: persistent Asthma severity: moderate RSV bronchiolitis J21.0 SOB (shortness of breath) R06.02 Class 3 severe obesity due to excess calories with serious comorbidity and body mass index (BMI) of 50.0 to 59.9 in adult E66.813; E66.01; Z68.43 Body mass index: BMI 50.0-59.9 Obesity classification: adult class 3 (BMI >= 40) Obesity type: due to excess calories Serious obesity comorbidity presence: with serious comorbidity MONIQUE (obstructive sleep apnea) G47.33 Gastroesophageal reflux disease, unspecified whether esophagitis present K21.9 Esophagitis presence: esophagitis presence not specified Crohn's disease of colon with complication K50.119 Digestive disease complication type: unspecified complication (2) Asthma exacerbation Asthma persistence: persistent Asthma severity: moderate Qualified Code(s): J45.41 - Moderate persistent asthma with (acute) exacerbation (5) Obesity Body mass index: BMI 50.0-59.9 Obesity classification: adult class 3 (BMI >= 40) Obesity type: due to excess calories Serious obesity comorbidity presence: with serious comorbidity Qualified Code(s): E66.813 - Obesity, class 3; E66.01 - Morbid (severe) obesity due to excess calories; Z68.43 - Body mass index [BMI] 50.0-59.9, adult (7) GERD (gastroesophageal reflux disease) Esophagitis presence: esophagitis presence not specified Qualified Code(s): K21.9 - Gastro-esophageal reflux disease without esophagitis (8) Crohn's colitis Digestive disease complication type: unspecified complication Qualified Code(s): K50.119 - Crohn's disease of large intestine with unspecified c omplications"
--- NOTE | 2024-09-09 19:42 | Billing Data ---
Date of Service September 09, 2024 Coding Level of Care Code 00882 INT INP/OBS CARE
[2024-09-10 00:34] VITALS: TEMP 97.9
[2024-09-10 07:55] VITALS: BP 116/80
[2024-09-10] MEDS: SODIUM CHLOR 7% 4 ML NEB NEB STA (10:09)
[2024-09-10 10:12] VITALS: PULSE 88; RESP 20; O2SAT 95
--- NOTE | 2024-09-10 12:32 | Discharge Summary ---
"Discharge Summary Date of Service September 10, 2024 Principal Dx & Hospital Course #1 = Principal Diagnosis (1) Failure of outpatient treatment: (2) Asthma exacerbation: (3) RSV bronchiolitis: (4) SOB (shortness of breath): (5) Obesity: (6) MONIQUE (obstructive sleep apnea): (7) GERD (gastroesophageal reflux disease): (8) Crohn's colitis: Plan RSV | Asthma Exacerbation Estefanía is a 44-year-old female with a past medical history of MONIQUE on CPAP, GERD, anxiety and depression, Crohn's disease and asthma who presents with continued asthma exacerbation with symptom onset 09/06 that has not responded to outpatient steroids and nebulizer treatments. Initial workup revealed positive for RSV, no evidence of bacterial coinfection. Improved with IV dexamethasone and scheduled nebs. Discharged with PO dexamethasone taper, albuterol nebs, hypertonic saline nebs, home inhalers (re-presribed Breo as she stated she wasnt taking this at home). Continue montelukast, allergy medicine BID, cough medications and flutter valve. On admisson cxr with cardiomegaly and pulmonary edema. BNP negative. given IV Lasix 40 mg x 1, patient did not noticed difference in output. No lower extremity edema. Echo without signs of CHF. MONIQUE-continue CPAP GERD-Continue PPI and famotidine obesity | Weight Disorder-Continue Naltrexone/bupropion. BMI 58 Anxiety/Depression -Continue Sertraline Crohn's Disease -On [facility] as outpatient Dispo: discharge to home today Notes For Next Care Provider patient has not been using her Breo inhaler at home Medication Changes From Visit Breo re-prescribed Dexamethasone taper Hypertonic saline nebs as needed Admission HPI Per Admitting Provider Estefanía Jeronimo is a 44 year-old female who presented to the ED after ongoing shortness of breath despite oral steroid treatment. Medical history is significant for MONIQUE, GERD, asthma, crohn's colitis, anxiety/depression. States that on Wednesday she began to have a cough, shortness of breath, nasal drainage, and headache. Went to urgent care and was given a dose of IV steroids and then started oral prednisone on , no significant change in symptoms. Went to her PCP on Wednesday for same symptoms, was given a Duoneb treatment with no change in symptoms so she was instructed to go to the ED. Reports that her asthma regimen typically includes albuterol inhaler PRN, Airspura, Breo, and duonebs PRN. Had been using duonebs around the clock at home as well without improvement. Notes that she has previously been hospitalized for an asthma exacerbation but it has been many years. Denies fever/body aches. Endorses central chest pain only with coughing. Reports that she has some sputum produced with the cough. States she is not able to lay flat currently as it makes her breathing more difficult. ED Course: -IV mag sulfate, dexamethasone 10mg IV -Chest X-ray -CBC, CMP, BNP. 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 On room air. No wheezing CV: RRR, no murmur, Abd: normal bowel sounds, non tender, no hepatosplenomegaly Extremities: Moves all extremities, no pitting lower extremity edema Neuro: A&O x3, Skin: intact, no lesions noted Discharge Plan Discharge Items Patient Disposition: Home - Self-Care Reason For Visit: RSV/ASTHMA EXACERBATION Discharge Diagnosis: RSV/Asthma exacerbation Condition on Discharge: Fair Activity: Resume your previous activity Weightbearing: Full weightbearing Non-emergency contact: Primary Care Provider Call non-emergency contact if: you have any medication questions, your symptoms worsen and your temperature is above 101 Follow-up/Referrals: Bhavya Israel MD [Primary Care Provider] - 09/18/24 11:00 am (follow up within 7-10 days; appt is with PA.) Diet: Regular Addtl Attending Provider Instructions: Ms. Jeronimo, You were hospitalized after having worsening shortness of breath. You were found to have RSV exacerbating your underlying asthma. You were treated with nebulizer treatments, IV steroids, allergy medicine and cough medicine with improvement. You also had a cardiac workup that did not show any signs of heart failure. Recommendations: - Continue dexamethasone taper as prescribed, next dose AM 09/10 - Continue to take your allergy medicine (zyrtec) twice a day untily ou feel well - Continue the Airspura as needed as prescribed. This contains albuterol and budesonide which is in an inhaler corticosteroid. Make sure you are swishing and spitting after using. Because this contains albuterol, do not use your albuterol inhaler at the same time. - The Breo you received has been previously prescribed for you. I have sent this in again, for you to continue using this daily. - I have sent in saline nebulizer treatments that you can use after the alb uterol to help promote suptum production. - Continue use your flutter valve at home to help bring up the sputum. - Continue to use your CPAP machine - if you have received new parts from the insurance company, please make sure you are changing these out and making sure you are keeping your machine clean. - Avoid other triggers for your allergens/lungs like smoking, pets, etc. - There is cough medicine and cough syrup at that the pharmacy you can use - Can you use tylenol and ibuprofen as needed for pain. There are some tab of toradol you can use at home. Do not take this at the same time as ibuprofen, aleve or naproxen. Please follow up with your PCP within one week. You can do normal everyday activities as your body allows. Take rest breaks if you feel tired. Do not overexert. Stop activity if you have pain, shortness of breath or feel dizzy. CONTACT YOUR PRIMARY CARE PROVIDER if you experience any of the following: Shortness of breath or difficulty breathing Fevers or chills Feeling tired with normal activity or experiencing dizziness or fainting Difficulty following your treatment plan, or difficulty taking medications CALL 911 OR GO TO THE EMERGENCY DEPARTMENT if you experience any of the following: Severe abdominal pain or nausea/vomiting Severe chest pain, or chest pain that radiates (moves) to your jaw or arm Sudden, severe shortness of breath or difficulty breathing Thank you for allowing us to participate in your care. Pending Studies at Discharge: No Stand-Alone Forms: [facility], Work/School Release, Smoking Cessation Medications and DC Order Prescriptions: New dextromethorphan-guaifenesin 10-100 mg/5 mL Syrup 5 ml PO Q6H PRN (Reason: cough) Qty: 150 0RF benzonatate 100 mg Capsule 100 mg PO Q8H PRN (Reason: cough) Qty: 12 0RF dexamethasone 2 mg tablet See Taper PO DAILY Qty: 18 0RF Taper: Taper, Blank 6 mg DAILY for 3 Days 4 mg DAILY for 3 Days 2 mg DAILY for 3 Days Rx Instructions: start taper 09/11 sodium chloride 7 % solution for nebulization 1 inh inhalation BID 7 Days Qty: 56 0RF ketorolac 10 mg tablet 10 mg PO Q8H 2 Days Qty: 6 0RF Continued Airsupra 90-80 mcg/actuation HFA aerosol inhaler 2 inh inhalation QID PRN (Reason: shortness of breath or wheezing) Qty: 10.7 4RF Skyrizi 360 mg/2.4 mL (150 mg/mL) wearable injector See Rx Instructions .ROUTE .COMPLEX Qty: 2.4 6RF Dose Instruction: INSERT 1 CARTRIDGE INTO ON-BODY INJECTOR AND INJECT 360 MG UNDER THE SKIN EVERY 8 WEEKS. Rx Instructions: INSERT 1 CARTRIDGE INTO ON-BODY INJECTOR AND INJECT 360 MG UNDER THE SKIN EVERY 8 WEEKS. pantoprazole [Protonix] 40 mg tablet,delayed release (DR/EC) 40 mg PO BID Qty: 180 3RF albuterol sulfate 90 mcg/actuation HFA aerosol inhaler 1 - 2 puff INHALATION Q6H PRN (Reason: Shortness Of Breath) Qty: 6.7 3RF famotidine [Pepcid] 40 mg tablet 40 mg PO BID Qty: 180 3RF vitamin D3-vitamin K2 125 mcg (5,000 unit)-100 mcg capsule 2 cap PO DAILY montelukast [Singulair] 10 mg tablet 10 mg PO HS Qty: 90 1RF multivitamin Tablet 1 tab PO QAM bupropion HCl [Wellbutrin SR] 150 mg tablet sustained-release 12 hr 150 mg PO BID naltrexone 50 mg tablet 25 mg PO BID sertraline [Zoloft] 100 mg tablet 150 mg PO DAILY Patient Comments: qam ipratropium-albuterol 0.5 mg-3 mg(2.5 mg base)/3 mL solution for nebulization 3 ml inhalation QID PRN (Reason: wheezing) Qty: 90 0RF fluticasone furoate-vilanterol [Breo Ellipta] 100-25 mcg/dose blister with device 1 inh inhalation DAILY Qty: 60 0RF Discontinued prednisone 20 mg tablet 40 mg PO DAILY 5 Days Qty: 10 0RF Discharge Orders: Discharge Order (Routine); Ordered 09/10/24 Ordered By: Ashlie Thomas Admission Data Admit Date/Time: 09/08/24 20:11 Attending Provider: Mak Willis Admit Provider: Yani Nolen Primary Care Provider: Bhavya Israel Other Providers: Duke Morales Other Interventions: Discharge Summary Assessment (RN) Last Done: 09/10/24 11:33 Hospital Stay Data Consultations 09/08/24 19:20 ED Decision to Admit Stat Diagnostic Imagining Performed Chest X-Ray 09/08/24 17:12 Clinical History: Dyspnea Technique: A frontal view of the chest was obtained Comparison is made to the prior examination dated 08/02/2023 Findings: There is new diffuse interstitial prominence, concerning for mild pulmonary edema. The heart is mildly enlarged. No pleural effusion or pneumothorax is seen. There is no definite pulmonary nodule. No fracture is noted. No foreign body is seen Impression: Mild cardiomegaly and suspected mild pulmonary edema ACT 112: Positive. There are findings on this exam that require communication between the performing entity and the patient following Patient Test Result Information Act ([place] ACT 112) guidelines. Electronically signed by Scottie Gregorio 09-08-2024 6:07 PM Pending Results Patient Have Any Pending Studies at Discharge: No Discharge Instructions Given to Patient (Per Discharging Provider) Ms. Jeronimo, You were hospitalized after having worsening shortness of breath. You were found to have RSV exacerbating your underlying asthma. You were treated with nebulizer treatments, IV steroids, allergy medicine and cough medicine with improvement. You also had a cardiac workup that did not show any signs of heart failure. Recommendations: - Continue dexamethasone taper as prescribed, next dose AM 09/10 - Continue to take your allergy medicine (zyrtec) twice a day untily ou feel well - Continue the Airspura as needed as prescribed. This contains albuterol and budesonide which is in an inhaler corticosteroid. Make sure you are swishing and spitting after using. Because this contains albuterol, do not use your albuterol inhaler at the same time. - The Breo you received has been previously prescribed for you. I have sent this in again, for you to continue using this daily. - I have sent in saline nebulizer treatments that you can use after the albuterol to help promote suptum production. - Continue use your flutter valve at home to help bring up the sputum. - Continue to use your CPAP machine - if you have received new parts from the insurance company, please make sure you are changing these out and making sure you are keeping your machine clean. - Avoid other triggers for your allergens/lungs like smoking, pets, etc. - There is cough medicine and cough syrup at that the pharmacy you can use - Can you use tylenol and ibuprofen as needed for pain. There are some tab of toradol you can use at home. Do not take this at the same time as ibuprofen, aleve or naproxen. Please follow up with your PCP within one week. You can do normal everyday activities as your body allows. Take rest breaks if you feel tired. Do not overexert. Stop activity if you have pain, shortness of breath or feel dizzy. CONTACT YOUR PRIMARY CARE PROVIDER if you experience any of the following: Shortness of breath or difficulty breathing Fevers or chills Feeling tired with normal activity or experiencing dizziness or fainting Difficulty following your treatment plan, or difficulty taking medications CALL 911 OR GO TO THE EMERGENCY DEPARTMENT if you experience any of the following: Severe abdominal pain or nausea/vomiting Severe chest pain, or chest pain that radiates (moves) to your jaw or arm Sudden, severe shortness of breath or difficulty breathing Thank you for allowing us to participate in your care. Total Time Total Time Spent Total Time Spent (In Minutes): Time spent day of discharge 32 minutes including direct patient care, medication reconciliation, documentation, review of labs and images, and coordination of care. Coding Level of Care Code 32829 INP/OBS DISCH >30 MIN Diagnoses Failure of outpatient treatment Z78.9 Asthma exacerbation J45.41 Asthma persistence: persistent Asthma severity: moderate RSV bronchiolitis J21.0 SOB (shortness of breath) R06.02 Class 3 severe obesity due to excess calories with serious comorbidity and body mass index (BMI) of 50.0 to 59.9 in adult E66.813; E66.01; Z68.43 Obesity type: due to excess calories Obesity classification: adult class 3 (BMI >= 40) Serious obesity comorbidity presence: with serious comorbidity Body mass index: BMI 50.0-59.9 MONIQUE (obstructive sleep apnea) G47.33 Gastroesophageal reflux disease, unspecified whether esophagitis present K21.9 Esophagitis presence: esophagitis presence not specified Crohn's disease of colon with complication K50.119 Digestive disease complication type: unspecified complication"
== END 2024-09-10 13:22 | disposition home or self-care (01) | DRG 202 ==
LOC: SUATTDRO → ED 16:34 → 2W 20:11 → SUATTDRO 20:11 → 2W 22:42

== ENCOUNTER 2024-09-14 13:04 | Inpatient (IN) ==
[2024-09-14 13:54] LABS: Basophils # (auto) 0.05 K/uL (0.00-0.20); Basophils % (auto) 0.4 %; Eosinophils % (auto) 0.8 %; Hematocrit (blood only) 40.6 % (37.0-47.0); Hemoglobin 13.4 g/dl (12.0-16.0); Immature Granulocytes # (auto) 0.16 K/uL (0.01-0.20); Immature Granulocytes % (auto) 1.3 %; Lymphocytes # (auto) 3.35 K/uL (1.20-3.40); Lymphocytes % (auto) 27.6 %; Mean Corpuscular Hemoglobin 28.8 pg (25.0-34.0); Mean Corpuscular Volume 87.1 fL (80.0-100.0); Mean Platelet Volume 8.8 fL (9.4-12.4); Monocytes % (auto) 6.6 %; Neutrophils # (auto) 7.68 K/uL (1.40-6.50); Neutrophils % (auto) 63.3 %; Platelet Count 381 K/uL (130-400); RDW Coefficient of Variation 13.4 % (11.5-14.5); RDW Standard Deviation 42.5 fL (36.4-46.3); Red Blood Count 4.66 M/uL (4.20-5.40); White Blood Count 12.14 K/ul (4.8-10.8)
[2024-09-14 14:11] LABS: Albumin Globulin Ratio 1.1 (0.9-2); BUN Creatinine Ratio 15.2 (10-20); Bilirubin,Total 0.4 mg/dl (0.2-1.0); Calcium 9.5 mg/dl (8.6-10.3); Creatinine Clr Calc Pharmacy 105.1 ml/min; Globulin 3.8 gm/dl (2.5-4.0); Potassium 3.9 mmol/L (3.5-5.1); Total Protein 7.8 gm/dl (6.0-8.3)
[2024-09-14 14:17] LABS: Troponin I High Sensitivity 3.7 pg/ml (0-14)
--- NOTE | 2024-09-14 14:19 | XRay Report ---
XR chest 1V not portable CLINICAL HISTORY: Chest pain, nonspecific COMPARISON STUDY: 09/08/2024 FINDINGS: No significant interval changes are noted. There is mild cardiomegaly. Pulmonary vascularit y is unremarkable. There is no focal airspace opacity, pneumothorax, pleural effusion, or atelectasis . IMPRESSION: Stable exam; no acute process ACT 112: Negative or not required by law. Electronically signed by: Jemima Nolasco M.D. 09/14/2024 2:18 PM
[2024-09-14 14:20] LABS: INR 0.9 (0.9-1.1); Partial Thromboplastin Time 26 Seconds (21-31); Prothrombin Time 9.8 Seconds (9.0-12.0)
--- NOTE | 2024-09-14 14:25 | Emergency Department Note ---
Impression & Plan SOB (shortness of breath), Asthma exacerbation, Failure of outpatient treatment, RSV (respiratory syncytial virus infection) ED Provider Note NAME: SHANA TATE AGE: 44 SEX: F : 1980 ARRIVES VIA: Walk-In INFORMANT: [Patient] ED PROVIDER(S): [Carlos Garcia MD] CHIEF COMPLAINT: Chest pain, short of breath HISTORY OF PRESENT ILLNESS: The patient is a 44-year-old female who was discharged from our hospital 4 days ago. She was in for an asthma flare as a result of RSV. She left the hospital on nebulizers every 4 hours and a steroid prescription. The patient saw her doctor's office today and was referred to the ER as she is no better since being discharged. She is still quite short of breath. She has coughed up some bloody sputum, she has pain across the upper shoulder blades. No fever. She was sent with concerns for failed outpatient management coupled with the possibility of PE. PMHx/PSHx/Social Hx: See Below PHYSICAL EXAM: GENERAL: Patient is in no acute distress. HEENT: No acute trauma, normocephalic atraumatic, mucous membranes moist, no nasal congestion. NECK: No stridor, no adenopathy, no meningismus, trachea is midline. LUNGS: Wheezing bilaterally with diminished breath sounds bilaterally. No obvious respiratory distress. HEART: Without murmurs gallops or rubs, regular rate and rhythm. ABDOMEN: Soft, nontender, no peritonitis. EXTREMITIES: No cyanosis, full range of motion of all the joints without pain or difficulty. NEUROLOGIC: Oriented x 3, no acute motor or sensory deficits, no focal weakness. SKIN: No jaundice, no diaphoresis. DIFFERENTIAL DIAGNOSIS: Bronchitis or pneumonia, PE, failed outpatient management, asthma flare, RSV bronchiolitis, among others. EMERGENCY DEPARTMENT PROCEDURES: MEDICAL DECISION MAKING: There is a mild leukocytosis, this could be consistent with infection or the stress of her presentation. She is currently on steroids and the white count elevation may be from the steroids themselves. There is no anemia. There is a normal platelet count. No coagulopathy. There is no renal failure or significant electrolyte abnormality. There is no concerning liver enzyme elevation. ECG shows a sinus rhythm, no ischemia. Cardiac enzyme testing x 1 is not consistent with acute cardiac injury. Chest x-ray does not show CHF or pneumonia. Chest CT does not show PE or pneumonia. On exam, the patient was wheezing with diminished breath sounds bilaterally. Patient received a DuoNeb, a second DuoNeb was ordered. She was given IV Solu- Medrol. Patient has failed outpatient management for her RSV with asthma flare. She is dyspneic despite medications prescribed at discharge several days ago. Repeat hospitalization was warranted. She may benefit from a pulmonary consult. I did speak with the patient and case management, the on-call hospitalist was consulted. Prior/Outside records/notes reviewed: Discharge summary note from 09/10/2024 discussing her presentation, hospital course and plan at discharge. ECG per my interpretation: Indication was shortness of breath and chest pain. The ECG shows a normal sinus rhythm with a rate of 92. There is no acute ST elevation, no PVCs. The QTc is 442. Continuous Cardiac Monitoring per my interpretation: An order was placed for continuous cardiac monitoring. The monitor shows a rate of 93 with normal sinus rhythm. Imaging/x-ray results per my interpretation: Chest x-ray does not show pneumonia or CHF. There was no significant cardiomegaly Chronic Medical/Social conditions affecting care: History of asthma, recent hospitalization. Care/Management discussed with: Case management, the on-call hospitalist. Level of care consideration(s): After review of the information above and other included data: --I believe the patient requires escalation of care to admission DISPOSITION: Admission Past Med/Surg History Problem List (Updated 09/14/24 @ 16:54 by Carlos Garcia MD) RSV (respiratory syncytial virus infection) (Acute) Failure of outpatient treatment (Acute) Asthma exacerbation (Acute) SOB (shortness of breath) (Acute) Failure of outpatient treatment (Acute) Asthma exacerbation (Acute) RSV bronchiolitis (Acute) SOB (shortness of breath) (Acute) Dietary counseling and surveillance Obesity Diarrhea Routine gynecological examination Obesity, morbid, BMI 50 or higher MONIQUE (obstructive sleep apnea) Allergic rhinitis with postnasal drip Exertional shortness of breath Calcific tendinitis of right shoulder GERD (gastroesophageal reflux disease) Intermittent lightheadedness Palpitations Biliary dyskinesia Large hiatal hernia RUQ abdominal tenderness (Acute) "on again off again" Crohn's colitis Chronic head pain Anxiety Anemia (Acute) chronic>being monitored Asthma (Chronic) inhalers/nebulizer prn>last used inhaler March 2023 Chronic reflux esophagitis (Chronic) Chronic sinusitis (Chronic) Depression Medical History History of depression HILL (dyspnea on exertion) Follows [facility]m Crohn's colitis History of anxiety Asthma Anemia [facility]/[place] monitoring History of COVID-19 spring/summer 2021, tested at PCP, not hosp; no taste and smell, "cold" symptoms>resolved. Hiatal hernia History of blood transfusion 2020 Morbid obesity with BMI of 45.0-49.9, adult Hypotension states she normally runs 90s/50s Esophageal reflux Sleep apnea APAP per sleep clinic--cpap per patient Surgical History S/P shoulder surgery Slow to wake up after anesthesia S/P cholecystectomy History of anesthesia reaction Nausea and vomiting after administration of anesthetic agent History of lumpectomy of left breast History of esophagogastroduodenoscopy (EGD) S/P colonoscopy Hx of tubal ligation H/O oophorectomy H/O section H/O: hysterectomy History of appendectomy Mullens teeth removed Family History Mother Colon cancer Breast cancer Family history of reaction to anesthesia Father Colon cancer Crohn's disease COPD (chronic obstructive pulmonary disease) Other Arthritis Asthma Atypical chest pain Cancer Chronic cough Hypertension Kidney stone Migraine Denies family history of Ovarian cancer Prostate cancer Myocardial infarction Social History Smoking Status: Never smoker Second Hand Exposure: No; Do You Dip or Chew Tobacco: No; Hx Alcohol Use: Yes Alcohol type: wine Alcohol Intake Frequency: Monthly or Less Hx Substance Use: No Preferred Language: Tajik Communication Ability: Effective Visual Impairment: No Limitations Hearing Ability: Normal Purchasing Buyer Required: No Beliefs That Will Affect Care: None marital status: Current Living Situation: Spouse and Family Current Living Situation Comment: Home with and daughter current occupational status: employed current occupation: works at [employer] How many Children do You have: 2 Feels Safe at Home: Yes Childhood Exposure to Second-Hand Smoke: Yes Diet: regular caffeine: Yes during the past year weight has: increased > 10 lbs Dental Care, Regularly: Yes Physical Activity Frequency: 1-2 Times per Week Seatbelt Use: always Sunscreen Use: Yes Do you think of yourself as: straight/heterosexual Assistive Devices: CPAP Allergies Allergies Allergy/AdvReac Type Severity Reaction Status Date / Time wheat Allergy Intermediate stomach Verified 09/14/24 07:49 pains cat dander Allergy Mild sneezing/watery Verified 09/14/24 07:49 eyes dog dander Allergy Mild sneezing/watery Verified 09/14/24 07:49 eyes house dust Allergy Mild sneezing/watery Verified 09/14/24 07:49 eyes mold Allergy Mild sneezing/watery Verified 09/14/24 07:49 eyes pollen extracts Allergy Mild sneezing/watery Verified 09/14/24 07:49 eyes ciprofloxacin AdvReac Severe Anaphylaxis Verified 09/14/24 07:49 moxifloxacin AdvReac Intermediate Vomiting Verified 09/14/24 07:49 Home Meds Home Medications Medication Instructions Recorded Confirmed multivitamin 1 tab PO QAM 11/21/21 09/14/24 vitamin D3 125 mcg (5,000 2 cap PO DAILY 04/27/24 09/14/24 unit)-vitamin K2 100 mcg capsule bupropion HCl 150 mg tablet,12 hr 150 mg PO BID 09/08/24 09/14/24 sustained-release (Wellbutrin SR) naltrexone 50 mg tablet 25 mg PO BID 09/08/24 09/14/24 sertraline 100 mg tablet (Zoloft) 150 mg PO DAILY 09/08/24 09/14/24 Previous Rx's Medication Instructions Recorded famotidine 40 mg tablet (Pepcid) 40 mg PO BID #180 tabs 03/16/23 albuterol 90 mcg-budesonide 80 2 inh inhalation QID PRN shortness 09/15/23 mcg/actuation HFA aerosol inhaler of breath or wheezing #10.7 grams (Airsupra) montelukast 10 mg tablet 10 mg PO HS #90 tabs 03/02/24 (Singulair) risankizumab-rzaa 360 mg/2.4 mL See Rx Instructions .Route 04/24/24 (150 mg/mL) subcut wearable .COMPLEX #2.4 mL injector (Skyrizi) pantoprazole 40 mg tablet,delayed 40 mg PO BID #180 tabs 12/18/24 release (Protonix) albuterol sulfate 90 mcg/actuation 1 - 2 puff inhalation Q6H PRN 08/25/24 aerosol inhaler Shortness Of Breath #6.7 grams dexamethasone 2 mg tablet See Taper PO DAILY #18 tabs 09/10/24 dextromethorphan-guaifenesin 10 5 ml PO Q6H PRN cough #150 mL 09/10/24 mg-100 mg/5 mL oral syrup fluticasone furoate 100 1 inh inhalation DAILY #60 ea 09/10/24 mcg-vilanterol 25 mcg/dose inhalation powder (Breo Ellipta) ipratropium 0.5 mg-albuterol 3 mg 3 ml inhalation QID PRN wheezing 09/10/24 (2.5 mg base)/3 mL nebulization #90 mL soln sodium chloride 7 % for 1 inh inhalation BID 7 days #56 mL 09/10/24 nebulization benzonatate 100 mg capsule 100 mg PO Q8H PRN cough #12 caps 09/14/24 Results & Data (ED) Vital Signs Vital Signs - 24 hr 09/14/24 13:06 09/14/24 14:23 09/14/24 14:29 Temperature 36.7 C Temperature Source Temporal Artery Scan Pulse Rate 93 H 92 H Pulse Rate [Apical] Pulse Rate from SpO2 Sensor Pulse Rhythm [Apical] Pulse Strength Normal Respiratory Rate 22 Respiratory Effort / Characteristics Non-Labored Spontaneous Respiratory Depth Normal Respiratory Pattern Regular Blood Pressure 133/82 108/70 Blood Pressure [Left Arm] Blood Pressure Mean 99 90 Blood Pressure Mean [Left Arm] Blood Pressure Position Sitting Pulse Oximetry 96 Oxygen Delivery Method Room Air Sepsis Recent Fever Within 48 Hours No Sepsis New/Unexplained Change in Mental Status No Sepsis Action Taken by Nursing No Action Required 09/14/24 14:33 09/14/24 14:36 09/14/24 14:36 Temperature Temperature Source Pulse Rate 88 Pulse Rate [Apical] 90 Pulse Rate from SpO2 Sensor 87 Pulse Rhythm [Apical] Regular Pulse Strength Respiratory Rate 22 18 Respiratory Effort / Characteristics Respiratory Depth Respiratory Pattern Blood Pressure Blood Pressure [Left Arm] 108/70 Blood Pressure Mean Blood Pressure Mean [Left Arm] 82 Blood Pressure Position Pulse Oximetry 96 100 Oxygen Delivery Method Room Air Room Air Room Air Sepsis Recent Fever Within 48 Hours Sepsis New/Unexplained Change in Mental Status Sepsis Action Taken by Nursing 09/14/24 14:36 09/14/24 15:06 09/14/24 15:30 Temperature Temperature Source Pulse Rate 98 H Pulse Rate [Apical] Pulse Rate from SpO2 Sensor 93 H Pulse Rhythm [Apical] Pulse Strength Respiratory Rate 18 22 18 Respiratory Effort / Characteristics Respiratory Depth Respiratory Pattern Blood Pressure 121/78 124/69 Blood Pressure [Left Arm] Blood Pressure Mean 92 81 Blood Pressure Mean [Left Arm] Blood Pressure Position Pulse Oximetry 100 95 94 Oxygen Delivery Method Room Air Room Air Sepsis Recent Fever Within 48 Hours Sepsis New/Unexplained Change in Mental Status Sepsis Action Taken by Nursing 09/14/24 16:00 09/14/24 16:00 09/14/24 16:31 Temperature Temperature Source Pulse Rate 88 Pulse Rate [Apical] Pulse Rate from SpO2 Sensor 98 H 91 H Pulse Rhythm [Apical] Pulse Strength Respiratory Rate 26 H 18 22 Respiratory Effort / Characteristics Respiratory Depth Respiratory Pattern Blood Pressure 106/78 106/78 122/85 Blood Pressure [Left Arm] Blood Pressure Mean 96 96 102 Blood Pressure Mean [Left Arm] Blood Pressure Position Pulse Oximetry 93 94 93 Oxygen Delivery Method Room Air Room Air Room Air Sepsis Recent Fever Within 48 Hours Sepsis New/Unexplained Change in Mental Status Sepsis Action Taken by [facility] Medications Current Medication List: was personally reviewed by me Laboratory Data Attestation: I reviewed the patient's lab results. 09/14/24 13:25 09/14/24 13:25 Lab Results 09/14/24 Range/Units 13:25 WBC 12.14 H (4.8-10.8) K/ul RBC 4.66 (4.20-5.40) M/uL Hgb 13.4 (12.0-16.0) g/dl Hct 40.6 (37.0-47.0) % MCV 87.1 (80.0-100.0) fL MCH 28.8 (25.0-34.0) pg MCHC 33.0 (32.0-36.0) g/dL RDW Std Deviation 42.5 (36.4-46.3) fL RDW Coeff of [place] 13.4 (11.5-14.5) % Plt Count 381 (130-400) K/uL MPV 8.8 L (9.4-12.4) fL Immature Gran % (Auto) 1.3 % Neut % (Auto) 63.3 % Lymph % (Auto) 27.6 % [place] % (Auto) 6.6 % Eos % (Auto) 0.8 % Baso % (Auto) 0.4 % Neut # (Auto) 7.68 H (1.40-6.50) K/uL Lymph # (Auto) 3.35 (1.20-3.40) K/uL [place] # (Auto) 0.80 H (0.11-0.59) K/uL Eos # (Auto) 0.10 (0.00-0.50) K/uL Baso # (Auto) 0.05 (0.00-0.20) K/uL Immature Gran # (Auto) 0.16 (0.01-0.20) K/uL PT 9.8 (9.0-12.0) Seconds INR 0.9 (0.9-1.1) APTT 26 (21-31) Seconds PTT Ratio 1.0 Sodium 140 (136-145) mmol/L Potassium 3.9 (3.5-5.1) mmol/L Chloride 105 (98-107) mmol/L Carbon Dioxide 28 (21-32) mmol/L Anion Gap 7 (3-11) BUN 14 (6-23) mg/dl Creatinine 0.92 (0.6-1.2) mg/dl Est Cr Clr Drug Dosing 105.1 ml/min eGFR 77.77 BUN/Creatinine Ratio 15.2 (10-20) Glucose 87 (70-99(Fasting)) mg/dl Calcium 9.5 (8.6-10.3) mg/dl Total Bilirubin 0.4 (0.2-1.0) mg/dl AST 26 (13-39) U/L ALT 14 (7-52) U/L Alkaline Phosphatase 76 (34-104) U/L Troponin I High Sens 3.7 (0-14) pg/ml Total Protein 7.8 (6.0-8.3) gm/dl Albumin 4.0 (3.4-5.0) gm/dl Globulin 3.8 (2.5-4.0) gm/dl Albumin/Globulin Ratio 1.1 (0.9-2) Administered Medications Discontinued Medications Albuterol (Albut/Ipratrop 3mg/0.5mg Neb 3 Ml Vial) 3 ml NEB NOW STA; Protocol Stop: 09/14/24 14:22 Last Admin: 09/14/24 14:32 Dose: 3 ml Documented By: CED Ioversol (Optiray 320 125ml) 115 ml IV ONCE ONE Stop: 09/14/24 14:59 Last Admin: 09/14/24 14:58 Dose: 115 ml Documented By: JOHN Imaging Data Radiologist's Impression: Chest X-Ray 09/14/24 13:08 XR chest 1V not portable CLINICAL HISTORY: Chest pain, nonspecific COMPARISON STUDY: 09/08/2024 FINDINGS: No significant interval changes are noted. There is mild cardiomegaly. Pulmonary vascularity is unremarkable. There is no focal airspace opacity, pneumothorax, pleural effusion, or atelectasis. IMPRESSION: Stable exam; no acute process ACT 112: Negative or not required by law. Electronically signed by: Jemima Nolasco M.D. 09/14/2024 2:18 PM Chest CTA 09/14/24 13:27 CT ANGIOGRAM OF THE CHEST CLINICAL HISTORY: Midsternal chest pain. Shortness of breath. Evaluate for pulmonary embolus. COMPARISON STUDY: Chest CT August 09, 2023. Chest radiograph September 14, 2024 at 2:09 PM. TECHNIQUE: Following the IV administration of 115 cc of Optiray 320, CT angiogram of the chest was performed from the upper abdomen to the thoracic inlet utilizing the pulmonary embolus protocol. Images are reviewed in the axial, sagittal, and coronal planes. 3-D MIPS images are created and assessed. IV contrast was administered without complication. A dose lowering technique was utilized adhering to the principles of ALARA. CT DOSE: 811.98 mGy.cm FINDINGS: No pulmonary emboli are identified although subsegmental pulmonary arteries are suboptimally assessed due to artifact. The heart is mildly enlarged. There is no pericardial effusion. There is no thoracic aortic dissection. No thoracic lymphadenopathy is present. A moderate sized hiatal hernia is present. There are trace bilateral pleural effusions. No pneumothorax. There is no consolidation to suggest pneumonia. Groundglass opacities within the lungs favor atelectasis. There are no suspicious pulmonary nodules. IMPRESSION: 1. No pulmonary emboli identified although subsegmental pulmonary arteries suboptimally assessed. 2. No consolidation to suggest pneumonia. 3. Trace bilateral pleural effusions. 4. Mild cardiomegaly. 5. No change in a moderate sized hiatal hernia. ACT 112: Negative or not required by law. Electronically signed by: Wojciech Emery M.D. 09/14/2024 3:44 PM Discharge Plan Visit Data Chief Complaint: Chest Pain Stated Complaint: CHEST PAIN, WHEEZING, SOB ED Provider: Carlos Garcia Discharge Problem: SOB (shortness of breath), Asthma exacerbation, Failure of outpatient treatment, RSV (respiratory syncytial virus infection) Patient Disposition: Admitted As Inpatient Condition: Fair Forms Stand Alone Forms: [facility] [employer] Prescriptions Prescriptions: No Action Airsupra 90-80 mcg/actuation HFA aerosol inhaler 2 inh inhalation QID PRN (Reason: shortness of breath or wheezing) Qty: 10.7 4RF Skyrizi 360 mg/2.4 mL (150 mg/mL) wearable injector See Rx Instructions .ROUTE .COMPLEX Qty: 2.4 6RF Dose Instruction: INSERT 1 CARTRIDGE INTO ON-BODY INJECTOR AND INJECT 360 MG UNDER THE SKIN EVERY 8 WEEKS. Rx Instructions: INSERT 1 CARTRIDGE INTO ON-BODY INJECTOR AND INJECT 360 MG UNDER THE SKIN EVERY 8 WEEKS. pantoprazole [Protonix] 40 mg tablet,delayed release (DR/EC) 40 mg PO BID Qty: 180 3RF albuterol sulfate 90 mcg/actuation HFA aerosol inhaler 1 - 2 puff INHALATION Q6H PRN (Reason: Shortness Of Breath) Qty: 6.7 3RF famotidine [Pepcid] 40 mg tablet 40 mg PO BID Qty: 180 3RF vitamin D3-vitamin K2 125 mcg (5,000 unit)-100 mcg capsule 2 cap PO DAILY benzonatate 100 mg capsule 100 mg PO Q8H PRN (Reason: cough) Qty: 12 0RF montelukast [Singulair] 10 mg tablet 10 mg PO HS Qty: 90 1RF multivitamin Tablet 1 tab PO QAM bupropion HCl [Wellbutrin SR] 150 mg tablet sustained-release 12 hr 150 mg PO BID naltrexone 50 mg tablet 25 mg PO BID sertraline [Zoloft] 100 mg tablet 150 mg PO DAILY Patient Comments: qam dextromethorphan-guaifenesin 10-100 mg/5 mL Syrup 5 ml PO Q6H PRN (Reason: cough) Qty: 150 0RF dexamethasone 2 mg tablet See Taper PO DAILY Qty: 18 0RF Taper: Taper, Blank 6 mg DAILY for 3 Days 4 mg DAILY for 3 Days 2 mg DAILY for 3 Days Rx Instructions: start taper 09/11 ipratropium-albuterol 0.5 mg-3 mg(2.5 mg base)/3 mL solution for nebulization 3 ml inhalation QID PRN (Reason: wheezing) Qty: 90 0RF fluticasone furoate-vilanterol [Breo Ellipta] 100-25 mcg/dose blister with device 1 inh inhalation DAILY Qty: 60 0RF sodium chloride 7 % solution for nebulization 1 inh inhalation BID 7 Days Qty: 56 0RF Referrals Referrals: Bhavya Israel MD [Primary Care Provider] - Discharge Problem: Asthma exacerbation Qualifiers: Asthma severity: moderate Asthma persistence: persistent Qualified Code(s): J 45.41 - Moderate persistent asthma with (acute) exacerbation RSV (respiratory syncytial virus infection) Qualifiers: RSV infection type: unspecified Qualified Code(s): B33.8 - Other specified viral diseases
[2024-09-14] MEDS: ALBUT/IPRATROP 3MG/0.5MG NEB 3 ML VIAL NEB STA ×2 (14:32→16:47)
--- NOTE | 2024-09-14 14:46 | Electrocardiogram Report ---
Test Reason : Blood Pressure : */* mmHG Vent. Rate : 92 BPM Atrial Rate : 92 BPM P-R Int : 152 ms QRS Dur : 92 ms QT Int : 358 ms P-R-T Axes : 25 -38 40 degrees QTcB Int : 442 ms Normal sinus rhythm Left axis deviation Abnormal ECG When compared with ECG of 08-Sep-2024 17:22, No significant change was found Confirmed by Edson Waller ([id number]) on 09/14/2024 2:45:44 PM Referred By: Confirmed By: Edson Waller
[2024-09-14] MEDS: OPTIRAY 320 125ml IV ONE (14:58)
--- NOTE | 2024-09-14 15:46 | CT Scan Report ---
CT ANGIOGRAM OF THE CHEST CLINICAL HISTORY: Midsternal chest pain. Shortness of breath. Evaluate for pulmonary embolus. COMPARISON STUDY: Chest CT August 09, 2023. Chest radiograph September 14, 2024 at 2:09 PM. TECHNIQUE: Following the IV administration of 115 cc of Optiray 320, CT angiogram of the chest was pe rformed from the upper abdomen to the thoracic inlet utilizing the pulmonary embolus protocol. Images are reviewed in the axial, sagittal, and coronal planes. 3-D MIPS images are created and assessed. I V contrast was administered without complication. A dose lowering technique was utilized adhering to the principles of ALARA. CT DOSE: 811.98 mGy.cm FINDINGS: No pulmonary emboli are identified although subsegmental pulmonary arteries are suboptimall y assessed due to artifact. The heart is mildly enlarged. There is no pericardial effusion. There is no thoracic aortic dissection. No thoracic lymphadenopathy is present. A moderate sized hiatal hernia is present. There are trace bilateral pleural effusions. No pneumothorax. There is no consolidation to suggest pneumonia. Groundglass opacities within the lungs favor atelectasis. There are no suspicio us pulmonary nodules. IMPRESSION: 1. No pulmonary emboli identified although subsegmental pulmonary arteries suboptimally assessed. 2. No consolidation to suggest pneumonia. 3. Trace bilateral pleural effusions. 4. Mild cardiomegaly. 5. No change in a moderate sized hiatal hernia. ACT 112: Negative or not required by law. Electronically signed by: Wojciech Emery M.D. 09/14/2024 3:44 PM
[2024-09-14] MEDS: methylPREDNISolone 125 MG/2 ML VIAL IV STA (16:47)
[2024-09-14] MEDS: MAGNESIUM SULFATE / D5W 1 GM/100 ML BAG IV ONE (17:46)
--- NOTE | 2024-09-14 18:08 | History & Physical Report ---
Date of Service September 14, 2024 Assessment & Plan (1) Asthma exacerbation: (2) RSV (respiratory syncytial virus infection): (3) Obesity: (4) Crohn's colitis: Plan This pt is a 44 yo female with a h/o asthma, obesity, Crohn's disease on Skyrizi, allergies, GERD, and depression w/ anxiety who presents to the ED with ongoing and worsening SOB, wheezing, and chest pain after recently being discharged from hospital for asthma exacerbation and RSV infection. She did cough up two dime-sized amounts of blood a couple nights ago. No fevers/chills. Does have a headache that just started since being in the ED. Pain in chest and left sided ribs with coughing. She was seen by PCP in f/u today and advised to come to ED for urgent CTA chest which was neg for PNA or PE. POx was normal and not requiring supplemental O2, but had ongoing respiratory distress and significant wheezing, tachypnea at RR 26/min. She received an hour long albuterol neb and IV Solu Medrol with some relief. She is being brought in for observation for ongoing acute asthma exacerbation. #RSV/Acute asthma exacerbation/Respiratory distress-readmission after once again failing outpt treatment with po decadron and inhalers, nebs. WIth respiratory distress here, not hypoxic. CTA Chest and CXR neg for PNA or PE. Scant hemoptysis 2 days prior to admission likely from airway irritation. Prolonged illness in setting of immunosuppression for Crohn's disease. No pneumonia or other secondary bacterial infection signs/symptoms. With diffuse wheezing on admission -observe for ongoing treatment of asthma exacerbation -continue Duonebs scheduled qid -Start IV Solu Medrol 60mg IV bid -continue home Singulair, maintenance inhalers -supplemental O2 if needed for POx<90% -continue supportive care-add hydrocodone cough syrup prn, tylenol for headache or rib pain -give 1 gram IV magnesium #Crohn's/GERD-no acute issues -hold home Skyrizi until recovered from asthma exacerbation and RSV -continue PPI, pepcid #Depression/anxiety-no acute issues -continue home sertraline, bupropion #Obesity, BMI 57.5-needs weight loss -hold home naltrexone (presumably for weight loss) while on hydrocodone for antitussive #Allergies-continue Singulair DVT proph-Lovenox SQ, SCDs Dispo-observe on med-tele History of Present Illness Chief Complaint: SOB, chest pain, cough Primary Care Provider: Bhavya Israel MD This pt is a 44 yo female with a h/o asthma, obesity, Crohn's disease on Skyrizi, allergies, GERD, and depression w/ anxiety who presents to the ED with ongoing and worsening SOB, wheezing, and chest pain after recently being discharged from hospital for asthma exacerbation and RSV infection. She did cough up two dime-sized amounts of blood a couple nights ago. No fevers/chills. Does have a headache that just started since being in the ED. Pain in chest and left sided ribs with coughing. She was seen by PCP in f/u today and advised to come to ED for urgent CTA chest which was neg for PNA or PE. POx was normal and not requiring supplemental O2, but had ongoing respiratory distress and significant wheezing, tachypnea at RR 26/min. She received an hour long albuterol neb and IV Solu Medrol with some relief. She is being brought in for observation for ongoing acute asthma exacerbation. Allergies Allergy/AdvReac Type Severity Reaction Status Date / Time wheat Allergy Intermediate stomach Verified 09/14/24 07:49 pains cat dander Allergy Mild sneezing/watery Verified 09/14/24 07:49 eyes dog dander Allergy Mild sneezing/watery Verified 09/14/24 07:49 eyes house dust Allergy Mild sneezing/watery Verified 09/14/24 07:49 eyes mold Allergy Mild sneezing/watery Verified 09/14/24 07:49 eyes pollen extracts Allergy Mild sneezing/watery Verified 09/14/24 07:49 eyes ciprofloxacin AdvReac Severe Anaphylaxis Verified 09/14/24 07:49 moxifloxacin AdvReac Intermediate Vomiting Verified 09/14/24 07:49 Home Medications Medication Instructions Recorded Confirmed Type multivitamin 1 tab PO QAM 11/21/21 09/14/24 History famotidine 40 mg tablet (Pepcid) 40 mg PO BID #180 tabs 03/16/23 09/14/24 Rx albuterol 90 mcg-budesonide 80 2 inh inhalation QID PRN shortness 09/15/23 09/14/24 Rx mcg/actuation HFA aerosol inhaler of breath or wheezing #10.7 grams (Airsupra) montelukast 10 mg tablet 10 mg PO HS #90 tabs 03/02/24 09/14/24 Rx (Singulair) risankizumab-rzaa 360 mg/2.4 mL See Rx Instructions .Route 04/24/24 09/14/24 Rx (150 mg/mL) subcut wearable .COMPLEX #2.4 mL injector (Skyrizi) vitamin D3 125 mcg (5,000 2 cap PO DAILY 04/27/24 09/14/24 History unit)-vitamin K2 100 mcg capsule pantoprazole 40 mg tablet,delayed 40 mg PO BID #180 tabs 05/31/24 09/14/24 Rx release (Protonix) albuterol sulfate 90 mcg/actuation 1 - 2 puff inhalation Q6H PRN 08/25/24 09/14/24 Rx aerosol inhaler Shortness Of Breath #6.7 grams bupropion HCl 150 mg tablet,12 hr 150 mg PO BID 09/08/24 09/14/24 History sustained-release (Wellbutrin SR) naltrexone 50 mg tablet 25 mg PO BID 09/08/24 09/14/24 History sertraline 100 mg tablet (Zoloft) 150 mg PO DAILY 09/08/24 09/14/24 History dexamethasone 2 mg tablet See Taper PO DAILY #18 tabs 09/10/24 09/14/24 Rx dextromethorphan-guaifenesin 10 5 ml PO Q6H PRN cough #150 mL 09/10/24 09/14/24 Rx mg-100 mg/5 mL oral syrup fluticasone furoate 100 1 inh inhalation DAILY #60 ea 09/10/24 09/14/24 Rx mcg-vilanterol 25 mcg/dose inhalation powder (Breo Ellipta) ipratropium 0.5 mg-albuterol 3 mg 3 ml inhalation QID PRN wheezing 09/10/24 09/14/24 Rx (2.5 mg base)/3 mL nebulization #90 mL soln sodium chloride 7 % for 1 inh inhalation BID 7 days #56 mL 09/10/24 09/14/24 Rx nebulization benzonatate 100 mg capsule 100 mg PO Q8H PRN cough #12 caps 09/14/24 09/14/24 Rx Past Med/Surg History Problem List RSV (respiratory syncytial virus infection) (Acute) Failure of outpatient treatment (Acute) Asthma exacerbation (Acute) SOB (shortness of breath) (Acute) Failure of outpatient treatment (Acute) Asthma exacerbation (Acute) RSV bronchiolitis (Acute) SOB (shortness of breath) (Acute) Dietary counseling and surveillance Obesity Diarrhea Routine gynecological examination Obesity, morbid, BMI 50 or higher MONIQUE (obstructive sleep apnea) Allergic rhinitis with postnasal drip Exertional shortness of breath Calcific tendinitis of right shoulder GERD (gastroesophageal reflux disease) Intermittent lightheadedness Palpitations Biliary dyskinesia Large hiatal hernia RUQ abdominal tenderness (Acute) "on again off again" Crohn's colitis Chronic head pain Anxiety Anemia (Acute) chronic>being monitored Asthma (Chronic) inhalers/nebulizer prn>last used inhaler March 2023 Chronic reflux esophagitis (Chronic) Chronic sinusitis (Chronic) Depression Medical History History of depression HILL (dyspnea on exertion) Follows [facility] Pulm Crohn's colitis History of anxiety Asthma Anemia CCP/[place] monitoring History of COVID-19 spring/summer 2021, tested at PCP, not hosp; no taste and smell, "cold" symptoms>resolved. Hiatal hernia History of blood transfusion 2019 Morbid obesity with BMI of 45.0-49.9, adult Hypotension states she normally runs 90s/50s Esophageal reflux Sleep apnea APAP per sleep clinic--cpap per patient Surgical History S/P shoulder surgery Right 04/2023 Left - awhile ago Slow to wake up after anesthesia S/P cholecystectomy History of anesthesia reaction states that sometimes her BP drops with anesthesia, pt states she does run low typically (90/50s) Nausea and vomiting after administration of anesthetic agent "given the scopalamine patch in the past and still got sick after her procedure" History of lumpectomy of left breast benign History of esophagogastroduodenoscopy (EGD) last 11/08/20 @ [facility] S/P colonoscopy Hx of tubal ligation H/O oophorectomy Left H/O section x2 H/O: hysterectomy supracervical hysterectomy History of appendectomy [place] teeth removed Family History Mother Colon cancer Breast cancer Family history of reaction to anesthesia nausea/vomiting Father Colon cancer Crohn's disease COPD (chronic obstructive pulmonary disease) Other Arthritis Asthma Atypical chest pain Cancer Chronic cough Hypertension Kidney stone Migraine Denies family history of Ovarian cancer Prostate cancer Myocardial infarction Social History Smoking Status: Never smoker Second Hand Exposure: No; Do You Dip or Chew Tobacco: No; Hx Alcohol Use: Yes Alcohol type: wine Alcohol Intake Frequency: Monthly or Less Hx Substance Use: No Preferred Language: Bur[place]ian Communication Ability: Effective Visual Impairment: No Limitations Hearing Ability: Normal Supervisor Coremaker Required: No Beliefs That Will Affect Care: None marital status: Current Living Situation: Spouse and Family Current Living Situation Comment: Home with and daughter current occupational status: employed current occupation: works at [employer] How many Children do You have: 2 Feels Safe at Home: Yes Childhood Exposure to Second-Hand Smoke: Yes Diet: regular caffeine: Yes during the past year weight has: increased > 10 lbs Dental Care, Regularly: Yes Physical Activity Frequency: 1-2 Times per Week Seatbelt Use: always Sunscreen Use: Yes Do you think of yourself as: straight/heterosexual Assistive Devices: CPAP Review of Systems Review of Systems: All systems reviewed & are unremarkable except as noted in HPI & below Physical Exam Constitutional: WD/WN, vitals as above Eyes: PERRL, conjunctivae normal, anicteric sclerae ENMT: external ear and nose normal, oropharynx normal Ears: no external ear abnormality, no EAC abnormality and no TM abnormality Neck: trachea midline, no thyromegaly Respiratory: normal respiratory effort and + cough Auscultation: + wheezes (bilat, expiratory); no crackles and no rhonchi Cardiovascular: RRR, no murmur, no edema Chest (Breasts): Chest: normal inspection of chest Gastrointestinal (Abdomen): normal bowel sounds, soft, nontender, no hepatosplenomegaly Musculoskeletal: Extremities: extremities normal to inspection; no cyanosis and no clubbing Skin: no rashes, warm and dry Neurologic: moves all extremities and awake; no focal motor deficits Psychiatric: A+Ox3, euthymic affect Lymphatic: no lymphedema Results & Data Results & Data Vital Signs (Past 12 Hours) Vital Signs Temp Pulse Pulse Resp BP BP Pulse Ox 09/14/24 17:00 92 H 20 112/80 94 09/14/24 16:31 88 22 122/85 93 09/14/24 16:00 18 106/78 94 09/14/24 16:00 26 H 106/78 93 09/14/24 15:30 18 124/69 94 09/14/24 15:06 98 H 22 121/78 95 09/14/24 14:36 18 100 09/14/24 14:36 90 18 108/70 100 09/14/24 14:36 09/14/24 14:33 88 22 96 09/14/24 14:29 92 H 09/14/24 14:23 108/70 09/14/24 13:06 36.7 C 93 H 22 133/82 96 O2 Del Method 09/14/24 17:00 Room Air 09/14/24 16:31 Room Air 09/14/24 16:00 Room Air 09/14/24 16:00 Room Air 09/14/24 15:30 Room Air 09/14/24 15:06 Room Air 09/14/24 14:36 09/14/24 14:36 Room Air 09/14/24 14:36 Room Air 09/14/24 14:33 Room Air 09/14/24 14:29 09/14/24 14:23 09/14/24 13:06 Room Air Laboratory Results CBC, CMP, PT/PTT/INR, troponin reviewed Diagnostic Findings CXR and CTA Chest reviewed ECG Additional Comments: ECG 09/14/24 with NSR, rate 90, no ischemic changes Code Status & VTE Plan Code Status Full code VTE Prophylaxis Plan VTE Prophylaxis will be ordered: Yes PG Care Time/CCT Total # of Minutes Spent Total Time Spent with Patient: Total time spent is greater than 50% in coordination of care (as documented) at patient's floor/unit and/or counseling patient: Coding Level of Care Code 58265 INT INP/OBS CARE 375MIN Diagnoses Asthma exacerbation J45.41 Asthma persistence: persistent Asthma severity: moderate RSV (respiratory syncytial virus infection) B33.8 RSV infection type: unspecified Class 3 severe obesity due to excess calories with serious comorbidity and body mass index (BMI) of 50.0 to 59.9 in adult E66.813; E66.01; Z68.43 Body mass index: BMI 50.0-59.9 Obesity classification: adult class 3 (BMI >= 40) Obesity type: due to excess calories Serious obesity comorbidity presence: with serious comorbidity Crohn's colitis K50.10 (1) Asthma exacerbation Asthma persistence: persistent Asthma severity: moderate Qualified Code(s): J45.41 - Moderate persistent asthma with (acute) exacerbation (2) RSV (respiratory syncytial virus infection) RSV infection type: unspecified Qualified Code(s): B33.8 - Other specified viral diseases (3) Obesity Body mass index: BMI 50.0-59.9 Obesity classification: adult class 3 (BMI >= 40) Obesity type: due to excess calories Serious obesity comorbidity presence: with serious comorbidity Qualified Code(s): E66.813 - Obesity, class 3; E66.01 - Morbid (severe) obesity due to excess calories; Z68.43 - Body mass index [BMI] 50.0-59.9, adult
[2024-09-14] MEDS: ACETAMINOPHEN 500 MG TAB PO STA (18:21)
[2024-09-14] MEDS: HYDROcodone/HOMATROPINE SYRUP 5MG/1.5MG 5ML UDP PO STA (18:22)
[2024-09-14] MEDS ORDERED: ALUMINUM/MAGNESIUM SUSP 30 ML UDC PO PRN (21:27)
[2024-09-14] MEDS ORDERED: ONDANSETRON INJ 2 MG/ML 2 ML VIAL IV PRN (21:27)
[2024-09-14] MEDS ORDERED: methylPREDNISolone 1000 MG/16 ML IV SCH (21:27)
[2024-09-14] MEDS ORDERED: POLYETHYLENE (MIRALAX) 17 GM PACK PO PRN (21:27)
[2024-09-14] MEDS ORDERED: MAGNESIUM HYDROXIDE SUSP 30 ML UDC PO PRN (21:27)
[2024-09-14] MEDS: MONTELUKAST SODIUM 10 MG TABLET PO SCH (22:35)
[2024-09-14] MEDS: PANTOprazole 40 MG TAB PO SCH (22:35)
[2024-09-14] MEDS: buPROPion SR 150 MG TABCR PO SCH (22:35)
[2024-09-14] MEDS: ENOXAPARIN INJ 40 MG/0.4 ML SYR SQ SCH (22:35)
[2024-09-14] MEDS: FAMOTIDINE 40 MG TABLET PO SCH (22:35)
[2024-09-14] MEDS: methylPREDNISolone 60 MG in SYRINGE 0 ML IV SCH (22:36)
[2024-09-14] MEDS: ALBUT/IPRATROP 3MG/0.5MG NEB 3 ML VIAL INH SCH (22:44)
[2024-09-15] MEDS: HYDROcodone/HOMATROPINE SYRUP 5MG/1.5MG 5ML UDP PO PRN (05:54)
[2024-09-15 07:57] LABS: Basophils # (auto) 0.02 K/uL (0.00-0.20); Basophils % (auto) 0.2 %; Hematocrit (blood only) 40.1 % (37.0-47.0); Hemoglobin 13.1 g/dl (12.0-16.0); Immature Granulocytes # (auto) 0.19 K/uL (0.01-0.20); Immature Granulocytes % (auto) 1.6 %; Lymphocytes # (auto) 1.48 K/uL (1.20-3.40); Lymphocytes % (auto) 12.5 %; Mean Corpuscular Hemoglobin 28.4 pg (25.0-34.0); Mean Corpuscular Hgb Conc 32.7 g/dL (32.0-36.0); Mean Corpuscular Volume 86.8 fL (80.0-100.0); Mean Platelet Volume 8.8 fL (9.4-12.4); Monocytes # (auto) 0.38 K/uL (0.11-0.59); Monocytes % (auto) 3.2 %; Neutrophils # (auto) 9.77 K/uL (1.40-6.50); Neutrophils % (auto) 82.5 %; Platelet Count 400 K/uL (130-400); RDW Coefficient of Variation 13.4 % (11.5-14.5); RDW Standard Deviation 42.6 fL (36.4-46.3); Red Blood Count 4.62 M/uL (4.20-5.40); White Blood Count 11.84 K/ul (4.8-10.8)
[2024-09-15 08:09] LABS: BUN Creatinine Ratio 17.1 (10-20); Calcium 9.5 mg/dl (8.6-10.3); Magnesium 2.3 mg/dl (1.7-2.4); Potassium 4.4 mmol/L (3.5-5.1)
--- NOTE | 2024-09-15 08:13 | Hospitalist Progress Note ---
Date of Service September 15, 2024 Assessment & Plan (1) Asthma exacerbation: (2) RSV (respiratory syncytial virus infection): (3) Obesity: (4) Crohn's colitis: Plan 44 yo female with a h/o asthma, obesity, Crohn's disease on Skyrizi, allergies, GERD, and depression w/ anxiety who presents to the ED with ongoing and worsening SOB, wheezing, and chest pain after recently being discharged from hospital for asthma exacerbation and RSV infection. Reported cough up two dime- sized amounts of blood a couple nights ago. No fevers/chills but reports slight headache, L sided rib pain with coughing. PCP sent to ER for concerns PE and CTA was negative for PE or PNA. POx normal without need for O2 and got hour long neb in ER for respiratory distress, tachypnea and RR 26 w/ solumedrol IV w/ some relief #RSV/Acute asthma exacerbation/Respiratory distress -readmission after once again failing outpt tx PO Decadrone/inhalers, no hypoxia at present but with respiratory distress and in setting immunosuppression for Crohns disease CTA chest negative for PE/PNA 09/15 - Ongoing wheezing/tightness, only slight improvement reported but remains on RA Solu-medrol increased to TID , 60mg IV x 1 now. Breo placed on hold --> ordered budesonide/hypertonic saline nebs Continue Duonebs QID Incentive spirometer ordered- nursing to provide bringing flutter valve and encouraged use (not ordered to prevent additional bill) Mucinex BID, Vitamin D added. Continue montelukast. Hydrocodone cough syrup, oxy 5mg PO x 1 for rib pain but improvement w toradol IV prior Toradol 10mg IV x 1 and making 15mg IV prn for MSK pain from coughing Continued inpatient stay, possible dc in AM on slow taper 09/16 #Crohn's/GERD No acute issues but home Skyrizi on hold until recovered from asthma exacerbation and RSV Continue home PPI, pepcid, steroids for above. Vit D PO resumed for prior level 12 in Feb (reports compliance and can resume home dose at dc as discussed low levels associated w/ higher risk severe asthma attackes) Monitor for any issues #Depression/anxiety-no acute issues and remains on home sertaline, bupropion #Obesity, BMI 57.5-needs weight loss -hold home naltrexone (presumably for weight loss) while on hydrocodone for antitussive #Allergies-continue Singulair, mucinex added BID and suspect benefit from ongoing use at dc until resolved DVT proph-Lovenox SQ, SCDs Dispo: continued inpatient stay, IV steroids increased and added nebs as outlined Admission and Anticipated Discharge Date Admission Date: September 14, 2024 Supervising Physician Co-Signing Physician Notes The patient was not seen by me. The chart was reviewed. Case discussed with ANDRES Jensen. Agree with assessment and plan Subjective Eval this afternoon, in-law at bedside. Feeling a little better but significantly tight. Oxycodone helpful, toradol helpful last admission and will try. No incentive spirometer and will have aide provider. bringing flutter valve per request as got last time. Remains, tight, will change IV to TID Discussed hypertonic saline/budesonide nebs, reports got last time w/ improvement and will change Breo. Remains inpatient. Is complaint w/ Vit D at home. Physical Exam 2 Constitutional: WD/WN, vitals as above Eyes: PERRL, conjunctivae normal, anicteric sclerae Neck: trachea midline, no thyromegaly Respiratory: normal respiratory effort and + cough Auscultation: + wheezes (bilat, expiratory); no crackles and no rhonchi decreased air entry bilaterally, decreased in the bases Cardiovascular: RRR, no murmur, no edema Chest (Breasts): Chest: normal inspection of chest Gastrointestinal (Abdomen): normal bowel sounds, soft, nontender, no hepatosplenomegaly Musculoskeletal: Extremities: extremities normal to inspection; no cyanosis and no clubbing Skin: no rashes, warm and dry Neurologic: moves all extremities and awake; no focal motor deficits Psychiatric: A+Ox3, euthymic affect Lymphatic: no lymphedema Results & Data Results & Data Vital Signs (Past 12 Hours) Vital Signs Temp Pulse Pulse Pulse Resp BP BP 09/15/24 07:32 36.8 C 67 18 122/71 09/15/24 07:32 70 16 09/15/24 05:43 63 09/15/24 03:08 36.6 C 62 18 107/74 09/14/24 22:44 77 18 09/14/24 22:35 73 09/14/24 22:30 09/14/24 22:30 36.9 C 69 20 150/81 H 09/14/24 21:42 75 17 111/67 09/14/24 21:00 83 22 132/90 09/14/24 20:39 78 20 111/76 Pulse Ox O2 Del Method 09/15/24 07:32 93 Room Air 09/15/24 07:32 98 Room Air 09/15/24 05:43 09/15/24 03:08 95 Room Air 09/14/24 22:44 95 Room Air 09/14/24 22:35 09/14/24 22:30 Room Air 09/14/24 22:30 95 Room Air 09/14/24 21:42 97 Room Air 09/14/24 21:00 94 Room Air 09/14/24 20:39 93 Room Air Laboratory Results 09/15/24 07:22 09/15/24 07:22 Diagnostic Findings Chest X-Ray 09/14/24 13:08 XR chest 1V not portable CLINICAL HISTORY: Chest pain, nonspecific COMPARISON STUDY: 09/08/2024 FINDINGS: No significant interval changes are noted. There is mild cardiomegaly. Pulmonary vascularity is unremarkable. There is no focal airspace opacity, pneumothorax, pleural effusion, or atelectasis. IMPRESSION: Stable exam; no acute process ACT 112: Negative or not required by law. Electronically signed by: Jemima Nolasco M.D. 09/14/2024 2:18 PM Chest CTA 09/14/24 13:27 CT ANGIOGRAM OF THE CHEST CLINICAL HISTORY: Midsternal chest pain. Shortness of breath. Evaluate for pulmonary embolus. COMPARISON STUDY: Chest CT August 09, 2023. Chest radiograph September 14, 2024 at 2:09 PM. TECHNIQUE: Following the IV administration of 115 cc of Optiray 320, CT angiogram of the chest was performed from the upper abdomen to the thoracic inlet utilizing the pulmonary embolus protocol. Images are reviewed in the axial, sagittal, and coronal planes. 3-D MIPS images are created and assessed. IV contrast was administered without complication. A dose lowering technique was utilized adhering to the principles of ALARA. CT DOSE: 811.98 mGy.cm FINDINGS: No pulmonary emboli are identified although subsegmental pulmonary arteries are suboptimally assessed due to artifact. The heart is mildly enlarged. There is no pericardial effusion. There is no thoracic aortic dissection. No thoracic lymphadenopathy is present. A moderate sized hiatal hernia is present. There are trace bilateral pleural effusions. No pneumothorax. There is no consolidation to suggest pneumonia. Groundglass opacities within the lungs favor atelectasis. There are no suspicious pulmonary nodules. IMPRESSION: 1. No pulmonary emboli identified although subsegmental pulmonary arteries suboptimally assessed. 2. No consolidation to suggest pneumonia. 3. Trace bilateral pleural effusions. 4. Mild cardiomegaly. 5. No change in a moderate sized hiatal hernia. ACT 112: Negative or not required by law. Electronically signed by: Wojciech Emery M.D. 09/14/2024 3:44 PM PG Care Time/CCT Total # of Minutes Spent Total Time Spent with Patient: Total time spent is greater than 50% in coordination of care (as documented) at patient's floor/unit and/or counseling patient: Coding Level of Care Code 34053 SUB INP/OBS CARE 3/50MIN Diagnoses Asthma exacerbation J45.41 Asthma persistence: persistent Asthma severity: moderate RSV (respiratory syncytial virus infection) B33.8 RSV infection type: unspecified Class 3 severe obesity due to excess calories with serious comorbidity and body mass index (BMI) of 50.0 to 59.9 in adult E66.813; E66.01; Z68.43 Body mass index: BMI 50.0-59.9 Obesity classification: adult class 3 (BMI >= 40) Obesity type: due to excess calories Serious obesity comorbidity presence: with serious comorbidity Crohn's colitis K50.10 (1) Asthma exacerbation Asthma persistence: persistent Asthma severity: moderate Qualified Code(s): J45.41 - Moderate persistent asthma with (acute) exacerbation (2) RSV (respiratory syncytial virus infection) RSV infection type: unspecified Qualified Code(s): B33.8 - Other specified viral diseases (3) Obesity Body mass index: BMI 50.0-59.9 Obesity classification: adult class 3 (BMI >= 40) Obesity type: due to excess calories Serious obesity comorbidity presence: with serious comorbidity Qualified Code(s): E66.813 - Obesity, class 3; E66.01 - Morbid (severe) obesity due to excess calories; Z68.43 - Body mass index [BMI] 50.0-59.9, adult
[2024-09-15] MEDS: MULTIVITAMIN TAB PO SCH (08:24)
[2024-09-15] MEDS: FLUTICASONE/VILANTEROL 100/25MCG 14 PUFFS/INHALER INH SCH (08:24)
[2024-09-15] MEDS: SERTRALINE HCL 50 MG TABLET PO SCH (08:24)
[2024-09-15] MEDS: oxyCODONE HCL IR 5 MG TAB (IMMEDIATE RELEASE) PO STA (08:35)
[2024-09-15] MEDS ORDERED: VITAMIN D3 VITAMIN K2 PO SCH (09:00)
[2024-09-15] MEDS: CHOLECALCIFEROL 125 MCG (5,000 UNITS) TAB PO SCH (09:17)
[2024-09-15] MEDS: KETOROLAC TROMETHAMINE 15 MG/ML VIAL IV ONE (13:49)
[2024-09-15] MEDS: methylPREDNISolone 125 MG/2 ML VIAL IV STA (14:57)
[2024-09-15] MEDS: guaiFENesin/DEXTROM SYRUP 200MG/20MG 10ML UDC PO STA (17:07)
[2024-09-15] MEDS: SODIUM CHLOR 7% 4 ML NEB NEB SCH (19:19)
[2024-09-15] MEDS: BUDESONIDE 0.5 MG/2 ML VIAL (PULMICORT) NEB SCH (19:19)
[2024-09-15] MEDS: BENZONATATE 100 MG CAPSULE PO SCH (20:51)
[2024-09-15] MEDS: KETOROLAC TROMETHAMINE 15 MG/ML VIAL IV PRN (20:51)
[2024-09-15] MEDS: methylPREDNISolone 60 MG in SYRINGE 0 ML IV SCH (20:58)
[2024-09-16] MEDS: guaiFENesin/DEXTROM SYRUP 200MG/20MG 10ML UDC PO STA (00:57)
[2024-09-16] MEDS: ALBUT/IPRATROP 3MG/0.5MG NEB 3 ML VIAL NEB STA (04:18)
[2024-09-16 07:22] LABS: BUN Creatinine Ratio 24.2 (10-20); Calcium 8.9 mg/dl (8.6-10.3); Creatinine Clr Calc Pharmacy 105.9 ml/min; Magnesium 2.2 mg/dl (1.7-2.4); Potassium 4.1 mmol/L (3.5-5.1)
[2024-09-16 07:36] LABS: Hematocrit (blood only) 37.7 % (37.0-47.0); Hemoglobin 12.4 g/dl (12.0-16.0); Mean Corpuscular Hemoglobin 28.6 pg (25.0-34.0); Mean Corpuscular Hgb Conc 32.9 g/dL (32.0-36.0); Mean Corpuscular Volume 86.9 fL (80.0-100.0); Platelet Count 413 K/uL (130-400); RDW Coefficient of Variation 13.3 % (11.5-14.5); Red Blood Count 4.34 M/uL (4.20-5.40); White Blood Count 13.01 K/ul (4.8-10.8)
--- NOTE | 2024-09-16 08:03 | Hospitalist Progress Note ---
Date of Service September 16, 2024 Assessment & Plan (1) Asthma exacerbation: (2) RSV (respiratory syncytial virus infection): (3) Obesity: (4) Crohn's colitis: (5) MONIQUE (obstructive sleep apnea): Plan 44 yo female with a h/o asthma, obesity, Crohn's disease on Skyrizi, allergies, GERD, and depression w/ anxiety who presents to the ED with ongoing and worsening SOB, wheezing, and chest pain after recently being discharged from hospital for asthma exacerbation and RSV infection. Reported cough up two dime- sized amounts of blood a couple nights ago. No fevers/chills but reports slight headache, L sided rib pain with coughing. PCP sent to ER for concerns PE and CTA was negative for PE or PNA. POx normal without need for O2 and got hour long neb in ER for respiratory distress, tachypnea and RR 26 w/ solumedrol IV w/ some relief #RSV/Acute asthma exacerbation/Respiratory distress -Readmission after once again failing outpt tx PO Decadrone/inhalers, no hypoxia at present but with respiratory distress and in setting immunosuppression for Crohns disease CTA chest negative for PE/PNA Solumedrol increased to TID for significant/ongoing wheezing 4/4 and will continue Duonebs QID Budesonide nebs BID, hypertonic saline added 4/4 given reports prior effective Continue pulmonary toilet with incentive spirometer, flutter valve. mucinex, tessalon pearls for cough Pain control: cough syrup, toradol IV for pain/MSK/costochondritis pain, oxycodone for breakthrough as needed O2 to maintain sats, remains on RA Repeat CXR given reports chills/feels clammy but no fever to monitor for bacterial PNA from RSV #Crohn's/GERD No acute issues but home Skyrizi on hold until recovered from asthma exacerbation and RSV Vit D PO resumed for prior level 12 in Feb -reports compliance and can resume home dose at dc as discussed low levels associated w/ higher risk severe asthma attacks Continue home PPI, pepcid, steroids for above. Monitor for any issues #Depression/anxiety No acute issues and remains on home sertraline, bupropion #Obesity, BMI 57.5-needs weight loss Hold home naltrexone (presumably for weight loss) while on hydrocodone for antitussive, oxycodone for rib pain/MSK #Allergies continue Singulair, mucinex added BID and suspect benefit from ongoing use at dc until resolved to help w/ expectorating sputum #MONIQUE Hx of such noted-- home machine in room, order to use/should be using DVT proph-Lovenox SQ, SCDs Dispo: continued inpatient stay on IV steroids/nebulizers. Monitor for fever/bacterial PNA. Changed to full admission Admission and Anticipated Discharge Date Admission Date: September 14, 2024 Supervising Physician Co-Signing Physician Notes The patient was not seen by me. The chart was reviewed. Case discussed with ANDRES Jensen. Agree with assessment and plan Subjective Eval this morning around 1130, getting breathing treatment. Wheezing persists, feels about the same. Less expectoration. Ongoing pain from cough, oxy effective yesterday and will order. Voltaren topical. Changing to full admission, remain inpatient. Physical Exam 2 Constitutional: WD/WN, vitals as above Eyes: PERRL, conjunctivae normal, anicteric sclerae Neck: trachea midline, no thyromegaly Respiratory: normal respiratory effort and + cough Auscultation: + wheezes (bilat, expiratory); no crackles and no rhonchi decreased air entry bilaterally (improved), decreased wheezing but still significant, remains decreased in the bases Cardiovascular: RRR, no murmur, no edema Chest (Breasts): Chest: normal inspection of chest Gastrointestinal (Abdomen): normal bowel sounds, soft, nontender, no hepatosplenomegaly Musculoskeletal: Extremities: extremities normal to inspection; no cyanosis and no clubbing Skin: no rashes, warm and dry Neurologic: moves all extremities and awake; no focal motor deficits Psychiatric: A+Ox3, euthymic affect Lymphatic: no lymphedema Results & Data Results & Data Vital Signs (Past 12 Hours) Vital Signs Temp Pulse Pulse Resp BP Pulse Ox O2 Del Method 09/16/24 07:32 84 20 91 Room Air 09/16/24 04:18 77 20 95 Room Air 09/16/24 03:58 37 C 84 20 112/64 96 Room Air 09/16/24 00:24 Room Air 09/15/24 23:28 36.9 C 73 18 112/73 94 Room Air 09/15/24 22:02 76 Laboratory Results 09/16/24 06:33 09/16/24 06:33 Mag 2.2 A1c 5.9 PG Care Time/CCT Total # of Minutes Spent Total Time Spent with Patient: Total time spent is greater than 50% in coordination of care (as documented) at patient's floor/unit and/or counseling patient: Coding Level of Care Code 10636 SUB INP/OBS CARE 3/50MIN Diagnoses Asthma exacerbation J45.41 Asthma persistence: persistent Asthma severity: moderate RSV (respiratory syncytial virus infection) B33.8 RSV infection type: unspecified Class 3 severe obesity due to excess calories with serious comorbidity and body mass index (BMI) of 50.0 to 59.9 in adult E66.813; E66.01; Z68.43 Body mass index: BMI 50.0-59.9 Obesity classification: adult class 3 (BMI >= 40) Obesity type: due to excess calories Serious obesity comorbidity presence: with serious comorbidity Crohn's colitis K50.10 MONIQUE (obstructive sleep apnea) G47.33 (1) Asthma exacerbation Asthma persistence: persistent Asthma severity: moderate Qualified Code(s): J45.41 - Moderate persistent asthma with (acute) exacerbation (2) RSV (respiratory syncytial virus infection) RSV infection type: unspecified Qualified Code(s): B33.8 - Other specified viral diseases (3) Obesity Body mass index: BMI 50.0-59.9 Obesity classification: adult class 3 (BMI >= 40) Obesity type: due to excess calories Serious obesity comorbidity presence: with serious comorbidity Qualified Code(s): E66.813 - Obesity, class 3; E66.01 - Morbid (severe) obesity due to excess calories; Z68.43 - Body mass index [BMI] 50.0-59.9, adult
[2024-09-16 08:09] LABS: Estimated Average Glucose 123 mg/dl; Hemoglobin A1C 5.9 % (4.5-5.6)
[2024-09-16] MEDS: ACETAMINOPHEN 325 MG TAB PO PRN (08:14)
[2024-09-16] MEDS: oxyCODONE HCL IR 5 MG TAB (IMMEDIATE RELEASE) PO STA (11:38)
--- NOTE | 2024-09-16 13:38 | XRay Report ---
XR chest 1V portable HISTORY: 44 years-old Female f/u, eval pna acute shortness of breath COMPARISON: 09/14/2024 TECHNIQUE: AP view of the chest FINDINGS: Small hiatal hernia. Mild cardiomegaly. Lungs are clear without pneumothorax, pleural effusion, airsp juli consolidation or pulmonary edema. Bones appear grossly intact. IMPRESSION: No acute process. ACT 112: Negative or not required by law. The above report was generated using voice recognition software. It may contain grammatical, syntax o r spelling errors. Electronically signed by: Jerome Padilla M.D. 09/16/2024 1:37 PM
[2024-09-16] MEDS: DICLOFENAC SOD 1% GEL 100 GM TUBE EXT SCH (14:52)
[2024-09-16] MEDS: IPRATROPIUM BROMIDE NEB SOLN 0.02% 0.5MG/2.5ML VIAL NEB STA (19:24)
[2024-09-16] MEDS: oxyCODONE HCL IR 5 MG TAB (IMMEDIATE RELEASE) PO PRN (21:10)
[2024-09-17 06:30] LABS: Hematocrit (blood only) 39.1 % (37.0-47.0); Hemoglobin 12.9 g/dl (12.0-16.0); Mean Corpuscular Hemoglobin 28.9 pg (25.0-34.0); Mean Corpuscular Volume 87.5 fL (80.0-100.0); Mean Platelet Volume 8.8 fL (9.4-12.4); Platelet Count 416 K/uL (130-400); RDW Coefficient of Variation 13.7 % (11.5-14.5); RDW Standard Deviation 44.2 fL (36.4-46.3); Red Blood Count 4.47 M/uL (4.20-5.40); White Blood Count 14.66 K/ul (4.8-10.8)
[2024-09-17 06:42] LABS: BUN Creatinine Ratio 25.3 (10-20); Calcium 9.2 mg/dl (8.6-10.3); Creatinine Clr Calc Pharmacy 121.5 ml/min; Magnesium 2.4 mg/dl (1.7-2.4); Potassium 4.3 mmol/L (3.5-5.1)
[2024-09-17] MEDS ORDERED: IPRATROPIUM BROMIDE NEB SOLN 0.02% 0.5MG/2.5ML VIAL NEB PRN (07:50)
--- NOTE | 2024-09-17 07:51 | Hospitalist Progress Note ---
Date of Service September 17, 2024 Assessment & Plan (1) Asthma exacerbation: (2) RSV (respiratory syncytial virus infection): (3) Obesity: (4) Crohn's colitis: (5) MONIQUE (obstructive sleep apnea): Plan 44 yo female with a h/o asthma, obesity, Crohn's disease on Skyrizi, allergies, GERD, and depression w/ anxiety who presents to the ED with ongoing and worsening SOB, wheezing, and chest pain after recently being discharged from hospital for asthma exacerbation and RSV infection. Reported cough up two dime- sized amounts of blood a couple nights ago. No fevers/chills but reports slight headache, L sided rib pain with coughing. PCP sent to ER for concerns PE and CTA was negative for PE or PNA. POx normal without need for O2 and got hour long neb in ER for respiratory distress, tachypnea and RR 26 w/ solumedrol IV w/ some relief #RSV/Acute asthma exacerbation/Respiratory distress -Readmission after once again failing outpt tx PO Decadrone/inhalers, no hypoxia at present but with respiratory distress and in setting immunosuppression for Crohns disease CTA chest negative for PE/PNA Solumedrol increased to TID for significant/ongoing wheezing 09/15 and will continue -- IMPROVEMENT 09/17 and consider BID for 09/18 if remains stable Duonebs QID Budesonide nebs BID Hypertonic saline added 09/15 given reports prior effective but suspect making cough/irritation worse and have STOPPED Ipatropium neb x 1 last evening, effective and made prn and discussed w/ patient Continue pulmonary toilet with incentive spirometer, flutter valve. Tessalon pearls for cough, Hycodan syrup as needed. Oxycodone/Toradol IV for breakthrough pain from MSK origin, topical voltaren available Benefit from outpt pulm f/u for repeat PFT and management of her asthma given repeat exacerbation however suspect presently 2nd to viral process. Encouraged to get her pneumonia and RSV vaccines in the future given significant asthma. Will see about having CM navigator assist w/ pulm ref/appt at dc Remains inpatient, likely will need slower taper at dc to prevent rebound admission. Monitor for any fever/hypoxia or development of bacterial PNA #Crohn's/GERD No acute issues but home Skyrizi on hold until recovered from asthma exacerbation and RSV. Vit D continued (compliance reported, higher risk severe attacks associated w/ low levels) Remains on pepcid, ppi and steroids for above. No issues reported #Depression/anxiety No acute issues and remains on home sertraline, bupropion #Obesity, BMI 57.5-needs weight loss Hold home naltrexone (presumably for weight loss) while on hydrocodone for antitussive, oxycodone for rib pain/MSK #Allergies continue Singulair, mucinex. hypertonic saline dc'd as suspect no additoinal benefit #MONIQUE Hx of such noted-- home machine in room, order to use and has been using DVT proph-Lovenox SQ, SCDs Dispo: continued inpatient stay on IV steroids and plan to decrease to BID tomorrow if continued improvement Admission and Anticipated Discharge Date Admission Date: September 16, 2024 Supervising Physician Co-Signing Physician Notes The patient was not seen by me. The chart was reviewed. Case discussed with ANDRES Jensen. Agree with assessment and plan Subjective Eval this morning, first day without significant coughing on entry. Continued on TID steroids, improvement in wheezing on exam. Some scant blood to sputum, discussed hypertonic saline may exacerbate issue and will hold off. Benefit from ipratropium neb x 1 this morning and discussed available if feeling needed to let nursing know. Will continue TID steroids today, if continued improvement decrease BID tomorrow and can transition to PO on Wednesday morning and if does well throughout the afternoon could consider dc on slower taper. Discussed ?pulm follow up. Has on occasion. Discussed rec to f/u and repeat PFT testing and management of her asthma given repeat exacerbations. Encouraged to get her pneumonia and RSV vaccines in the future given significant asthma. Questions/concerns addressed at this time. Physical Exam 2 Physical Exam: General: 44yo female, obese, laying in bed, no acute distress, reports feeling better today HEENT; head atraumatic, normocephalic, mmm, trachea midline, thick neck, CPAP in room Resp: improvement in air entry, decreased wheezing bilaterally (more end expiratory today), decreased cough, 96% on RA, no tachypnea CV: regular, sinus, no significant m/r/g, no pitting edema GI: +BS, soft/NT Neuro: nonfocal, not confused Psych: AOx3, cooperative and pleasant during encounter Results & Data Results & Data Vital Signs (Past 12 Hours) Vital Signs Temp Pulse Pulse Resp BP Pulse Ox O2 Del Method 09/17/24 07:36 80 18 96 Room Air 09/16/24 23:46 36.9 C 85 22 133/82 92 Room Air 09/16/24 21:58 80 Laboratory Results 09/17/24 06:01 09/17/24 06:01 Mag 2.4 Diagnostic Findings Chest X-Ray 09/16/24 12:31 XR chest 1V portable HISTORY: 44 years-old Female f/u, eval pna acute shortness of breath COMPARISON: 09/14/2024 TECHNIQUE: AP view of the chest FINDINGS: Small hiatal hernia. Mild cardiomegaly. Lungs are clear without pneumothorax, pleural effusion, airspace consolidation or pulmonary edema. Bones appear grossly intact. IMPRESSION: No acute process. ACT 112: Negative or not required by law. The above report was generated using voice recognition software. It may contain grammatical, syntax or spelling errors. Electronically signed by: Jerome Padilla M.D. 09/16/2024 1:37 PM PG Care Time/CCT Total # of Minutes Spent Total Time Spent with Patient: Total time spent is greater than 50% in coordination of care (as documented) at patient's floor/unit and/or counseling patient: Coding Level of Care Code 27927 SUB INP/OBS CARE MIN Diagnoses Asthma exacerbation J45.41 Asthma persistence: persistent Asthma severity: moderate RSV (respiratory syncytial virus infection) B33.8 RSV infection type: unspecified Class 3 severe obesity due to excess calories with serious comorbidity and body mass index (BMI) of 50.0 to 59.9 in adult E66.813; E66.01; Z68.43 Body mass index: BMI 50.0-59.9 Obesity classification: adult class 3 (BMI >= 40) Obesity type: due to excess calories Serious obesity comorbidity presence: with serious comorbidity Crohn's colitis K50.10 MONIQUE (obstructive sleep apnea) G47.33 (1) Asthma exacerbation Asthma persistence: persistent Asthma severity: moderate Qualified Code(s): J45.41 - Moderate persistent asthma with (acute) exacerbation (2) RSV (respiratory syncytial virus infection) RSV infection type: unspecified Qualified Code(s): B33.8 - Other specified viral diseases (3) Obesity Body mass index: BMI 50.0-59.9 Obesity classification: adult class 3 (BMI >= 40) Obesity type: due to excess calories Serious obesity comorbidity presence: with serious comorbidity Qualified Code(s): E66.813 - Obesity, class 3; E66.01 - Morbid (severe) obesity due to excess calories; Z68.43 - Body mass index [BMI] 50.0-59.9, adult
--- NOTE | 2024-09-18 07:56 | Hospitalist Progress Note ---
Date of Service September 18, 2024 Assessment & Plan (1) Asthma exacerbation: (2) RSV (respiratory syncytial virus infection): (3) Obesity: (4) Crohn's colitis: (5) MONIQUE (obstructive sleep apnea): Plan 44 yo female with a h/o asthma, obesity, Crohn's disease on Skyrizi, allergies, GERD, and depression w/ anxiety who presents to the ED with ongoing and worsening SOB, wheezing, and chest pain after recently being discharged from hospital for asthma exacerbation and RSV infection. Reported cough up two dime- sized amounts of blood a couple nights ago. No fevers/chills but reports slight headache, L sided rib pain with coughing. PCP sent to ER for concerns PE and CTA was negative for PE or PNA. POx normal without need for O2 and got hour long neb in ER for respiratory distress, tachypnea and RR 26 w/ solumedrol IV w/ some relief #RSV/Acute asthma exacerbation/Respiratory distress -Readmission after once again failing outpt tx PO Decadron/inhalers, no hypoxia at present but with respiratory distress and in setting immunosuppression for Crohns disease CTA chest negative for PE/PNA Solu-medrol 60mg IV BID initially, but with ongoing significant wheezing and distress and was increased to TID evening 09/15 with improvement on exam 09/16 and was continued for 24 hrs IMPROVED on exam today and will decrease to 60mg IV BID -- if continued improvement, plan to transition to PO prednisone in AM 48 -- would plan for SLOW taper to prevent worsening/re-admission Albuterol q6h scheduled, ipatropium made q6h scheduled Budesonide nebs BID continued Hypertonic saline dc'd and suspect was making more irritated/worsened and would avoid at dc Pulmonary toilet, incentive spirometer, flutter valve, mucinex Cough syrup, pain control for MSK pain from cough - toradol/oxycodone effective w/ topical voltaren and are available Monitor exam in AM to see if able to dc after transition to PO steroids w/ slow taper vs another 24hr monitoring given re-admission Lovenox SQ for DVT proph Encouraged to get her pneumonia and RSV vaccines in the future given significant asthma. Will see about having CM navigator assist w/ pulm ref/appt at dc #Crohn's/GERD No acute issues but home Skyrizi on hold until recovered from asthma exacerbation and RSV. Vit D continued (compliance reported, higher risk severe attacks associated w/ low levels) Remains on pepcid, ppi and steroids for above without issues reported #Depression/anxiety No acute issues and remains on home sertraline, bupropion #Obesity, BMI 57.5-needs weight loss Hold home naltrexone (presumably for weight loss) while on hydrocodone for antitussive, oxycodone for rib pain/MSK #Allergies Continue Singulair, mucinex. hypertonic saline dc'd as suspect no additional benefit and making cough/irritation worse #MONIQUE Hx of such noted-- home machine in room, order to use and has been using DVT proph-Lovenox SQ, SCDs Dispo: continued inpatient stay but decreased IV steroids to BID today, boom ipatropium and consider transition to PO steroids in AM and slow taper at [facility]. Expect dc 09/19 vs 09/20 pending repeat exam/status Admission and Anticipated Discharge Date Admission Date: September 16, 2024 Subjective Eval this morning, doing better. Actually got about 5 hours of sleep today, 4 yesterday. Less wheezing. Noting yesterday first day able to take deep breath without discomfort. Remains without hypoxia, no tachypnea. Decreasing IV steroids to BID today and if continued improvement can transition to PO steroids in AM. CM assisting w/ outpt f/u with pulmonology at [facility] for PFT testing. Tolerating diet, PO intake acceptable. Questions/concerns addressed at this time. Physical Exam 2 Physical Exam: General: 44yo female, obese, laying in bed, no acute distress, reports feeling better today, remains on room air, no tachypnea/hypoxia HEENT; head atraumatic, normocephalic, mmm, trachea midline, thick neck, CPAP in room Resp: improvement in air entry bilaterally, wheezing decreased, no rales, no tachypnea, +cough (non-productive), on room air with SpO2 sat 96% CV: regular, sinus, no significant m/r/g, no pitting edema GI: +BS, soft/NT Neuro: nonfocal, not confused Psych: AOx3, cooperative and pleasant during encounter Results & Data Results & Data Vital Signs (Past 12 Hours) Vital Signs Temp Pulse Pulse Resp BP Pulse Ox O2 Del Method 09/18/24 07:30 71 09/18/24 07:24 73 18 98 Room Air 09/18/24 03:48 36.5 C 74 15 122/82 91 CPAP 09/18/24 00:10 Room Air 09/17/24 22:37 36.7 C 86 20 119/84 95 Room Air 09/17/24 22:01 96 H 09/17/24 22:00 Room Air Laboratory Results 09/18/24 07:40 09/18/24 07:40 Mag 2.4 PG Care Time/CCT Total # of Minutes Spent Total Time Spent with Patient: Total time spent is greater than 50% in coordination of care (as documented) at patient's floor/unit and/or counseling patient: Coding Level of Care Code 75385 SUB INP/OBS CARE 350MIN Diagnoses Asthma exacerbation J45.41 Asthma persistence: persistent Asthma severity: moderate RSV (respiratory syncytial virus infection) B33.8 RSV infection type: unspecified Class 3 severe obesity due to excess calories with serious comorbidity and body mass index (BMI) of 50.0 to 59.9 in adult E66.813; E66.01; Z68.43 Body mass index: BMI 50.0-59.9 Obesity classification: adult class 3 (BMI >= 40) Obesity type: due to excess calories Serious obesity comorbidity presence: with serious comorbidity Crohn's colitis K50.10 MONIQUE (obstructive sleep apnea) G47.33 (1) Asthma exacerbation Asthma persistence: persistent Asthma severity: moderate Qualified Code(s): J45.41 - Moderate persistent asthma with (acute) exacerbation (2) RSV (respiratory syncytial virus infection) RSV infection type: unspecified Qualified Code(s): B33.8 - Other specified viral diseases (3) Obesity Body mass index: BMI 50.0-59.9 Obesity classification: adult class 3 (BMI >= 40) Obesity type: due to excess calories Serious obesity comorbidity presence: with serious comorbidity Qualified Code(s): E66.813 - Obesity, class 3; E66.01 - Morbid (severe) obesity due to excess calories; Z68.43 - Body mass index [BMI] 50.0-59.9, adult
[2024-09-18 08:01] LABS: Hematocrit (blood only) 39.9 % (37.0-47.0); Hemoglobin 12.9 g/dl (12.0-16.0); Mean Corpuscular Hemoglobin 28.5 pg (25.0-34.0); Mean Corpuscular Hgb Conc 32.3 g/dL (32.0-36.0); Mean Corpuscular Volume 88.1 fL (80.0-100.0); Mean Platelet Volume 8.6 fL (9.4-12.4); Platelet Count 388 K/uL (130-400); RDW Coefficient of Variation 13.7 % (11.5-14.5); RDW Standard Deviation 44.3 fL (36.4-46.3); Red Blood Count 4.53 M/uL (4.20-5.40); White Blood Count 13.35 K/ul (4.8-10.8)
[2024-09-18 08:24] LABS: BUN Creatinine Ratio 29.8 (10-20); Calcium 8.9 mg/dl (8.6-10.3); Creatinine Clr Calc Pharmacy 114.4 ml/min; Magnesium 2.4 mg/dl (1.7-2.4); Potassium 4.2 mmol/L (3.5-5.1)
[2024-09-18] MEDS: methylPREDNISolone 60 MG in SYRINGE 0 ML IV SCH (08:53)
[2024-09-18] MEDS ORDERED: IPRATROPIUM BROMIDE NEB SOLN 0.02% 0.5MG/2.5ML VIAL NEB SCH (13:00)
[2024-09-18] MEDS ORDERED: ALBUTEROL 0.5% NEB SOLN 2.5 MG/0.5 ML VIAL NEB SCH (13:00)
[2024-09-18] MEDS: ALBUT/IPRATROP 3MG/0.5MG NEB 3 ML VIAL NEB SCH (19:49)
--- NOTE | 2024-09-19 11:49 | Hospitalist Progress Note ---
Date of Service September 19, 2024 Assessment & Plan (1) Asthma exacerbation: (2) RSV (respiratory syncytial virus infection): (3) Obesity: (4) Crohn's colitis: (5) MONIQUE (obstructive sleep apnea): Plan 44 yo female with a h/o asthma, obesity, Crohn's disease on Skyrizi, allergies, GERD, and depression w/ anxiety. She presented to the ED with ongoing and worsening SOB, wheezing, and chest pain after recently being discharged from hospital for asthma exacerbation and RSV infection. Reported cough up two dime- sized amounts of blood a couple nights ago. No fevers/chills but reports slight headache, L sided rib pain with coughing. PCP sent to ER for concerns PE and CTA was negative for PE or PNA. #RSV/Acute asthma exacerbation/Respiratory distress - Readmission after once again failing outpatient treatment with PO Decadron/inhalers, no hypoxia at pr esent but with respiratory distress and in setting immunosuppression for Crohns disease CTA chest negative for PE/PNA Decreased Solu-Medrol to 60 mg IV once daily with plan to transition to oral steroids tomorrow -- would plan for SLOW taper to prevent worsening/re-admission Continue Albuterol q6h scheduled, ipratropium q6h scheduled, Budesonide nebs BID, Pulmonary toilet, incentive spirometer, flutter valve, mucinex Hypertonic saline discontinued and suspect was making more irritated/worsened and would avoid at discharge MSK pain from cough - continue cough syrup, Toradol/oxycodone effective w/ topical Voltaren and are available Encouraged to get her pneumonia and RSV vaccines in the future given significant asthma. Will see about having CM navigator assist w/ pulm ref/appt at dc #Crohn's/GERD - No acute issues but home Skyrizi on hold until recovered from asthma exacerbation and RSV Vit D continued (compliance reported, higher risk severe attacks associated w/ low levels) Remains on pepcid, ppi and steroids for above without issues reported #Depression/anxiety - No acute issues and remains on home sertraline, bupropion #Obesity, BMI 57.5-needs weight loss Hold home naltrexone (presumably for weight loss) while on hydrocodone for antitussive, oxycodone for rib pain/MSK #Allergies - Continue Singulair, mucinex. hypertonic saline dc'd as suspect no additional benefit and making cough/irritation worse #MONIQUE - Hx of such noted-- home machine in room, order to use and has been using DVT proph: Lovenox SQ, SCDs Dispo: Anticipate discharge home on oral steroid taper tomorrow, 09/20/24 Decreased IV steroids to once daily Admission and Anticipated Discharge Date Admission Date: September 16, 2024 Subjective Patient seen and evaluated at bedside. She reports continued improvement with her respiratory symptoms. She notes the wheezing is improved and she can take deeper breaths without pain now. She reports finally sleeping well overnight for the first time this hospitalization. She continues to have a non-productive cough and some associated rib pain due to the coughing. We discussed decreasing her IV steroids from twice daily to once daily today, and plan to discharge tomorrow on oral steroids. No additional complaints or concerns at this time. Physical Exam Physical Exam: General: No acute distress, nondiaphoretic, class III obesity. Cardiac: Regular rate and rhythm without murmurs gallops or rubs. Pulm: Reduced air entry bilaterally and minimal wheezing bilaterally. No rales or rhonchi. Normal respiratory effort. 96% on room air. Abdominal: Soft, nontender, distended secondary to body habitus. Bowel sounds present. Neuro: A&O x3. No focal neurological deficits. Results & Data Results & Data Vital Signs (Past 12 Hours) Vital Signs Temp Pulse Pulse Resp BP Pulse Ox O2 Del Method 09/19/24 10:58 98.4 F 77 18 139/84 96 Room Air 09/19/24 08:34 Room Air 09/19/24 07:43 98.1 F 73 20 123/82 98 Room Air 09/19/24 07:33 66 09/19/24 07:11 71 16 95 Room Air 09/19/24 02:33 97.7 F 70 16 155/74 H 92 CPAP 09/19/24 01:32 66 18 92 CPAP PG Care Time/CCT Total # of Minutes Spent Total Time Spent with Patient: Total time spent is greater than 50% in coordination of care (as documented) at patient's floor/unit and/or counseling patient: Coding Level of Care Code 32058 SUB INP/OBS CARE 2/35MIN Diagnoses Asthma exacerbation J45.41 Asthma persistence: persistent Asthma severity: moderate RSV (respiratory syncytial virus infection) B33.8 RSV infection type: unspecified Class 3 severe obesity due to excess calories with serious comorbidity and body mass index (BMI) of 50.0 to 59.9 in adult E66.813; E66.01; Z68.43 Body mass index: BMI 50.0-59.9 Obesity classification: adult class 3 (BMI >= 40) Obesity type: due to excess calories Serious obesity comorbidity presence: with serious comorbidity Crohn's colitis K50.10 MONIQUE (obstructive sleep apnea) G47.33 (1) Asthma exacerbation Asthma persistence: persistent Asthma severity: moderate Qualified Code(s): J45.41 - Moderate persistent asthma with (acute) exacerbation (2) RSV (respiratory syncytial virus infection) RSV infection type: unspecified Qualified Code(s): B33.8 - Other specified viral diseases (3) Obesity Body mass index: BMI 50.0-59.9 Obesity classification: adult class 3 (BMI >= 40) Obesity type: due to excess calories Serious obesity comorbidity presence: with serious comorbidity Qualified Code(s): E66.813 - Obesity, class 3; E66.01 - Morbid (severe) obesity due to excess calories; Z68.43 - Body mass index [BMI] 50.0-59.9, adult
[2024-09-20 07:41] VITALS: BP 133/81; RESP 18; TEMP 98.1; O2SAT 95
[2024-09-20] MEDS ORDERED: methylPREDNISolone 60 MG in SYRINGE 0 ML IV SCH (09:00)
[2024-09-20] MEDS: predniSONE 20 MG TAB PO STA (09:24)
[2024-09-20 11:25] VITALS: PULSE 76
--- NOTE | 2024-09-20 16:32 | Discharge Summary ---
Discharge Summary Date of Service September 20, 2024 Principal Dx & Hospital Course #1 = Principal Diagnosis (1) Asthma exacerbation: (2) RSV (respiratory syncytial virus infection): (3) Obesity: (4) Crohn's colitis: (5) MONIQUE (obstructive sleep apnea): Plan 44 yo female with a h/o asthma, obesity, Crohn's disease on Skyrizi, allergies, GERD, and depression w/ anxiety. She presented to the ED with ongoing and worsening SOB, wheezing, and chest pain after recently being discharged from hospital for asthma exacerbation and RSV infection. Reported cough up two dime- sized amounts of blood a couple nights ago. No fevers/chills but reports slight headache, L sided rib pain with coughing. PCP sent to ER for concerns PE and CTA was negative for PE or PNA. #RSV/Acute asthma exacerbation/Respiratory distress - Readmission after once again failing outpatient treatment with PO Decadron/inhalers, no hypoxia at present but with respiratory distress and in setting immunosuppression for Crohns disease CTA chest negative for PE/PNA Treated with IV Solu-Medrol while inpatient and transition to oral prednisone taper on discharge - will do prolonged taper to prevent worsening/re-admission - prednisone 40 mg x 3 days, 20 mg x 3 days, 10 mg x 3 days Continue Hycodan cough syrup Q6h PRN cough, home inhalers/nebs, incentive spirometer, flutter valve, Mucinex PRN, Tylenol PRN, Voltaren gel PRN. Hyperto nina saline discontinued and suspect was making more irritated/worsened Encouraged to get her pneumonia and RSV vaccines in the future given significant asthma Recommend outpatient pulmonology referral/follow-up #Crohn's/GERD - No acute issues but home Skyrizi on hold until recovered from asthma exacerbation and RSV Vit D continued (compliance reported, higher risk severe attacks associated w/ low levels) Remains on Pepcid, PPI and steroids for above without issues reported #Depression/anxiety - No acute issues and remains on home sertraline, bupropion #Obesity, BMI 57.5-needs weight loss Hold home naltrexone (presumably for weight loss) while on hydrocodone for antitussive, oxycodone for rib pain/MSK #Allergies - Continue Singulair, Mucinex. hypertonic saline discontinued as suspect no additional benefit and making cough/irritation worse #MONIQUE - Hx of such noted-- home machine in room, order to use and has been using DVT proph: Lovenox SQ, SCDs Dispo: Discharged home 09/20/24 Notes For Next Care Provider Recommend establishing care with pulmonology outpatient Medication Changes From Visit Prednisone taper40 mg x 3 days, 20 mg x 3 days, 10 mg x 3 days Hycodan cough syrup 5 mL q6h PRN cough Discontinued hypertonic saline nebs Admission HPI Per Admitting Provider This pt is a 44 yo female with a h/o asthma, obesity, Crohn's disease on Skyrizi, allergies, GERD, and depression w/ anxiety who presents to the ED with ongoing and worsening SOB, wheezing, and chest pain after recently being discharged from hospital for asthma exacerbation and RSV infection. She did cough up two dime-sized amounts of blood a couple nights ago. No fevers/chills. Does have a headache that just started since being in the ED. Pain in chest and left sided ribs with coughing. She was seen by PCP in f/u today and advised to come to ED for urgent CTA chest which was neg for PNA or PE. POx was normal and not requiring supplemental O2, but had ongoing respiratory distress and significant wheezing, tachypnea at RR 26/min. She received an hour long albuterol neb and IV Solu Medrol with some relief. She is being brought in for observation for ongoing acute asthma exacerbation. Discharge Exam General: No acute distress, nondiaphoretic, class III obesity. Cardiac: Regular rate and rhythm without murmurs gallops or rubs. Pulm: Reduced air entry bilaterally, wheezing now resolved. No rales or rhonchi. Normal respiratory effort. 95% on room air. Abdominal: Soft, nontender, distended secondary to body habitus. Bowel sounds present. Neuro: A&O x3. No focal neurological deficits. Discharge Plan Discharge Items Patient Disposition: Home - Self-Care Reason For Visit: RSV, ACUTE ASTHMA EXACERBATION Discharge Diagnosis: Acute asthma exacerbation, RSV Condition on Discharge: Fair Activity: Resume your previous activity Non-emergency contact: Primary Care Provider Call non-emergency contact if: you have any medication questions and your symptoms worsen Follow-up/Referrals: Bhavya Israel MD [Primary Care Provider] - (Follow-up in 1-2 weeks) Diet: Heart Healthy Addtl Attending Provider Instructions: Estefanía, You were admitted to the hospital after failing outpatient treatment for ongoing asthma exacerbation and RSV. Your chest CTA was negative for a blood clot in your lungs or pneumonia. You were treated in the hospital with IV steroids, breathing treatments, and other supportive measures. You will continue oral steroids and supportive measures at home to continue your recovery. Upon discharge from the hospital: * Follow the following oral prednisone (steroid) taper: take 40 mg (4 pills) x 3 days, then 20 mg (2 pills) x 3 days, then 10 mg (1 pill) x 3 days. You already received your dose of oral steroids for the day in the hospital prior to leaving, so start this prescription tomorrow, 09/21/2024. * You can take Hycodan (opioid cough suppressant) every 6 hours as needed for cough. Since this is an opioid medication, do not drive or operate heavy machinery while taking this. * Continue your home inhalers, breathing treatments, and over the counter supportive measures (Tylenol, Mucinex, Voltaren gel, flutter valve, incentive spirometer). * STOP your hypertonic saline nebulizers, as this may have been causing irritation/worsening cough, and likely no additional benefit. * Follow-up with your PCP in 1-2 weeks. * Follow-up with pulmonology outpatient. * Recommend you get pneumonia and RSV vaccines in the future given your significant asthma. * You may return to work on 09/25/24, with no restrictions. A work note has been included with your discharge paperwork. Please return to the hospital if you experience any of the following: shortness of breath, difficulty breathing, chest pain, lightheadedness, passing out, confusion, or any other symptoms concerning for you. It was a pleasure taking care of you while you were in the hospital! Pending Studies at Discharge: No Stand-Alone Forms: [employer], Work/School Release, Smoking Cessation Medications and DC Order Prescriptions: New hydrocodone-homatropine [Hycodan] 5-1.5 mg/5 mL (5 mL) solution 5 ml PO Q6H PRN (Reason: cough) Qty: 200 0RF prednisone 10 mg tablet 10 mg PO DIRECTED Qty: 21 0RF Rx Instructions: see taper instructions: take 40 mg x 3 days, then 20 mg x 3 days, then 10 mg x 3 days Continued Airsupra 90-80 mcg/actuation HFA aerosol inhaler 2 inh inhalation QID PRN (Reason: shortness of breath or wheezing) Qty: 10.7 4RF Skyrizi 360 mg/2.4 mL (150 mg/mL) wearable injector See Rx Instructions .ROUTE .COMPLEX Qty: 2.4 6RF Dose Instruction: INSERT 1 CARTRIDGE INTO ON-BODY INJECTOR AND INJECT 360 MG UNDER THE SKIN EVERY 8 WEEKS. Rx Instructions: INSERT 1 CARTRIDGE INTO ON-BODY INJECTOR AND INJECT 360 MG UNDER THE SKIN EVERY 8 WEEKS. pantoprazole [Protonix] 40 mg tablet,delayed release (DR/EC) 40 mg PO BID Qty: 180 3RF albuterol sulfate 90 mcg/actuation HFA aerosol inhaler 1 - 2 puff INHALATION Q6H PRN (Reason: Shortness Of Breath) Qty: 6.7 3RF famotidine [Pepcid] 40 mg tablet 40 mg PO BID Qty: 180 3RF vitamin D3-vitamin K2 125 mcg (5,000 unit)-100 mcg capsule 2 cap PO DAILY benzonatate 100 mg capsule 100 mg PO Q8H PRN (Reason: cough) Qty: 12 0RF montelukast [Singulair] 10 mg tablet 10 mg PO HS Qty: 90 1RF multivitamin Tablet 1 tab PO QAM bupropion HCl [Wellbutrin SR] 150 mg tablet sustained-release 12 hr 150 mg PO BID naltrexone 50 mg tablet 25 mg PO BID sertraline [Zoloft] 100 mg tablet 150 mg PO DAILY Patient Comments: qam dextromethorphan-guaifenesin 10-100 mg/5 mL Syrup 5 ml PO Q6H PRN (Reason: cough) Qty: 150 0RF ipratropium-albuterol 0.5 mg-3 mg(2.5 mg base)/3 mL solution for nebulization 3 ml inhalation QID PRN (Reason: wheezing) Qty: 90 0RF fluticasone furoate-vilanterol [Breo Ellipta] 100-25 mcg/dose blister with dev ice 1 inh inhalation DAILY Qty: 60 0RF Discontinued dexamethasone 2 mg tablet See Taper PO DAILY Qty: 18 0RF Taper: Taper, Blank 6 mg DAILY for 3 Days 4 mg DAILY for 3 Days 2 mg DAILY for 3 Days Rx Instructions: start taper 09/11 sodium chloride 7 % solution for nebulization 1 inh inhalation BID 7 Days Qty: 56 0RF Discharge Orders: Discharge Order (Routine); Ordered 09/20/24 Ordered By: Jen Galan Admission Data Admit Date/Time: 09/16/24 11:29 Attending Provider: Nic Nair Admit Provider: Katy Bassett Primary Care Provider: Bhavya Israel Other Providers: Nic Nair; Katy Bassett Other Interventions: Discharge Summary Assessment (RN) Last Done: 09/20/24 11:21 Hospital Stay Data Consultations 09/14/24 16:09 ED Decision to Admit Stat 09/14/24 17:21 ED Decision to Admit Stat Diagnostic Imagining Performed Chest X-Ray 09/14/24 13:08 XR chest 1V not portable CLINICAL HISTORY: Chest pain, nonspecific COMPARISON STUDY: 09/08/2024 FINDINGS: No significant interval changes are noted. There is mild cardiomegaly. Pulmonary vascularity is unremarkable. There is no focal airspace opacity, pne umothorax, pleural effusion, or atelectasis. IMPRESSION: Stable exam; no acute process ACT 112: Negative or not required by law. Electronically signed by: Jemima Nolasco M.D. 09/14/2024 2:18 PM Chest CTA 09/14/24 13:27 CT ANGIOGRAM OF THE CHEST CLINICAL HISTORY: Midsternal chest pain. Shortness of breath. Evaluate for pulmonary embolus. COMPARISON STUDY: Chest CT August 09, 2023. Chest radiograph September 14, 2024 at 2:09 PM. TECHNIQUE: Following the IV administration of 115 cc of Optiray 320, CT angiogram of the chest was performed from the upper abdomen to the thoracic inlet utilizing the pulmonary embolus protocol. Images are reviewed in the axial, sagittal, and coronal planes. 3-D MIPS images are created and assessed. IV contrast was administered without complication. A dose lowering technique was utilized adhering to the principles of ALARA. CT DOSE: 811.98 mGy.cm FINDINGS: No pulmonary emboli are identified although subsegmental pulmonary arteries are suboptimally assessed due to artifact. The heart is mildly enlarged. There is no pericardial effusion. There is no thoracic aortic dissection. No thoracic lymphadenopathy is present. A moderate sized hiatal hernia is present. There are trace bilateral pleural effusions. No pneumothorax. There is no consolidation to suggest pneumonia. Groundglass opacities within the lungs favor atelectasis. There are no suspicious pulmonary nodules. IMPRESSION: 1. No pulmonary emboli identified although subsegmental pulmonary arteries suboptimally assessed. 2. No consolidation to suggest pneumonia. 3. Trace bilateral pleural effusions. 4. Mild cardiomegaly. 5. No change in a moderate sized hiatal hernia. ACT 112: Negative or not required by law. Electronically signed by: Wojciech Emery M.D. 09/14/2024 3:44 PM Chest X-Ray 09/16/24 12:31 XR chest 1V portable HISTORY: 44 years-old Female f/u, eval pna acute shortness of breath COMPARISON: 09/14/2024 TECHNIQUE: AP view of the chest FINDINGS: Small hiatal hernia. Mild cardiomegaly. Lungs are clear without pneumothorax, pleural effusion, airspace consolidation or pulmonary edema. Bones appear grossly intact. IMPRESSION: No acute process. ACT 112: Negative or not required by law. The above report was generated using voice recognition software. It may contain grammatical, syntax or spelling errors. Electronically signed by: Jerome Padilla M.D. 09/16/2024 1:37 PM Pending Results Patient Have Any Pending Studies at Discharge: No Discharge Instructions Given to Patient (Per Discharging Provider) Estefanía, You were admitted to the hospital after failing outpatient treatment for ongoing asthma exacerbation and RSV. Your chest CTA was negative for a blood clot in your lungs or pneumonia. You were treated in the hospital with IV steroids, breathing treatments, and other supportive measures. You will continue oral steroids and supportive measures at home to continue your recovery. Upon discharge from the hospital: * Follow the following oral prednisone (steroid) taper: take 40 mg (4 pills) x 3 days, then 20 mg (2 pills) x 3 days, then 10 mg (1 pill) x 3 days. You already received your dose of oral steroids for the day in the hospital prior to leaving, so start this prescription tomorrow, 09/21/2024. * You can take Hycodan (opioid cough suppressant) every 6 hours as needed for cough. Since this is an opioid medication, do not drive or operate heavy machinery while taking this. * Continue your home inhalers, breathing treatments, and over the counter supportive measures (Tylenol, Mucinex, Voltaren gel, flutter valve, incentive spirometer). * STOP your hypertonic saline nebulizers, as this may have been causing irritation/worsening cough, and likely no additional benefit. * Follow-up with your PCP in 1-2 weeks. * Follow-up with pulmonology outpatient. * Recommend you get pneumonia and RSV vaccines in the future given your significant asthma. * You may return to work on 09/25/24, with no restrictions. A work note has been included with your discharge paperwork. Please return to the hospital if you experience any of the following: shortness of breath, difficulty breathing, chest pain, lightheadedness, passing out, confusion, or any other symptoms concerning for you. It was a pleasure taking care of you while you were in the hospital! Total Time Total Time Spent Total Time Spent (In Minutes): Greater than 30 minutes spent completing this discharge process including direct patient care, medication reconciliation, documentation, review of labs and images, and coordination of care. Coding Level of Care Code 01124 INP/OBS DISCH >30 MIN Diagnoses Asthma exacerbation J45.41 Asthma persistence: persistent Asthma severity: moderate RSV (respiratory syncytial virus infection) B33.8 RSV infection type: unspecified Class 3 severe obesity due to excess calories with serious comorbidity and body mass index (BMI) of 50.0 to 59.9 in adult E66.813; E66.01; Z68.43 Obesity type: due to excess calories Obesity classification: adult class 3 (BMI >= 40) Serious obesity comorbidity presence: with serious comorbidity Body mass index: BMI 50.0-59.9 Crohn's colitis K50.10 MONIQUE (obstructive sleep apnea) G47.33
== END 2024-09-20 12:30 | disposition home or self-care (01) | DRG 202 ==
LOC: ED 13:04 → EDINP 13:04 → SUATTDRO 18:07 → 2W 21:28 → SUATTDRO 09-16 11:29